=== PATIENT | female | born 1970 | race Caucasian/White ===

== ENCOUNTER → 2022-04-04 | Outpatient (CLI) | payer OTHER | END | disposition home or self-care (01) | LOC: DTH 09:38 | PROVIDERS: ATTEND Surgery | DX: Z71.3 Dietary counseling and surveillance (principal); K76.0 Fatty (change of) liver, not elsewhere classified; I10 Essential (primary) hypertension; E11.9 Type 2 diabetes mellitus without complications; M19.91 Primary osteoarthritis, unspecified site; G47.33 Obstructive sleep apnea (adult) (pediatric); E66.01 Morbid (severe) obesity due to excess calories; Z68.42 Body mass index [BMI] 45.0-49.9, adult | CPT/HCPCS: 97802 ==

== ENCOUNTER 2025-07-16 12:35 | Inpatient (IN) | payer OTHER ==
[2025-07-16] VITALS (21 sets, daily range): BP systolic 158–201; BP diastolic 63–125; PULSE 59–96; RESP 12–34; TEMP 98.3; O2SAT 98
[~2025-07-16] VITALS: Ht 162.6 cm; Wt 110.6 kg
[2025-07-16 12:58] LABS: IMMATURE GRANULOCYTE ABSOLUTE 0.02 K/uL (0-1); NUCLEATED RED BLOOD CELLS 0.0 % (0.0-0.19); PLATELET COUNT (AUTO) 201 K/uL (130-400); RED BLOOD CELL COUNT(AUTO) 4.68 MIL/uL (4.00-5.50); RED CELL DISTRIBUTION WIDTH 12.0 % (11.0-15.5); WHITE BLOOD COUNT (AUTO) 9.1 K/uL (4.8-10.8)
[2025-07-16 13:06] LABS: CREATININE 0.6 mg/dL (0.5-1.0); GLOMERULAR FILTR. RATE CALC 106.0 mL/min (>90); GLUCOSE,RANDOM 129.0 mg/dL (70-105); SODIUM SERUM 144.0 mmol/L (136-145); UREA NITROGEN, BLOOD 10.0 mg/dL (7-18)
[2025-07-16 13:11] LABS: CREATINE KINASE, TOTAL 83.0 U/L (21-232); LDL DIRECT 96.0 mg/dL (0-99)
[2025-07-16 13:17] LABS: INR 0.97 (0.85-1.15)
--- NOTE | 2025-07-16 13:18 | HMCIMG ---
EXAM: CT Head Without IV contrast. CLINICAL HISTORY: stroke, L sided numbness TECHNIQUE: Axial computed tomography images of the head/brain without intravenous contrast. COMPARISON: None provided. FINDINGS: BRAIN: Age-related cerebral atrophy. No evidence of acute haemorrhage. No mass lesion. No CT evidence for acute territorial infarct. No midline shift or extra-axial collections. VENTRICLES: No hydrocephalus. ORBITS: The orbits are unremarkable. SINUSES AND MASTOIDS: Mild left-sided mastoiditis. The paranasal sinuses and right mastoid air cells are clear. BONES: No fracture. SOFT TISSUES: Unremarkable. IMPRESSION: 1. No acute intracranial findings. 2. Mild left-sided mastoiditis. /[place]
--- NOTE | 2025-07-16 13:19 | ERN ---
General Chief Complaint: Stroke Symptoms Stated Complaint: LT SIDED NUMBNESS Time Seen by MD: 12:39 History of Present Illness Initial Comments 55-year-old female, history of hypertension, presents for left-sided arm numbness and leg numbness. Patient reports at 10:30 a.m. on 07/16/2025 she noticed some left-sided arm tingling and numbness. She reports that it radiated down to her leg into her face. No other focal neurologic deficits. No headache or vision changes. No vomiting or diarrhea. She has otherwise been in her normal state of health without any other complaints. Allergies: Coded Allergies: Amoxicillin (Unverified Allergy, Intermediate, HIVES,ITCHING, 02/09/12) Sulfamethoxazole (Unverified Allergy, Intermediate, HIVES,ITCHING, 02/09/12) trimethoprim (Unverified Allergy, Intermediate, HIVES,ITCHING, 02/09/12) Past Medical History Past Medical History: Diabetes-Type II, Hypertension Past Surgical History: Cholecystectomy Surgical History Other: GASTRIC BYPASS ROS Dictation CONSTITUTIONAL: No chills, no fever, no weakness, no diaphoresis, no malaise. HEAD/FACE: No signs of trauma. EENT: No eye pain, no blurred vision, no tearing, no double vision, no ear pain, no ear discharge, no nose pain, no nasal congestion, no throat pain, no throat swelling, no mouth pain. RESPIRATORY: No cough, no orthopnea, no SOB, no stridor, no wheezing. CARDIOVASCULAR: No chest pain, no edema, no palpitations, no syncope. GASTROINTESTINAL/ABDOMINAL: No abdominal pain, no constipation, no diarrhea, no nausea, no vomiting. GENITOURINARY: No abnormal discharge, no dysuria, no frequent urination, no hematuria. No complaints of pain in the genitals. MUSCULOSKELETAL: Arm numbness, leg numbness INTEGUMENTARY: No change in color, no change in hair/nails, no dryness, no lesion, no lumps, no rash. NEUROLOGICAL/PSYCH: No anxiety, not depressed, no emotional problem, no headache, no numbness, no pre-existing deficit, no history of seizures, no tremors, no weakness. HEMATOLOGIC/LYMPHATIC: Not anemic, no history of blood clots, no apparent bleeding, no bruising, glands not swollen. All Systems Negative, Except as Noted. Physical Exam Physical Exam Dictation VITAL SIGNS: Reviewed. GENERAL APPEARANCE: Alert, oriented x3, no acute distress, obese. HEAD AND FACE: Non-traumatic. EYES: PERRL, pink conjunctivas, eyelid no trauma, anterior chamber clear. EARS: Pinnas intact and no signs of trauma or erythema. Ear canals clear and no discharge. TMs no erythema. NOSE: No discharge, no bleeding. OROPHARYNX: Mouth normal, teeth no caries, tongue pink. Pharynx clear, no erythema. Tonsils no exudates, no abscesses noted. Mucous membrane moist. NECK: Supple, non-tender, no thyromegaly, no masses, no JVD, no bruits. BREAST: Deferred. CHEST: No tenderness, no crepitus, no paradoxical movement, no retractions. LUNGS: Clear, well-ventilated, symmetric, no rales, no wheezing, no rhonchi, no stridor, good breath sounds bilaterally. HEART: Regular rate, regular rhythm, no murmur, no gallops. VASCULAR: No peripheral edema. ABDOMEN: Soft, positive bowel sounds, nondistended, no guarding, nontender, no rebound, no masses no hepatomegaly, no splenomegaly, no Jacques's sign, no hernias. RECTAL: Deferred. GENITAL: Deferred. NEUROLOGICAL: Normal speech, gross motor function intact, gross sensory function intact. MUSCULOSKELETAL: Neck nontender, full range of motion, back nontender, full range of motion. EXTREMITIES: Nontender, full range of motion. SKIN: Color pink, dry, no turgor, no rash, no lacerations, no abrasions, no contusions. LYMPHATICS: Deferred. NIH STROKE SCALE: NIH STROKE SCALE Response (Comments) Value Level of Consciousness Alert 0 Ask patient month and their age Answers both correct 0 Command to open eyes, make fist and let go Obeys both correct 0 Best gaze (horizontal eye movement) Normal 0 Visual Field Testing No Visual Field Loss 0 Facial Paresis Normal / Symmetrical 0 Motor Function - Left Arm Normal 0 Motor Function - Right Arm Normal 0 Motor Function - Left Leg Normal 0 Motor Function - Right Leg Normal 0 Limb Ataxia No Ataxia 0 Sensory-pin prick to arms, legs, trunk and face Mild to Moderate Decrease 1 Best Language (describe picture, name items and read) No Aphasia 0 Dysarthria (read several words) Normal Articulation 0 Extinction and Inattention Normal 0 Total 1 Results Laboratory and Microbiology Lab and Micro Result Laboratory Tests Test 07/16/25 12:46 07/16/25 12:53 Whole Blood Glucose 137 MG/DL (70-110) H White Blood Count 9.1 K/uL (4.8-10.8) Red Blood Count 4.68 MIL/uL (4.00-5.50) Hemoglobin 15.5 g/dL (12.0-16.0) Hematocrit 46.4 % (36-48) Mean Corpuscular Volume 99.1 fL (79-99) H Mean Corpuscular Hemoglobin 33.1 pg (27.0-33.0) H Mean Corpuscular Hemoglobin Concent 33.4 g/dL (32.0-36.0) Red Cell Distribution Width 12.0 % (11.0-15.5) Platelet Count 201 K/uL (130-400) Mean Platelet Volume 10.5 fL (7.5-10.5) Immature Granulocyte % (Auto) 0.2 % (0-1) Neutrophils (%) (Auto) 58.1 % (40.0-77.0) Lymphocytes (%) (Auto) 32.3 % (21.0-51.0) Monocytes (%) (Auto) 7.4 % (3.0-13.0) Eosinophils (%) (Auto) 1.5 % (0.0-8.0) Basophils (%) (Auto) 0.5 % (0.0-5.0) Neutrophils # (Auto) 5.3 K/uL (1.8-7.7) Lymphocytes # (Auto) 2.9 K/uL (1.0-4.8) Monocytes # (Auto) 0.7 K/uL (0.1-1.0) Eosinophils # (Auto) 0.14 K/uL (0.00-0.70) Basophils # (Auto) 0.05 K/uL (0.00-0.20) Absolute Immature Granulocyte (auto 0.02 K/uL (0-1) Nucleated Red Blood Cells 0.0 % (0.0-0.19) Prothrombin Time 10.3 SEC (9.6-11.6) Prothromb Time International Ratio 0.97 (0.85-1.15) Activated Partial Thromboplast Time 24.4 SEC (26.3-35.5) L Sodium Level 144 mmol/L (136-145) Potassium Level 3.8 mmol/L (3.5-5.1) Chloride Level 104 mmol/L (101-111) Carbon Dioxide Level 31 mmol/L (21-32) Blood Urea Nitrogen 10 mg/dL (7-18) Creatinine 0.6 mg/dL (0.5-1.0) Glomerular Filtration Rate Calc 106 mL/min (>90) Random Glucose 129 mg/dL (70-105) H Hemoglobin A1c 6.1 % (4.0-6.0) H Estimated Average Glucose (eAG) 128 mg/dL (70-126) H Total Calcium 9.2 mg/dL (8.5-10.1) Total Creatine Kinase 83 U/L (21-232) Troponin I High Sensitivity 11 ng/L (4-50) LDL Cholesterol 96 mg/dL (0-99) Procalcitonin < 0.05 ng/mL (0.05-0.5) L Thyroid Stimulating Hormone (TSH) 1.19 uIU/mL (0.36-3.74) MDM CC: L sided numbness Historian: patient Comorbidities: HTN, obesity Limitations: none Ddx: stroke, TIA, spinal pathology, anxiety, other VS: HTN 229/127, other VSS LKW: 1030am 07/16/25 Initally came in as a code stroke. NIHSS 1. Went to CT scanner, CT head w/o contrast per my independent interpretation shows no acute bleeding. Confirmed with the radiologist no acute bleeding. Spoke with teleneurologist, Dr. Mccain. We agreed that patient has a very low NIHSS, not a good candidate for TNK at this time. He does recommend a full stroke workup including CT you angiogram, MRI, echocardiogram. Patient's blood pressure was still mildly elevated in the ER, given a dose of hydralazine. Given an aspirin. Patient admitted to hospitalist service for full workup. ED Course Orders Procedure Category Date Status Time Cbc With Differential LAB 07/16/25 Complete 12:48 Prothrombin Time With LAB 07/16/25 Complete INR 12:48 Partial LAB 07/16/25 Complete Thromboplastin Time 12:48 Ct Head/Brain W/O CT 07/16/25 Resulted Contrast 12:48 Chest 1vw RAD 07/16/25 Resulted 12:48 12 Lead Ekg Tracing- EKG 07/16/25 Complete Technical 12:48 Creatine Kinase, Total LAB 07/16/25 Complete 12:48 Ldl Direct LAB 07/16/25 Complete 12:48 Troponin I High LAB 07/16/25 Complete Sensitivity 12:48 Urinalysis Profile LAB 07/16/25 Logged 12:48 Bedside Glucose CPOE 07/16/25 Transmitted Fingerstick 12:48 Basic Metabolic Panel LAB 07/16/25 Complete 12:48 Ct Angio Head And Neck CT 07/16/25 Resulted 13:46 Hydralazine 20mg Inj PHA 07/16/25 Complete (Apresoline 20mg In 14:30 Aspirin 325mg Tab PHA 07/16/25 Complete (Aspirin 325mg Tab) 14:30 Iohexol (Omnipaque) PHA 07/16/25 Complete 14:13 Iohexol (Omnipaque) PHA 07/16/25 Complete 14:17 Current Medications Medications (Trade) Dose Ordered Sig/Sanjiv Route PRN Reason Start Time Stop Time Status Last Admin Dose Admin Aspirin (Aspirin 325mg Tab) 325 mg ONCE ONCE PO 07/16/25 14:30 07/16/25 14:31 DC 07/16/25 16:03 Hydralazine HCl (APRESOLine 20MG INJ) 10 mg ONCE ONCE IV 07/16/25 14:30 07/16/25 14:31 DC 07/16/25 16:03 Iohexol (Omnipaque) 75 ml STK-MED ONCE IV 07/16/25 14:13 07/16/25 14:13 DC Iohexol (Omnipaque) 75 ml STK-MED ONCE IV 07/16/25 14:17 07/16/25 14:17 DC Vital Signs Date Time Temp Pulse Resp B/P (MAP) Pulse Ox O2 Delivery O2 Flow Rate FiO2 07/16/25 16:03 185/89 07/16/25 15:10 72 20 175/100 99 Room Air* 0 21 07/16/25 14:00 75 20 196/80 99 Room Air* 0 21 07/16/25 13:07 98.6 89 20 202/80 99 Room Air* 0 21 07/16/25 12:42 98.2 75 16 229/127 97 Room Air 0 DX & DISP Disposition: Inpatient Departure Impression: Primary Impression: Stroke-like symptom Additional Impression: Accelerated hypertension Critical Time: 30 minutes (Critical Care Procedure NoteAuthorized and Performed by: meTotal critical care time: Approximately 36 minutesDue to a high probability of clinically significant, life threatening deterioration, the patient required my highest level of preparedness to intervene emergently and I personally spent this critical care time directly and personally managing the patient. This critical care time included obtaining a history; examining the patient; pulse oximetry; ordering and review of studies; arranging urgent treatment with development of a management plan; evaluation of patient's response to treatment; frequent reassessment; and, discussions with other providers.This critical care time was performed to assess and manage the high probability of imminent, life-threatening deterioration that could result in multi-organ failure. It was exclusive of separately billable procedures and treating other patients and teaching time.Please see MDM section and the rest of the note for further information on patient assessment and treatment.) Condition: Stable SHANNAN BOWEN DO Jul 16, 2025 13:19
--- NOTE | 2025-07-16 13:24 | CONS ---
CONSULT NOTE: [facility] Note # Demographics Consult Type: General Neurology Patient Location: Emergency Room First Name: JACLYN Last Name: MISHA MANZANO Date of : 1970 Age: 55 Gender: Female Facility: [facility] Time of Initial Page (Central Time): 07/16/2025 12:56 First Contact with Site (Central Time): 07/16/2025 12:56 # HPI History: at 1030am, numbness in LUE and LLE and left face. no other deficits. NIHSS 1. h/o HTN and obesity. on beaming in, pt reportedly in scanner. they will notify back when pt is back and ready for eval. mild STRONG. no neck pain. Associated Symptoms: - no light sensitivity - no sound sensitivity - no nausea - no vomiting Quality: - no word finding difficulty - no weakness - no slurred speech # Scores Time of exam and NIHSS (Central Time): 07/16/2025 13:18 Level of Consciousness 1a: [0] = Alert; keenly responsive LOC Questions 1b: [0] = Answers both questions correctly LOC Commands 1c: [0] = Performs both tasks correctly Best Gaze 2: [0] = Normal Visual 3: [0] = No visual loss Facial Palsy 4: [0] = Normal symmetrical movements Motor Arm Left 5a: [0] = No drift Motor Arm Right 5b: [0] = No drift Motor Leg Left 6a: [0] = No drift Motor Leg Right 6b: [0] = No drift Limb Ataxia 7: [0] = Absent Sensory 8: [1] = Bvyu-la-oipempip sensory loss Best Language 9: [0] = No aphasia Dysarthria 10: [0] = Normal Extinction and Inattention 11: [0] = No abnormality NIHSS Total: 1 # Data Time Head CT personally read by me (Central Time): 07/16/2025 13:[address]: - no bleed # Assessment Impression: - Ischemic Stroke (Acute) Differential Diagnosis: - Stroke Mimic # Plan Thrombolytic/Intervention: NOT IV Thrombolysis or IA Intervention candidate Thrombolytic Exclusion (< 3 hour window): - non-disabling deficit Intraarterial Exclusion: - non-disabling Target Blood Pressure: - SBP < 220 - DBP < 120 Labs: - ESR - hemoglobin A1c - lipid panel - TSH - B12 Imaging: (urgency: STAT): - CT Angiogram Head and CT Angiogram Neck AND call back with results if abnormal Imaging: (urgency: routine): - MRI Brain without contrast if possible Diagnostic Test: - echo with bubble study Therapy/Evaluation: - NPO until swallow evaluation Medication: - start statin with goal of LDL < 70 - aspirin 81 mg daily DVT Prophylaxis: - SCD - chemical DVT prophylaxis Other: - If patient has any neurological deterioration please call me back immediately - telemetry monitoring - I have discussed my recommendations with the referring provider - will need event monitor or loop recorder as outpatient if atrial fibrillation not found as inpatient - would not pursue stroke work-up if MRI is negative - permissive hypertension Additional Recommendations: if MRi shows a stroke and no etiology found, recommend Adding plavix for 21 days and life long ASA. # Logistics Attestation of consult completion: The patient is located at: [facility]. Facility staff participated in the visit. I performed this telemedicine visit from my offsite office utilizing interactive 2 way audio and visual telecommunication technology at the request of the onsite emergency room provider. Total time spent in telemedicine encounter: I spent 15 minutes reviewing clinical data and/or imaging, obtaining history, examining the patient, communicating with the onsite care team, and in preparation of this report. # Demographics First Name: JACLYN Last Name: MISHA MANZANO Facility: [facility] MICHELLE HOBSON MD Jul 16, 2025 13:24
--- NOTE | 2025-07-16 13:56 | EKG ---
[facility] Test Date: 2025-07-16 Test Time: 13:22:13 Pat Name: JACLYN MANZANO Department: [facility] Room: 216 Gender: F Adoption Counselor: [id number] : 1970 Requested By: SHANNAN BOWEN Order Number: [id number] Reading MD: Jay Lynne Measurements Intervals [place] Rate: 81 P: 40 CO: 164 QRS: -56 QRSD: 155 T: 0 QT: 434 QTc: 516 Interpretive Statements Sinus rhythm Sinus arhythmia Probable left atrial enlargement RBBB and LAFB No previous ECG available for comparison Electronically Signed On 07-17-2025 06:59:57 CDT by Jay Lynne Please click the below link to view image of tracing.
--- NOTE | 2025-07-16 13:56 | HMCIMG ---
EXAM: CR Chest, 1 View. CLINICAL HISTORY: stroke COMPARISON: None provided. FINDINGS: LUNGS: The lungs show no infiltrate or other acute finding. PLEURAL SPACES: No evidence of pleural effusion or pneumothorax. MEDIASTINUM: Cardiac size and mediastinal contours within normal limits. BONES: No aggressive appearing osseous lesion seen. IMPRESSION: No acute cardiopulmonary pathology is evident. /[place]
[2025-07-16] MEDS ORDERED: IOHEXOL-350 75 ML VIAL IV ONE ×2 (14:13→14:17)
--- NOTE | 2025-07-16 15:59 | HMCIMG ---
EXAM: CTA Head and Neck with and without Intravenous Contrast. CLINICAL HISTORY: stroke symptoms, left sided numbness TECHNIQUE: Axial CTA images of the head and neck performed with and without intravenous contrast in the arterial phase. Coronal and sagittal reformatted images were generated and reviewed. 3-D reformatted images generated on an independent workstation were also reviewed. NASCET criteria were used in assessment of stenosis. CONTRAST: Contrast injected without incident. COMPARISON: None provided. FINDINGS: VASCULATURE:NECK: COMMON CAROTID ARTERIES No significant stenosis. No dissection or occlusion. EXTERNAL CAROTID ARTERIES Patent. INTERNAL CAROTID ARTERIES No stenosis by NASCET criteria. No dissection or occlusion. VERTEBRAL ARTERIES No significant stenosis. No dissection or occlusion. HEAD: ANTERIOR CEREBRAL ARTERIES No significant stenosis. No occlusion. No aneurysm. MIDDLE CEREBRAL ARTERIES No significant stenosis. No occlusion. No aneurysm. POSTERIOR CEREBRAL ARTERIES No significant stenosis. No occlusion. No aneurysm. BASILAR ARTERY No significant stenosis. No occlusion. No aneurysm. OTHER: SOFT TISSUES No acute finding. BONES No acute osseous abnormality. IMPRESSION: Unremarkable CTA of the head and neck. /[place]
[2025-07-16] MEDS: ASPIRIN 325MG TAB PO ONE (16:03)
--- NOTE | 2025-07-16 16:53 | HP ---
[facility] HISTORY [facility] PHYSICAL Date of Service: Jul 16, 2025 Time of Service: 16:42 HISTORY OF PRESENT ILLNESS: 55-year-old female with past medical history of gastric bypass surgery, gastric who presented to the hospital secondary to paresthesias on the left upper and lower extremity. Patient states around 9:45 a.m. today she noted that she was having upper and lower extremity paresthesias. She also felt that her left upper extremity was heavy. She has never had this symptoms before. She was able to ambulate and denied any dysphagia, slurred speech, word-finding difficulty. She did have episode of headache with her symptoms. She denied any upper extremity and lower extremity weakness. Denied any changes in her appetite. Denied any nausea, vomiting, abdominal pain, shortness of breath, chest pain. She does state she had an episode of abdominal pain yesterday which resolved without intervention. Denied any changes in her bowel movement. She does take multivitamins at home but denies any previous history of hypertension. She currently does not take any antihypertensives at home. She did complain of left facial paresthesias but denied any vision changes, swallowing difficulties. Her symptoms improved after she came to the hospital Labs in the ED were notable for white count of 9.1, hemoglobin was 15.5, MCV was 99.1, platelet count was 201 K, sodium was 144, potassium was 3.8, creatinine was 0.6, troponin was negative x1, LDL cholesterol was 96 Patient underwent a chest x-ray which showed no acute abnormality. She underwent a CT head which showed no intracranial findings. Did show mild left- sided mastoiditis, patient underwent a head and neck CT angiogram which showed no acute significant stenosis. Presentation to the ED patient's blood pressure was 229/127, heart rate was 75, oxygen was 97% on room air. Tele neurology was consulted in the ED and patient was noted to have NIH stroke scale of one. She was deemed not to be a candidate for tPA. REVIEW OF SYSTEMS CONSTITUTIONAL: Denies fevers, chills, or night sweats. No unintentional weight loss reported. NEUROLOGICAL: Denies headache, amaurosis fugax, motor weakness, gait abnormalities, or tremors. Positive for paresthesias in the left upper and lower extremity. Positive for decreased strength in the left upper arm ENT: No hearing loss, otalgia, otorrhea, rhinitis, rhinorrhea, hoarseness, or sore throat. CARDIOVASCULAR: Denies any exertional angina, dyspnea on exertion, orthopnea, paroxysmal nocturnal dyspnea, palpitations, life-threatening arrhythmias, claudication. PULMONARY: Denies any shortness of breath, cough, phlegm/sputum, hemoptysis, pleuritic chest pain. GASTROINTESTINAL: Denies any type of dysphagia to either liquids or solids. Denies nausea, vomiting, pyrosis, early satiety, abdominal pain, diarrhea, constipation, or changes in stool consistency or caliber. Denies coffee-ground emesis, hematemesis, hematochezia, or melanotic stools. GENITOURINARY: Denies frequency, urgency, nocturia, hematuria or incontinence (Storage/Irritative symptoms.) Low urinary stream, straining to void, urinary intermittency or hesitancy, splitting of the voiding stream, terminal dribbling. ENDOCRINOLOGIC: Denies polyuria, polydipsia, polyphagia or heat/cold intolerances. HEMATOLOGIC: Denies thrombophilia/previous clots, or coagulopathy/bleeding disorders. ONCOLOGIC: Denies personal history of malignancy. DERMATOLOGIC: Denies rashes or pruritus. PSYCHIATRIC: Denies any suicidal or homicidal ideation. Denies hallucinations. PAST MEDICAL HISTORY: Obesity PAST SURGICAL HISTORY: Gastric bypass surgery, gastric sleeve PAST SOCIAL HISTORY: Denied any smoking, alcohol, drug use FAMILY HISTORY: Denied any pertinent family history Coded Allergies: Amoxicillin (Unverified Allergy, Intermediate, HIVES,ITCHING, 02/09/12) Sulfamethoxazole (Unverified Allergy, Intermediate, HIVES,ITCHING, 02/09/12) trimethoprim (Unverified Allergy, Intermediate, HIVES,ITCHING, 02/09/12) PHYSICAL EXAM GENERAL APPEARANCE: The patient is awake, alert, and oriented, in no acute c ardiopulmonary distress. NEUROLOGICAL: Cranial nerves II-XII grossly intact. Motor is 5/5 in bilateral upper and lower extremities proximal to distal. No sensory deficits. HEENT: Face is symmetric. Pupils are equal and reactive. Extraocular movements are intact. NECK: Supple. No JVD. No thyromegaly. No submental, submandibular, pre- /postauricular, occipital or supraclavicular lymphadenopathy. CHEST: Normal chest expansion. No Telemetry. LUNGS: Absence of any rales, rhonchi or any wheezing. CARDIOVASCULAR: Regular. S1 and S2 normal. No appreciable rubs, murmurs or gallops. ABDOMEN: Soft, nontender, and nondistended. There is no rebound, voluntary guarding, or rigidity. : Deferred. No Wagner. EXTREMITIES: Non-edematous and not cyanotic. No clubbing. Good capillary refill. SKIN: No skin breakdown. Vital Sign (Last 24 Hours) 07/16/25 07/16/25 13:07 16:03 Temp 98.6 Pulse 89 Resp 20 B/P (MAP) 185/89 Pulse Ox 99 O2 Delivery Room Air* O2 Flow Rate 0 FiO2 21 LABS: Laboratory: Test 07/16/25 12:53 07/16/25 12:46 Range/Units White Blood Count 9.1 4.8-10.8 K/uL Red Blood Count 4.68 4.00-5.50 MIL/uL Hemoglobin 15.5 12.0-16.0 g/dL Hematocrit 46.4 36-48 % Mean Corpuscular Volume 99.1 H 79-99 fL Mean Corpuscular Hemoglobin 33.1 H 27.0-33.0 pg Mean Corpuscular Hemoglobin Concent 33.4 32.0-36.0 g/dL Red Cell Distribution Width 12.0 11.0-15.5 % Platelet Count 201 130-400 K/uL Mean Platelet Volume 10.5 7.5-10.5 fL Immature Granulocyte % (Auto) 0.2 0-1 % Neutrophils (%) (Auto) 58.1 40.0-77.0 % Lymphocytes (%) (Auto) 32.3 21.0-51.0 % Monocytes (%) (Auto) 7.4 3.0-13.0 % Eosinophils (%) (Auto) 1.5 0.0-8.0 % Basophils (%) (Auto) 0.5 0.0-5.0 % Neutrophils # (Auto) 5.3 1.8-7.7 K/uL Lymphocytes # (Auto) 2.9 1.0-4.8 K/uL Monocytes # (Auto) 0.7 0.1-1.0 K/uL Eosinophils # (Auto) 0.14 0.00-0.70 K/uL Basophils # (Auto) 0.05 0.00-0.20 K/uL Absolute Immature Granulocyte (auto 0.02 0-1 K/uL Nucleated Red Blood Cells 0.0 0.0-0.19 % Prothrombin Time 10.3 9.6-11.6 SEC Prothromb Time International Ratio 0.97 0.85-1.15 Activated Partial Thromboplast Time 24.4 L 26.3-35.5 SEC Sodium Level 144 136-145 mmol/L Potassium Level 3.8 3.5-5.1 mmol/L Chloride Level 104 101-111 mmol/L Carbon Dioxide Level 31 21-32 mmol/L Blood Urea Nitrogen 10 7-18 mg/dL Creatinine 0.6 0.5-1.0 mg/dL Glomerular Filtration Rate Calc 106 >90 mL/min Random Glucose 129 H 70-105 mg/dL Total Calcium 9.2 8.5-10.1 mg/dL Total Creatine Kinase 83 21-232 U/L Troponin I High Sensitivity 11 4-50 ng/L LDL Cholesterol 96 0-99 mg/dL Whole Blood Glucose 137 H 70-110 MG/DL Current Medications Medications (Trade) Dose Ordered Sig/Sanjiv Route PRN Reason Start Time Stop Time Status Last Admin Dose Admin Acetaminophen (TYLenol 500MG TAB) 500 mg Q6H PRN PO MILD PAIN (1-3) 07/16/25 16:30 08/15/25 16:29 Famotidine (Pepcid 20mg Vial) 20 mg BID IV 07/16/25 21:00 08/15/25 20:59 Hydralazine HCl (APRESOLine 20MG INJ) 10 mg Q6H PRN IV ADMINISTER FOR BP > 220/120 07/16/25 16:30 08/15/25 16:29 Ondansetron HCl (zoFRAN 4MG INJ) 4 mg Q6H PRN IVP NAUSEA/VOMITING 07/16/25 16:30 08/15/25 16:29 DIAGNOSTICS / RADIOLOGY: [ ] ASSESSMENT: left-sided per and lower extremity paresthesia differential: Acute stroke versus TIA versus symptoms secondary to hypertensive emergency Suspected stroke versus TIA Hypertensive emergency POA History of gastric bypass surgery, gastric sleeve, Obesity BMI 42.0 Suspected sleep apnea PLAN: - admit patient to ICU -in reference to suspected stroke versus TIA. We will obtain a brain MRI for further evaluation. We will request consultation with Neurology. The patient to be started on aspirin daily. Obtain echo with bubble study. Patient to be monitored on telemetry. -reference to hypertensive emergency. We will keep patient on permissive hypertension per tele Neurology recommendations. Start hydralazine for blood pressure greater than 220/120. We will gradually decrease blood pressure -check TSH, hemoglobin A1c -obtain home medications which will be reconciled once available -further orders per hospitalization course. Advanced Care Planning Which of the following were discussed: Hospice care: Yes __ No x__ Therapeutic options: Yes __ No __ Advance directives: Yes __ No __ Other discussions: Discussed with who?: patient (Patient, family or surrogates) Voluntary nature of this service was explained to the patient? Yes _x_ No __ Amount of time spent: 25 minutes RULA Weiner MD, MD Jul 16, 2025 16:52
--- NOTE | 2025-07-16 18:39 | NUR ---
REPORT GIVEN TO GENNY AT THIS TIME
--- NOTE | 2025-07-16 20:04 | NUR ---
DR. MONTEJO SPOKE WITH MD AND NOTIFIED OF PATIENT ARRIVAL AND NEW CONSULT. DISCUSSED PATIENT HX AND CT HEAD/ CT HEAD AND NECK ANGIO RESULTS. NIH SCORE OF 1. DECREASED SENSATION. MRI PENDING FOR TOMORROW 07/17/2025. PER MD NO NEW ORDERS.
--- NOTE | 2025-07-16 20:07 | NUR ---
CRITICAL CARE DIE BARBER FERN STATED PATIENT WILL BE SEEN TOMORROW MORNING. NO NEW ORDERS Addendum: 07/16/25 at 2013 by YANNI GALDAMEZ RN RN NOTIFIED DIE BARBER OF NEW CONSULT AND PATIENT ARRIVAL TO UNIT NO NEW ORDERS.
--- NOTE | 2025-07-16 20:11 | NUR ---
CARDIOLOGY NOTIFIED DR. POSADAS OF NEW CONSULT. MD AWARE, NO NEW ORDERS.
--- NOTE | 2025-07-16 22:21 | CONS ---
CONSULT NOTE: CARDIOLOGY Reason for consult: Left arm numbness HPI/story at presentation: This is a pleasant 55-year-old female with past medical history of lupus with complaints of atypical chest discomfort, left arm numbness, facial numbness Eskandar being worked up for possible CVA/TIA. Cardiology was consulted for further evaluation management Past medical history: See below Allergies, Meds See chart Review of systems Review of Systems Constitutional: Negative for chills and fever. HENT: Negative for ear discharge and ear pain. Eyes: Negative for photophobia and discharge. Respiratory: Negative for cough, sputum production and stridor. Cardiovascular: Negative for chest pain and palpitations. Gastrointestinal: Negative for diarrhea and vomiting. Genitourinary: Negative for frequency. Musculoskeletal: Negative for myalgias. Skin: Negative for rash. Neurological: Negative for focal weakness and seizures. Endo/Heme/Allergies: Negative for polydipsia. Psychiatric/Behavioral: Negative for hallucinations. Vitals see chart PHYSICAL EXAMINATION GENERAL: The patient is alert and oriented*3 HEENT: Nonicteric sclerae, non traumatic HEART: Regular rate and rhythm with no murmurs LUNGS: Clear to auscultation bilaterally ABDOMEN: No acute issues, non tender GENITAL, RECTAL: deferred SKIN: No rash NEUROLOGIC: NFND EXTREMITIES: No edema ASSESSMENT LEFT-SIDED NUMBNESS, WEAKNESS TIA/CVA being worked up, 07/16/2025 Echocardiogram, bubble study was negative for any abnormalities, MRI was also negative. PREVIOUS HISTORY OF GASTRIC BYPASS, OBESITY, SLEEP APNEA HYPERTENSION With urgency at presentation CORE MEASURES Pending OTHER MEDICAL PROBLEMS Reviewed PLAN 07/16/2005/28/2025 echocardiogram has been ordered to further evaluate for possible wall source of emboli. MRI is also pending to evaluate for CVA. Numbness has improved. Seen and examined 07/16/2025 around 9 PM. ATTESTATION I was involved substantially in the care of this patient Number and complexity of problems addressed: 1 acute illness with systemic features Amount and or complexity of data Review of prior external note(s) from each unique source: 2+ Ordering of each unique test : 0 Review of the result(s) of each unique test: 2+ Assessment requiring an independent historian(s): No Independent interpretation of test performed by another MD/QHCP/appropriate source (not separately reported) : No Discussion of management or test interpretation with external MD/QHCP/appropriate source (not separately reported) : No Risk status (cardiac, billing related): Moderate CALIN RUVALCABA MD Jul 16, 2025 22:21
--- NOTE | 2025-07-16 22:27 | NUR ---
CARDIOLOGY DR. POSADAS AT BEDSIDE PATIENT SEEN NO NEW ORDERS.
[2025-07-16] MEDS: FAMOTIDINE 20MG VIAL IV SCH (22:55)
[2025-07-17] VITALS (34 sets, daily range): BP systolic 144–216; BP diastolic 65–121; PULSE 56–94; RESP 13–28; TEMP 97.8–98.5; O2SAT 95–99
[2025-07-17 05:38] LABS: IMMATURE GRANULOCYTE ABSOLUTE 0.02 K/uL (0-1); NUCLEATED RED BLOOD CELLS 0.0 % (0.0-0.19); PLATELET COUNT (AUTO) 207 K/uL (130-400); RED BLOOD CELL COUNT(AUTO) 4.54 MIL/uL (4.00-5.50); RED CELL DISTRIBUTION WIDTH 12.0 % (11.0-15.5); WHITE BLOOD COUNT (AUTO) 8.5 K/uL (4.8-10.8)
[2025-07-17 05:42] LABS: CREATININE 0.6 mg/dL (0.5-1.0); GLOMERULAR FILTR. RATE CALC 106.0 mL/min (>90); GLUCOSE,RANDOM 125.0 mg/dL (70-105); SODIUM SERUM 144.0 mmol/L (136-145); UREA NITROGEN, BLOOD 6.0 mg/dL (7-18)
[2025-07-17 07:40] LABS: APPEARANCE,URINE CLEAR (CLEAR); GLUCOSE, URINE (UA) NEGATIVE (NEGATIVE); LEUKOCYTE ESTERASE ,URINE NEGATIVE Leu/uL (NEGATIVE); NITRATE,URINE NEGATIVE (NEGATIVE); OCCULT BLOOD,URINE NEGATIVE (NEGATIVE)
[2025-07-17 07:45] LABS: ADD UA MICROSCOPIC YES
[2025-07-17 07:48] LABS: AMPHET/METH SCREEN,URINE NEGATIVE (NEGATIVE); BARBITURATE SCREEN, URINE NEGATIVE (NEGATIVE); CANNABINOID SCREEN,URINE NEGATIVE (NEGATIVE); COCAINE SCREEN,URINE NEGATIVE (NEGATIVE)
[2025-07-17 07:50] LABS: SQUAMOUS EPITHELIAL CELL,UR FEW /HPF (0-2)
[2025-07-17] MEDS: ASPIRIN 81 MG EC TAB PO SCH (08:08)
--- NOTE | 2025-07-17 09:12 | CONS ---
[facility] CONSULTATION NOTE Date Patient Seen: Jul 17, 2025 Time of Visit: 09:12 Supervising Physician: Seb Ward MD Reason for Consultation: [facility] Primary Care Physician: Tank Ramos MD Outpatient Specialists: [ ] Inpatient Consults: [facility] PROBLEM LIST: Hypertensive emergency, POA Acute CVA ruled out Paresthesia to left side POA resolved Obesity BMI 42.0 Suspected JOYCE STOP-BANG Score 4 points ( High risk) History of gastric bypass surgery, gastric sleeve, HPI: This is a morbidly obese female with a BMI of 42.1 Post gastric bypass who presented to the ED for paresthesia on the left upper and lower extremity on 07/16/25. She also presented with a blood pressure of 229/127 on arrival to the ED, heart rate in the 70s, saturating 96% on room air in no apparent respiratory distress and afebrile. She was admitted to the ICU for hypertensive emergency and stroke workup. We are consulted for critical care management. On assessment patient is awake alert and oriented x3. paresthesia has resolved. Blood pressure of 176/93 with a heart rate in the 90s respiratory rate of 22 saturating 96% on room air and afebrile. Paresthesia has resolved. NIH of 0. CTA of the head and neck unremarkable. CT of the head without contrast shows left-sided mastoiditis. CBC unremarkable, chemistries carbon [id number] creatinine 0.6 GFR of 106 [id number] mg/dL hemoglobin A1c 6.1, vitamin B12 10 40, TSH 1.18. Chest x-ray shows no acute cardiopulmonary pathology is seven empiric troponins were negative. 2D echo was done pending results. Patient denies any chest pain palpitations shortness for breath. She reports being told in 2020 after an occult infection that she had some high blood pressure. She was told to take metoprolol due to tachycardia and hypotension as needed. As per patient she has not been taking anything for hypertension due to she does not have resolved and that it was not that high. She denies any episodes of snoring at night or difficulty sleeping. She does report feeling tired during the day, hypertension, BMI greater than 35 and given the she is55 years old she has been high-risk for JOYCE. Recommended her to follow up with furniture polisher of choice once discharge to be tested for sleep apnea. Patient verbalized understanding. For now we will continue to decrease blood pressure gradually. We will maintain systolic blood pressure less than 180 today. Started patient on lisinopril 10 mg daily and added enalapril 1.25 mg IV q.6 hours PRN systolic blood pressure greater than 180. Otherwise patient can downgrade to PCCU. She is off Cardene. PAST MEDICAL HX: see above PAST SURGICAL HX: noncontributory SOCIAL HISTORY: No tobacco, ETOH, or illicit drug use Coded Allergies: amoxicillin (Unverified Allergy, Intermediate, HIVES,ITCHING, 02/09/12) shellfish derived (Unverified Allergy, Intermediate, HIVES/ITCHING, 07/17/25) sulfamethoxazole (Unverified Allergy, Intermediate, HIVES,ITCHING, 02/09/12) trimethoprim (Unverified Allergy, Intermediate, HIVES,ITCHING, 02/09/12) REVIEW OF SYSTEMS: 12 point ROS reviewed with patient. Pertinent positives mentioned above. Otherwise negative. PHYSICAL EXAM: GENERAL: Alert, weak, awake oriented x 3 HEENT: EOMI, Sclera non icteric, moist mucosa NECK: Supple, no JVD, trachea midline LUNGS: Diminished breath sounds bilaterally. No wheezes HEART: Regular rate and rhythm. Normal S1 and S2, without murmurs ABD: Abdomen soft, nontender. Bowel sounds present EXT: No clubbing cyanosis or edema NEURO: Alert and oriented to person, follows commands Vital Signs (last 8hr) Date Time Temp Pulse Resp B/P (MAP) Pulse Ox O2 Delivery O2 Flow Rate FiO2 07/17/25 08:00 96 Room Air* 0 21 07/17/25 08:00 98.1 94 22 176/93 96 Room Air 07/17/25 07:00 62 13 186/90 96 Room Air 07/17/25 05:55 62 14 173/91 97 07/17/25 05:40 58 15 158/88 96 07/17/25 05:25 64 19 163/90 97 07/17/25 05:10 58 20 164/91 96 07/17/25 04:55 64 19 170/90 96 07/17/25 04:40 64 20 154/83 96 07/17/25 04:25 65 17 162/94 97 07/17/25 04:10 56 18 154/86 95 07/17/25 04:00 95 Room Air* 0 21 07/17/25 04:00 98.2 07/17/25 03:55 61 15 150/67 94 07/17/25 03:40 57 151/85 95 07/17/25 03:40 57 15 151/85 95 07/17/25 03:25 59 15 157/86 94 07/17/25 03:10 64 17 161/84 95 07/17/25 02:55 58 16 151/91 95 07/17/25 02:40 58 17 150/86 96 07/17/25 02:25 58 18 153/86 95 07/17/25 02:10 59 14 152/85 94 07/17/25 01:55 62 15 152/79 95 07/17/25 01:40 61 17 159/82 95 07/17/25 01:25 61 18 159/82 95 LABS: Hematology Labs: Test 07/17/25 03:22 Range/Units White Blood Count 8.5 4.8-10.8 K/uL Red Blood Count 4.54 4.00-5.50 MIL/uL Hemoglobin 15.2 12.0-16.0 g/dL Hematocrit 44.0 36-48 % Mean Corpuscular Volume 96.9 79-99 fL Mean Corpuscular Hemoglobin 33.5 H 27.0-33.0 pg Mean Corpuscular Hemoglobin Concent 34.5 32.0-36.0 g/dL Red Cell Distribution Width 12.0 11.0-15.5 % Platelet Count 207 130-400 K/uL Mean Platelet Volume 11.1 H 7.5-10.5 fL Immature Granulocyte % (Auto) 0.2 0-1 % Neutrophils (%) (Auto) 53.4 40.0-77.0 % Lymphocytes (%) (Auto) 36.2 21.0-51.0 % Monocytes (%) (Auto) 8.1 3.0-13.0 % Eosinophils (%) (Auto) 1.6 0.0-8.0 % Basophils (%) (Auto) 0.5 0.0-5.0 % Neutrophils # (Auto) 4.6 1.8-7.7 K/uL Lymphocytes # (Auto) 3.1 1.0-4.8 K/uL Monocytes # (Auto) 0.7 0.1-1.0 K/uL Eosinophils # (Auto) 0.14 0.00-0.70 K/uL Basophils # (Auto) 0.04 0.00-0.20 K/uL Absolute Immature Granulocyte (auto 0.02 0-1 K/uL Nucleated Red Blood Cells 0.0 0.0-0.19 % Erythrocyte Sedimentation Rate 16 0-30 MM/HR Chemistry Labs: Test 07/17/25 03:22 07/16/25 20:20 07/16/25 12:53 Range/Units Sodium Level 144 136-145 mmol/L Potassium Level 4.8 3.5-5.1 mmol/L Chloride Level 107 101-111 mmol/L Carbon Dioxide Level 28 21-32 mmol/L Blood Urea Nitrogen 6 L 7-18 mg/dL Creatinine 0.6 0.5-1.0 mg/dL Glomerular Filtration Rate Calc 106 >90 mL/min Random Glucose 125 H 70-105 mg/dL Total Calcium 9.3 8.5-10.1 mg/dL Magnesium Level 2.30 1.80-2.40 mg/dL C-Reactive Protein, Quantitative < 0.50 L 0.5-3.0 mg/L Vitamin B12 Level 1040 H 193-986 pg/mL Whole Blood Glucose 146 H 70-110 MG/DL Hemoglobin A1c 6.1 H 4.0-6.0 % Estimated Average Glucose (eAG) 128 H 70-126 mg/dL Total Creatine Kinase 83 21-232 U/L Troponin I High Sensitivity 11 4-50 ng/L LDL Cholesterol 96 0-99 mg/dL Procalcitonin < 0.05 L 0.05-0.5 ng/mL Thyroid Stimulating Hormone (TSH) 1.19 0.36-3.74 uIU/mL Coagulation Labs: Test 07/16/25 12:53 Range/Units Prothrombin Time 10.3 9.6-11.6 SEC Prothromb Time International Ratio 0.97 0.85-1.15 Activated Partial Thromboplast Time 24.4 L 26.3-35.5 SEC DIAGNOSTICS / RADIOLOGY RESULTS: [ [place] [address] [address] IMAGING REPORT Signed PATIENT: JACLYN CHATMAN MR#: [id number] : 1970 SEX: F AGE: 55 LOCATION: 2CH ORDER 1000 STATUS: ADM IN REPORT#: [id number] SERVICE REASON: R/O STROKE ORDERING PHYSICIAN: CHINO DOE PROCEDURE: BRAIN WO - MR BRAIN WO CON EXAM: MR Brain Without IV contrast. CLINICAL HISTORY: R/O STROKE TECHNIQUE: Multisequence, multiplanar magnetic resonance images acquired of the brain. CONTRAST: None. COMPARISON: CT head dated 16 July 2025. FINDINGS: BRAIN: Multiple punctate T2/FLAIR hyperintensities are present along the subcortical white matter of the bilateral fronto-parietal lobe, representing small vessel ischemic changes. There is no restricted diffusion to indicate acute infarction. There is no intracranial mass or hemorrhage. There is no midline shift or extra-axial fluid collection. There is no cerebellar tonsillar ectopia. There is no abnormal enhancement. The central arterial and venous flow voids are patent. VENTRICLES: There is no hydrocephalus. ORBITS: The orbits are normal. SINUSES AND MASTOIDS: The sinuses and mastoid air cells are clear. BONES: There is no acute fracture or aggressively appearing osseous lesion. IMPRESSION: 1. No acute intracranial findings. 2. Chronic small vessel ischemic changes in bilateral fronto-parietal subcortical white matter. /[place] DICTATED BY: JOAQUÍN MULLNE Jr., MD DATE: 07/17/251333 ELECTRONICALLY SIGNED BY: JOAQUÍN MULLEN Jr., MD DATE: 07/17/251333 ] [place] [id number] IMAGING REPORT Addendum PATIENT: JACLYN CHATMAN MR#: [id number] : 1970 SEX: F AGE: 55 LOCATION: [facility] ORDER 46 STATUS: REG ER REPORT#: [id number] SERVICE 134 REASON: stroke symptoms, left sided numbness ORDERING PHYSICIAN: SHANNAN SANDOVAL DO [facility]EDURE[facility] AND [facility]K ADDENDUM REPORT ADDENDUM: Results were shared by telephone at 05:04 PM on 07-16-[address] Jaime Malhotra /[place] EXAM: CTA Head and Neck with and without Intravenous Contrast. CLINICAL HISTORY: stroke symptoms, left sided numbness TECHNIQUE: Axial CTA images of the head and neck performed with and without intravenous contrast in the arterial phase. Coronal and sagittal reformatted images were generated and reviewed. 3-D reformatted images generated on an independent workstation were also reviewed. NASCET criteria were used in assessment of stenosis. CONTRAST: Contrast injected without incident. COMPARISON: None provided. FINDINGS: VASCULATURE:NECK: COMMON CAROTID ARTERIES No significant stenosis. No dissection or occlusion. EXTERNAL CAROTID ARTERIES Patent. INTERNAL CAROTID ARTERIES No stenosis by NASCET criteria. No dissection or occlusion. VERTEBRAL ARTERIES No significant stenosis. No dissection or occlusion. HEAD: ANTERIOR CEREBRAL ARTERIES No significant stenosis. No occlusion. No aneurysm. MIDDLE CEREBRAL ARTERIES No significant stenosis. No occlusion. No aneurysm. POSTERIOR CEREBRAL ARTERIES No significant stenosis. No occlusion. No aneurysm. BASILAR ARTERY No significant stenosis. No occlusion. No aneurysm. OTHER: SOFT TISSUES No acute finding. BONES No acute osseous abnormality. IMPRESSION: Unremarkable CTA of the head and neck. /[place] DICTATED BY: LUDWIN PALACIOS MD DATE: 07/16/251705 ELECTRONICALLY SIGNED BY: DATE: EXAM: CTA Head and Neck with and without Intravenous Contrast. CLINICAL HISTORY: stroke symptoms, left sided numbness TECHNIQUE: Axial CTA images of the head and neck performed with and without intravenous contrast in the arterial phase. Coronal and sagittal reformatted images were generated and reviewed. 3-D reformatted images generated on an independent workstation were also reviewed. NASCET criteria were used in assessment of stenosis. CONTRAST: Contrast injected without incident. COMPARISON: None provided. FINDINGS: VASCULATURE:NECK: COMMON CAROTID ARTERIES No significant stenosis. No dissection or occlusion. EXTERNAL CAROTID ARTERIES Patent. INTERNAL CAROTID ARTERIES No stenosis by NASCET criteria. No dissection or occlusion. VERTEBRAL ARTERIES No significant stenosis. No dissection or occlusion. HEAD: ANTERIOR CEREBRAL ARTERIES No significant stenosis. No occlusion. No aneurysm. MIDDLE CEREBRAL ARTERIES No significant stenosis. No occlusion. No aneurysm. POSTERIOR CEREBRAL ARTERIES No significant stenosis. No occlusion. No aneurysm. BASILAR ARTERY No significant stenosis. No occlusion. No aneurysm. OTHER: SOFT TISSUES No acute finding. BONES No acute osseous abnormality. IMPRESSION: Unremarkable CTA of the head and neck. /[place] DICTATED BY: LUDWIN PALACIOS MD DATE: 07/16/251657 ELECTRONICALLY SIGNED BY: LUDWIN PALACIOS MD DATE: 07/16/251657 [place] [address] [place] [id number] IMAGING REPORT Addendum PATIENT: JACLYN CHATMAN MR#: [id number] : 1970 SEX: F AGE: 55 LOCATION: [facility] ORDER 48 STATUS: REG REPORT#: [id number] SERVICE 47 REASON: stroke, L sided numbness ORDERING PHYSICIAN: SHANNAN SANDOVAL DO PROCEDURE: HEAD WO - CT HEAD/BRAIN W/O CONTRAST ADDENDUM REPORT ADDENDUM: Results were shared by telephone at 2:25pm on 07-16-[address] Shannan Sandoval. /[place] EXAM: CT Head Without IV contrast. CLINICAL HISTORY: stroke, L sided numbness TECHNIQUE: Axial computed tomography images of the head/brain without intravenous contrast. COMPARISON: None provided. FINDINGS: BRAIN: Age-related cerebral atrophy. No evidence of acute haemorrhage. No mass lesion. No CT evidence for acute territorial infarct. No midline shift or extra-axial collections. VENTRICLES: No hydrocephalus. ORBITS: The orbits are unremarkable. SINUSES AND MASTOIDS: Mild left-sided mastoiditis. The paranasal sinuses and right mastoid air cells are clear. BONES: No fracture. SOFT TISSUES: Unremarkable. IMPRESSION: 1. No acute intracranial findings. 2. Mild left-sided mastoiditis. /[place] DICTATED BY: LUDWIN PALACIOS MD DATE: 07/16/251428 ELECTRONICALLY SIGNED BY: DATE: EXAM: CT Head Without IV contrast. CLINICAL HISTORY: stroke, L sided numbness TECHNIQUE: Axial computed tomography images of the head/brain without intravenous contrast. COMPARISON: None provided. FINDINGS: BRAIN: Age-related cerebral atrophy. No evidence of acute haemorrhage. No mass lesion. No CT evidence for acute territorial infarct. No midline shift or extra-axial collections. VENTRICLES: No hydrocephalus. ORBITS: The orbits are unremarkable. SINUSES AND MASTOIDS: Mild left-sided mastoiditis. The paranasal sinuses and right mastoid air cells are clear. BONES: No fracture. SOFT TISSUES: Unremarkable. IMPRESSION: 1. No acute intracranial findings. 2. Mild left-sided mastoiditis. /[place] DICTATED BY: LUDWIN PALACIOS MD DATE: 07/16/251416 ELECTRONICALLY SIGNED BY: LUDWIN PALACIOS MD DATE: 07/16/251416 [place] [id number] IMAGING REPORT Signed PATIENT: JACLYN CHATMAN MR#: [id number] : 1970 SEX: F AGE: 55 LOCATION: [facility] ORDER 48 STATUS: [facility] REPORT#: [id number] SERVICE 47 REASON: stroke ORDERING PHYSICIAN: SHANNAN SANDOVAL DO PROCEDURE: CXR1VW - CHEST 1VW EXAM: CR Chest, 1 View. CLINICAL HISTORY: stroke COMPARISON: None provided. FINDINGS: LUNGS: The lungs show no infiltrate or other acute finding. PLEURAL SPACES: No evidence of pleural effusion or pneumothorax. MEDIASTINUM: Cardiac size and mediastinal contours within normal limits. BONES: No aggressive appearing osseous lesion seen. IMPRESSION: No acute cardiopulmonary pathology is evident. /[place] DICTATED BY: JOAQUÍN MULLEN Jr., MD DATE: 07/16/251454 ELECTRONICALLY SIGNED BY: JOAQUÍN MULLEN Jr., MD DATE: 07/16/251454 PLAN Avoid excessive rapid decreasing blood pressure 2 midnights the risk of cerebral hypoperfusion Follow chest x-ray TSH WNL UA shows protein of 20, ketones of five, urobilinogen six, white count 2 to five, hyaline casts 2-5. UDS negative CTA head and neck WNL CT head without contrast shows left mastoiditis 2D echo pending Start lisinopril 10 mg daily Hydralazine PRN Enalapril PRN Holding off on beta chioma due to episodes of bradycardia in the 50s Renal ultrasound to rule out renal artery stenosis Arrange outpatient pulmonology referral for sleep study, PFT and follow-up sobeida irving upon discharge NEURO: Minimize central acting medications as possible. Fall Precautions. Well lighted room through the day and minimize interruptions through the night to prevent acute delirium. PULMONARY: Supplemental 02 as needed Titrate Fio2 to keep Spo2 > or = 90% DuoNebs and CPT as needed IS hourly while awake for pulmonary hygiene Out of bed to chair as tolerated ABG respiratory failure suspected CARDIOVASCULAR: Follow hemodynamics. Titrate vasopressor to keep MAP >65 or systolic blood pressure >95mmHg LINES: PIV GI & NUTRITION: Continue nutritional support Aspirations precautions Prokinetic agents and laxatives as needed Heart healthy Low-sodium KIDNEYS & ELECTROLYTES: Strict monitoring of intake and output Daily weights Avoid nephrotoxic agents Monitor electrolytes and replace as needed Goal urine output of 30mL/hr or 0.5mL/kg/hr ENDOCRINE: Maintain blood glucose between 100-180 at all times. Insulin sliding scale for blood glucose management TSH within normal limits A1c 6.1 INFECTIOUS DISEASE: Trend temperature. Aguilera-culture if febrile. Micro: [ ] Antibiotics: HEMATOLOGY & COAGULATION: Monitor H&H. Keep Hgb > 7 Transfuse 1 unit of PRBC for Hgb < 7 Transfuse 1 pack of platelets of platelets < 20, 000 Watch for any signs and symptoms of bleeding SKIN: Pressure ulcer prevention per facility protocol Rehab: PT/OT Prophylaxis: GI: [ Famotidine] DVT: [SCDs ] Code Status: Full Resuscitation Disposition: [PCCU Other: Total patient care time exceeds 35 minutes excluding all procedures. Case was discussed and seen with my supervising physician. The above plan was formulated and agreed upon. ATTESTATION BY PHYSICIAN I attest that I reviewed and discussed the case with the Physician Mobility Manager as well as agree with the Physician Mobility Manager's findings, plans of care, and documentation above. Seb Davenport MD, [facility] Jul 17, 2025 09:12
[2025-07-17] MEDS: LISINOPRIL 10 MG TABLET PO ONE ×2 (10:10→21:52)
--- NOTE | 2025-07-17 10:27 | NUR ---
DCP: Home SW met with pt and her Bossman [address] [id number]. Couple own heir home, reported no issues with affording home. Pt stated she was very active and independent, does not work. Pt able to do self care, home management, laundry and cooking for self and family. Uses so provider or HH services. Tank Ramos is her PCP and uses [facility] for her rx needs. DCP is home Addendum: 07/17/25 at 1035 by VERONICA MEADE Amended: Links added.
--- NOTE | 2025-07-17 12:00 | NUR ---
BEDSIDE SWALLOW EVAL COMPLETED. No s/s of aspiration. RECOMMEND: regular solids, thin liquids and pills whole with liquids as tolerated. SWEATER OPERATOR reviewed results and recommendations with patient and nurse Osiris. SWEATER OPERATOR educated patient on risks and consequences of aspiration. Speech therapy not warranted at this time. All questions answered. Addendum: 07/17/[address] JEAN CLAUDE DAVIS Amended: Links added.
--- NOTE | 2025-07-17 12:05 | NUR ---
COGNITIVE-LINGUISTIC EVALUATION COMPLETED. WITHIN FUNCTIONAL LIMITS. EVALUATION: Pt AAOX4. SPEECH, LANGUAGE, AND COGNITIVE LINGUISTICS SKILLS ARE WITHIN FUNCTIONAL LIMITS. Pt REQUESTS WANTS AND NEEDS INDEPENDENTLY WITH CLEAR SPEECH INTELLIGIBILITY. Pt COMMUNICATING AT CONVERSATIONAL LEVEL WITH NO DEFICITS IDENTIFIED AT THIS TIME. Pt COMPLETED COGNITIVE-LINGUISTIC EVALUATION WITH CORRECT AND TIMELY ANSWERS. SPEECH THERAPY NOT WARRANTED. ALL QUESTIONS ANSWERED AT THIS TIME. RADIATION ONCOLOGY MANAGER REVIEWED RESULTS AND RECOMMENDATIONS WITH PATIENT AND NURSE GENNY. Addendum: 07/17/[address] JEAN CLAUDE DAVIS Amended: Links added.
--- NOTE | 2025-07-17 12:35 | HMCIMG ---
EXAM: MR Brain Without IV contrast. CLINICAL HISTORY: R/O STROKE TECHNIQUE: Multisequence, multiplanar magnetic resonance images acquired of the brain. CONTRAST: None. COMPARISON: CT head dated 16 July 2025. FINDINGS: BRAIN: Multiple punctate T2/FLAIR hyperintensities are present along the subcortical white matter of the bilateral fronto-parietal lobe, representing small vessel ischemic changes. There is no restricted diffusion to indicate acute infarction. There is no intracranial mass or hemorrhage. There is no midline shift or extra-axial fluid collection. There is no cerebellar tonsillar ectopia. There is no abnormal enhancement. The central arterial and venous flow voids are patent. VENTRICLES: There is no hydrocephalus. ORBITS: The orbits are normal. SINUSES AND MASTOIDS: The sinuses and mastoid air cells are clear. BONES: There is no acute fracture or aggressively appearing osseous lesion. IMPRESSION: 1. No acute intracranial findings. 2. Chronic small vessel ischemic changes in bilateral fronto-parietal subcortical white matter. /[place]
--- NOTE | 2025-07-17 12:40 | PN ---
[facility] PROGRESS NOTE Date of Service: Jul 17, 2025 Time of Service: 12:40 SUBJECTIVE: H and P: This is a 55-year-old female with past medical history of gastric bypass surgery, gastric who presented to the hospital secondary to paresthesias on the left upper and lower extremity associated with heaviness, headache since yesterday. She was able to ambulate and denied any dysphagia, slurred speech, word-finding difficulty. She denied any upper extremity and lower extremity weakness, changes in her appetite, nausea, vomiting, abdominal pain, shortness of breath, chest pain. She does state she had an episode of abdominal pain yesterday which resolved without intervention. She does take multivitamins at home but denies any previous history of hypertension. She currently does not take any antihypertensives at home. She did complain of left facial paresthesias but denied any vision changes, swallowing difficulties. Her symptoms improved after she came to the hospital. Labs in the ED were notable for white count of 9.1, hemoglobin was 15.5, MCV was 99.1, platelet count was 201 K, sodium was 144, potassium was 3.8, creatinine was 0.6, troponin was negative x1, LDL cholesterol was 96. Patient underwent a chest x-ray which showed no acute abnormality. CT head showed no intracranial findings and mild left-sided mastoiditis, head and neck CT angiogram showed no acute significant stenosis. Tele neurology was consulted in the ED and patient was noted to have NIH stroke scale of one. She was deemed not to be a candidate for tPA. 07/17/2025 Patient is seen and examined at the bedside. Vitals blood pressure ranging in 150s to 170s/80s to 90s, Telemetry showed sinus rhythm. She reported a resolved episode of facial numbness last night. She currently has tension type headaches without eye pain, tearing or photophobia. Her numbness and tingling sensations in the left upper and lower extremities have resolved. She reports occasional left upper extremity numbness and tingling over the past few years. She denies fever, chills, neck pain, nausea, vomiting, chest pain, palpitations, difficulty in breathing, back pain, weakness in upper and lower extremities. Labs CBC, BMP unremarkable,Procalcitonin less than 0.05, TSH 1.19, HbA1c 6.1, t roponins 11, LDL 96, ESR 16, CRP 0.51. MRI brain revealed no acute intracranial findings and Chronic small vessel ischemic changes in bilateral fronto-parietal subcortical white matter. 2D echo showed LVEF of >70% and no valvular abnormalities. REVIEW OF SYSTEMS CONSTITUTIONAL: Denies fevers, chills, or night sweats. No unintentional weight loss reported. NEUROLOGICAL: Denies headache, motor weakness, gait abnormalities, or tremors. Positive for intermittent paresthesias in the left upper and lower extremity ENT: No hearing loss, otalgia, otorrhea, rhinitis, rhinorrhea, hoarseness, or sore throat. CARDIOVASCULAR: Denies any exertional angina, dyspnea on exertion, orthopnea, paroxysmal nocturnal dyspnea, palpitations, life-threatening arrhythmias, claudication. PULMONARY: Denies any shortness of breath, cough, phlegm/sputum, hemoptysis, pleuritic chest pain. GASTROINTESTINAL: Denies any type of dysphagia to either liquids or solids. Denies nausea, vomiting, pyrosis, early satiety, abdominal pain, diarrhea, constipation, or changes in stool consistency or caliber. Denies coffee-ground emesis, hematemesis, hematochezia, or melanotic stools. GENITOURINARY: Denies frequency, urgency, nocturia, hematuria or incontinence (Storage/Irritative symptoms ENDOCRINOLOGIC: Denies polyuria, polydipsia, polyphagia or heat/cold intolerances. HEMATOLOGIC: Denies thrombophilia/previous clots, or coagulopathy/bleeding disorders. ONCOLOGIC: Denies personal history of malignancy. DERMATOLOGIC: Denies rashes or pruritus. PSYCHIATRIC: Denies any suicidal or homicidal ideation. Denies hallucinations. PHYSICAL EXAM GENERAL APPEARANCE: The patient is awake, alert, and oriented, in no acute cardiopulmonary distress. NEUROLOGICAL: Cranial nerves II-XII grossly intact. Motor is 5/5 in bilateral upper and lower extremities proximal to distal. No sensory deficits. HEENT: Face is symmetric. Pupils are equal and reactive. Extraocular movements are intact. NECK: Supple. No JVD. No thyromegaly. No submental, submandibular, pre- /postauricular, occipital or supraclavicular lymphadenopathy. CHEST: Normal chest expansion LUNGS: Absence of any rales, rhonchi or any wheezing. CARDIOVASCULAR: Regular. S1 and S2 normal. No appreciable rubs, murmurs or gallops. ABDOMEN: Soft, nontender, and nondistended. There is no rebound, voluntary guarding, or rigidity. : Deferred. No Wagner. EXTREMITIES: Non-edematous and not cyanotic. No clubbing. Good capillary ref ill. SKIN: No skin breakdown. Vital Signs (last 8hr) Date Time Temp Pulse Resp B/P (MAP) Pulse Ox O2 Delivery O2 Flow Rate FiO2 07/17/25 08:00 96 Room Air* 0 21 07/17/25 08:00 98.1 94 22 176/93 96 Room Air 07/17/25 07:00 62 13 186/90 96 Room Air 07/17/25 05:55 62 14 173/91 97 07/17/25 05:40 58 15 158/88 96 07/17/25 05:25 64 19 163/90 97 07/17/25 05:10 58 20 164/91 96 07/17/25 04:55 64 19 170/90 96 LABS: Laboratory: Test 07/17/25 07:25 07/17/25 03:22 07/16/25 20:20 07/16/25 12:53 Range/Units Urine Color YELLOW YELLOW Urine Appearance CLEAR CLEAR Urine pH 6.5 5.0-8.0 Urine Specific [place] 1.031 1.001-1.031 Urine Protein 20 H NEGATIVE mg/dL Urine Glucose (UA) NEGATIVE NEGATIVE mg/dL Urine Ketones 5 H NEGATIVE mg/dL Urine Occult Blood NEGATIVE NEGATIVE Urine Nitrate NEGATIVE NEGATIVE Urine Bilirubin NEGATIVE NEGATIVE mg/dL Urine Urobilinogen 6 H 0.2-1.0 mg/dL Urine Leukocyte Esterase NEGATIVE NEGATIVE Tarun/uL Urine RBC 0-1 0-1 /HPF Urine WBC 2-5 H 0-1 /HPF Urine Squamous Epithelial Cells FEW 0-2 /HPF Urine Bacteria None None Seen /HPF Urine Hyaline Casts 2-5 H 0-1 /LPF /LPF Urine Opiates Screen NEGATIVE NEGATIVE Urine Barbiturates Screen NEGATIVE NEGATIVE Urine Phencyclidine Screen NEGATIVE NEGATIVE Urine Amphetamines Screen NEGATIVE NEGATIVE Urine Benzodiazepines Screen NEGATIVE NEGATIVE Urine Cocaine Screen NEGATIVE NEGATIVE Urine Marijuana (THC) Screen NEGATIVE NEGATIVE White Blood Count 8.5 4.8-10.8 K/uL Red Blood Count 4.54 4.00-5.50 MIL/uL Hemoglobin 15.2 12.0-16.0 g/dL Hematocrit 44.0 36-48 % Mean Corpuscular Volume 96.9 79-99 fL Mean Corpuscular Hemoglobin 33.5 H 27.0-33.0 pg Mean Corpuscular Hemoglobin Concent 34.5 32.0-36.0 g/dL Red Cell Distribution Width 12.0 11.0-15.5 % Platelet Count 207 130-400 K/uL Mean Platelet Volume 11.1 H 7.5-10.5 fL Immature Granulocyte % (Auto) 0.2 0-1 % Neutrophils (%) (Auto) 53.4 40.0-77.0 % Lymphocytes (%) (Auto) 36.2 21.0-51.0 % Monocytes (%) (Auto) 8.1 3.0-13.0 % Eosinophils (%) (Auto) 1.6 0.0-8.0 % Basophils (%) (Auto) 0.5 0.0-5.0 % Neutrophils # (Auto) 4.6 1.8-7.7 K/uL Lymphocytes # (Auto) 3.1 1.0-4.8 K/uL Monocytes # (Auto) 0.7 0.1-1.0 K/uL Eosinophils # (Auto) 0.14 0.00-0.70 K/uL Basophils # (Auto) 0.04 0.00-0.20 K/uL Absolute Immature Granulocyte (auto 0.02 0-1 K/uL Nucleated Red Blood Cells 0.0 0.0-0.19 % Erythrocyte Sedimentation Rate 16 0-30 MM/HR Sodium Level 144 136-145 mmol/L Potassium Level 4.8 3.5-5.1 mmol/L Chloride Level 107 101-111 mmol/L Carbon Dioxide Level 28 21-32 mmol/L Blood Urea Nitrogen 6 L 7-18 mg/dL Creatinine 0.6 0.5-1.0 mg/dL Glomerular Filtration Rate Calc 106 >90 mL/min Random Glucose 125 H 70-105 mg/dL Total Calcium 9.3 8.5-10.1 mg/dL Magnesium Level 2.30 1.80-2.40 mg/dL C-Reactive Protein, Quantitative < 0.50 L 0.5-3.0 mg/L Vitamin B12 Level 1040 H 193-986 pg/mL Whole Blood Glucose 146 H 70-110 MG/DL Prothrombin Time 10.3 9.6-11.6 SEC Prothromb Time International Ratio 0.97 0.85-1.15 Activated Partial Thromboplast Time 24.4 L 26.3-35.5 SEC Hemoglobin A1c 6.1 H 4.0-6.0 % Estimated Average Glucose (eAG) 128 H 70-126 mg/dL Total Creatine Kinase 83 21-232 U/L Troponin I High Sensitivity 11 4-50 ng/L LDL Cholesterol 96 0-99 mg/dL Procalcitonin < 0.05 L 0.05-0.5 ng/mL Thyroid Stimulating Hormone (TSH) 1.19 0.36-3.74 uIU/mL Current Medications Medications (Trade) Dose Ordered Sig/Sanjiv Route PRN Reason Start Time Stop Time Status Last Admin Dose Admin Acetaminophen (TYLenol 500MG TAB) 500 mg Q6H PRN PO MILD PAIN (1-3) 07/16/25 16:30 08/15/25 16:29 Alprazolam (XANax 0.5MG) 0.5 mg ONCE PRN PO OTHER [SEE ORDER COMMENTS] 07/17/25 10:00 Aspirin (Aspirin 81mg Ec Tab) 81 mg DAILY PO 07/17/25 09:00 08/16/25 08:59 07/17/25 08:08 81 MG Famotidine (Pepcid 20mg Vial) 20 mg BID IV 07/16/25 21:00 08/15/25 20:59 07/17/25 08:08 20 MG Hydralazine HCl (APRESOLine 20MG INJ) 10 mg Q6H PRN IV ADMINISTER FOR BP > 220/120 07/16/25 16:30 08/15/25 16:29 Lisinopril (Prinivil 10mg) 10 mg DAILY PO 07/18/25 09:00 08/17/25 08:59 Ondansetron HCl (zoFRAN 4MG INJ) 4 mg Q6H PRN IVP NAUSEA/VOMITING 07/16/25 16:30 08/15/25 16:29 DIAGNOSTICS / RADIOLOGY: PATIENT: JACLYN CHATMAN MR#: [id number] : 1970 SEX: F AGE: 55 LOCATION: 2CH ORDER 1000 STATUS: ADM IN REPORT#: [id number] SERVICE 7 REASON: R/O STROKE ORDERING PHYSICIAN: CHINO DOE PROCEDURE: BRAIN WO - MR BRAIN WO CON EXAM: MR Brain Without IV contrast. CLINICAL HISTORY: R/O STROKE TECHNIQUE: Multisequence, multiplanar magnetic resonance images acquired of the brain. CONTRAST: None. COMPARISON: CT head dated 16 July 2025. FINDINGS: BRAIN: Multiple punctate T2/FLAIR hyperintensities are present along the subcortical white matter of the bilateral fronto-parietal lobe, representing small vessel ischemic changes. There is no restricted diffusion to indicate acute infarction. There is no intracranial mass or hemorrhage. There is no midline shift or extra-axial fluid collection. There is no cerebellar tonsillar ectopia. There is no abnormal enhancement. The central arterial and venous flow voids are patent. VENTRICLES: There is no hydrocephalus. ORBITS: The orbits are normal. SINUSES AND MASTOIDS: The sinuses and mastoid air cells are clear. BONES: There is no acute fracture or aggressively appearing osseous lesion. IMPRESSION: 1. No acute intracranial findings. 2. Chronic small vessel ischemic changes in bilateral fronto-parietal subcortical white matter. /[place] DICTATED BY: JOAQUÍN MULLEN Jr., MD DATE: 07/17/251333 ELECTRONICALLY SIGNED BY: JOAQUÍN MULLEN Jr., MD DATE: 07/17/251333 PATIENT: JACLYN CHATMAN MR#: [id number] : 1970 SEX: F AGE: 55 LOCATION: 2CH ORDER 25 STATUS: ADM IN REPORT#: [id number] SERVICE 19 REASON: possible stroke, echo with bubble study ORDERING PHYSICIAN: RULA PAYTON MD PROCEDURE: ECHO CMP - ECHO 2-D COMPLETE APPROVED REPORT EXAM: Two-dimensional and M-mode echocardiogram with Doppler and color Doppler. INDICATION ICD: Rule out stroke Contrast Details Indication: Rule out PFO Agent/Amount Used: Agitated Saline 2D Dimensions RVDd 2.8 cm LVEF(%) 73.4 (>50%) LVED Vol(simp.) 63.0 mL IVSd 1.3 (0.7-1.1cm) FS(%) 42 % LVES Vol(simp.) 17.0 mL LVDd 4.5 (3.8-5.6cm) LA (2D) 4.4 (1.6-4.0cm) LVEF(%, simp.) 72 % PWd 1.3 (0.7-1.1cm) Ao Root(2D) 2.7 (2.0-3.7cm) LA ESV INDEX (BP) 16.68 mL/m2 IVSs 1.5 cm LVOT diam 2.0 (1.8-2.4cm) LVDs 2.6 (2.5-4.0cm) PWs 1.8 cm Deformation Strain Apical 4 -18.7 % Apical 2 -18.5 % Apical 3 -19.3 % Global Strain -18.8 % M-Mode Dimensions EPSS 0.6 cm LA (MM) 3.7 (1.6-4.0cm) Ao Root(MM) 2.6 (2.0-3.7cm) Aortic Valve AoV Vmax 2.4 m/s Ao Peak GR 23.4 mmHg LVOT Vmax 1.5 m/s AoV VTI 0.3 m Ao Mean GR 13.2 mmHg LVOT VTI 0.22 m DIANE (VMAX) 1.89 cm2 DIANE (VTI) 1.9 cm2 Mitral Valve MV E Vmax 70.8 cm/s DECEL Time 131 ms MV A Vmax 111.4 cm/s P 1/2 T 23 ms E/A ratio 0.6 MVA (PHT) 9.7 cm2 TDI E/E' Medial 11.5 E/E' Lateral 9.8 Medial E' Peak V 6.16 cm/s Lateral E' Peak V 7.22 cm/s Pulmonary Valve PV Vmax 1.7 m/s PV VTI 0.25 m PV Mean GR 6.2 mmHg PV Peak GR 11.3 mmHg Tricuspid Valve TR Vmax 1.3 m/s RAP (EST) 3 mmHg RVSP 10.4 mmHg TR Peak GR 7.4 mmHg Left Ventricle The left ventricle is normal size. GLS -19.0% There is normal left ventricular wall thickness. LVEF is >70%. The left ventricular diastolic function is normal. Right Ventricle The right ventricle is normal size. The right ventricular systolic function is normal. Atria The left atrium size is normal. Negative bubble study. The right atrium size is normal. Aortic Valve The aortic valve is normal in structure. No aortic regurgitation is present. There is no aortic valvular stenosis. Mitral Valve The mitral valve is normal in structure. There is no evidence of significant mitral regurgitation. Tricuspid Valve The tricuspid valve is normal in structure. There is no tricuspid valve regurgitation noted. Estimated pulmonary pressures are normal. Pulmonic Valve The pulmonary valve is normal in structure. There is no pulmonic valvular regurgitation. Great Vessels The aortic root is normal in size. The IVC is normal in size and collapses >50% with inspiration. Pericardium There is no pericardial effusion. Other Information Quality : Technically difficult study due to body habitus Rhythm : sinus tachycardia Conclusion LVEF is >70%. The left ventricular diastolic function is normal. 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 [07/16], POA Tension type headache, POA Chronic small vessel ischemic changes on MRI HTN PLAN: Hypertensive emergency POA Currently blood pressure ranging in 150s to 170s/80s to 90s Continue IV antihypertensives PRN, as directed Start lisinopril 10 mg as per critical Care consult recommendations Monitor vitals every 4 hours Left-sided upper and lower extremity paresthesia Initial Differential: Acute stroke versus TIA versus symptoms secondary to hypertensive emergency CT head showed no acute abnormalities and mild left mastoiditis, CTA head and neck revealed no acute abnormalities, MRI brain revealed no acute abnormalities and showed chronic small-vessel ischemic changes in bilateral fronto-parietal subcortical white matter Acute stroke ruled out Neurology is consulted and we will follow their recommendations Continue neuro checks every 4 hours We will start Aspirin 81mg daily We will start Atorvastatin med PT/ST/OT We will order B12, folate, thiamine levels and consult nutrition given her history of bariatric surgery Headaches, POA Not associated with tearing of eyes, eye pain, photosensitivity, facial/temporal tenderness Likely stress related or secondary to fatigue Continue acetaminophen p.r.n. 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 I reviewed the documentation, medical decision making, and treatment plan as noted by the resident provider above. I agree with the findings and plan of care. ROSANNE LAURENT MD, PRIYANKA MD Jul 17, 2025 12:40
[2025-07-17] MEDS ORDERED: ENALAPRILAT DIHYDRATE 1.25 MG/ML 2ML VIAL IVP PRN (15:30)
--- NOTE | 2025-07-17 16:21 | HMCSR ---
APPROVED REPORT EXAM: Two-dimensional and M-mode echocardiogram with Doppler and color Doppler. INDICATION ICD: Rule out stroke Contrast Details Indication: Rule out PFO Agent/Amount Used: Agitated Saline 2D Dimensions RVDd2.8 cmLVEF(%)73.4 (>50%)LVED Vol(simp.)63.0 mL IVSd1.3 (0.7-1.1cm)FS(%)42 %LVES Vol(simp.)17.0 mL LVDd4.5 (3.8-5.6cm)LA (2D)4.4 (1.6-4.0cm)LVEF(%, simp.)72 % PWd1.3 (0.7-1.1cm)Ao Root(2D)2.7 (2.0-3.7cm)LA ESV INDEX (BP)16.68 mL/m2 IVSs1.5 cmLVOT diam2.0 (1.8-2.4cm) LVDs2.6 (2.5-4.0cm) PWs1.8 cm Deformation Strain Apical 4-18.7 % Apical 2-18.5 % Apical 3-19.3 % Global Strain-18.8 % M-Mode Dimensions EPSS0.6 cm LA (MM)3.7 (1.6-4.0cm) Ao Root(MM)2.6 (2.0-3.7cm) Aortic Valve AoV Vmax2.4 m/Elder Peak GR23.4 mmHgLVOT Vmax1.5 m/s AoV VTI0.3 mAo Mean GR13.2 mmHgLVOT VTI0.22 m DIANE (VMAX)1.89 cm2AVA (VTI) 1.9 cm2 Mitral Valve MV E Vmax70.8 cm/sDECEL Dglj583 ms MV A Jksl410.4 cm/sP 1/2 T23 ms E/A ratio0.6MVA (PHT)9.7 cm2 TDI E/E' Rwdaqh38.5E/E' Lateral9.8 Medial E' Peak V6.16 cm/sLateral E' Peak V7.22 cm/s Pulmonary Valve PV Vmax1.7 m/sPV VTI0.25 mPV Mean GR6.2 mmHg PV Peak GR11.3 mmHg Tricuspid Valve TR Vmax1.3 m/sRAP (EST) 3 gmTyVPHM58.4 mmHg TR Peak GR7.4 mmHg Left Ventricle The left ventricle is normal size. GLS -19.0% There is normal left ventricular wall thickness. LVEF i s >70%. The left ventricular diastolic function is normal. Right Ventricle The right ventricle is normal size. The right ventricular systolic function is normal. Atria The left atrium size is normal. Negative bubble study. The right atrium size is normal. Aortic Valve The aortic valve is normal in structure. No aortic regurgitation is present. There is no aortic valvu lar stenosis. Mitral Valve The mitral valve is normal in structure. There is no evidence of significant mitral regurgitation. Tricuspid Valve The tricuspid valve is normal in structure. There is no tricuspid valve regurgitation noted. Estimate d pulmonary pressures are normal. Pulmonic Valve The pulmonary valve is normal in structure. There is no pulmonic valvular regurgitation. Great Vessels The aortic root is normal in size. The IVC is normal in size and collapses >50% with inspiration. Pericardium There is no pericardial effusion. Other Information Quality : Technically difficult study due to body habitus Rhythm : sinus tachycardia Conclusion LVEF is >70%. The left ventricular diastolic function is normal. No significant valvular abnormalities Agitated saline study is negative
--- NOTE | 2025-07-17 19:30 | NUR ---
NIKIA DUPREE AT BEDSIDE DISCUSSING MRI AND CT'S WITH PATIENT AND . PER MD, PATIENT WITH NO STROKE. STATES THAT HER DX IS HTN EMERGENCY AND THAT HER SYMPTOMS GET BETTER IF BP IS MORE CONTROLLED. PATIENT CURRENTLY WITH BP SYSTOLIC 170'S. DR MONTEJO IS RECOMMENDING SYSTOLIC TO BE <130. STATES TO COORDINATE WITH HOSPITALIST FOR MEDICATION ADJUSTMENT.
--- NOTE | 2025-07-17 20:08 | NUR ---
DARIAN KEEN NP(HOSPITALIST) RN COORDINATED WITH LEONILA AND INFORMED OF DR MONTEJO'S REC. PER GARRY KEEN TO TREAT SYSTOLIC BP >160 WITH PRN MEDICATION UNTIL EVALUATED IN THE AM. OKAY TO CHANGE ORDER OF HYDRALAZINE PRN Q4HS AND CHANGE SYSTOLIC PARAMETER TO TREAT IF >160.
--- NOTE | 2025-07-17 20:24 | CONS ---
CONSULTATION NOTE Date of Service: Jul 17, 2025 Reason for Consultation: Evaluation of left-sided numbness Requesting Physician: Hospitalist HISTORY OF PRESENT ILLNESS: Ms. Ornelas is a 55-year-old right-handed woman with a history of hypertension, obesity, and gastric bypass who presented with neurological symptoms and very high blood pressure yesterday. Yesterday morning at 7 a.m., the patient got up, had breakfast, and helped her daughter with a school project. She then developed numbness that started in both arms, then moved to her left arm and worsened. The numbness spread across her chest, causing shortness of breath, and then moved up to her jawline. She experienced numbness rather than weakness. Following these symptoms, she developed a mild headache that she rated as 6 out of 10 in severity. She denied light or sound sensitivity, nausea, or vomiting. Her blood pressure was found to be 229/117. The patient's headache resolved this afternoon when her blood pressure was controlled, but she continues to experience heaviness in her arm. She is currently on enalapril and lisinopril for blood pressure management, though her blood pressure remains elevated around 170 despite these medications. Medical History - Hypertension - Obesity - Gastric bypass Surgical History - Gastric bypass surgery Medications and Supplements - Enalapril - Lisinopril Social History - Living Situation: Lives with daughter REVIEW OF SYSTEMS HEENT: Negative for light sensitivity, sound sensitivity. Respiratory: Positive for shortness of breath. Gastrointestinal: Negative for nausea, vomiting. Neurological: Positive for headache (mild, rated 6/10), numbness in both arms initially then left arm, numbness across chest, numbness in jawline. Negative for weakness. PAST MEDICAL HISTORY: As above PAST SURGICAL HISTORY: As above PAST SOCIAL HISTORY: No alcohol recreational drug abuse FAMILY HISTORY: None Coded Allergies: amoxicillin (Unverified Allergy, Intermediate, HIVES,ITCHING, 02/09/12) shellfish derived (Unverified Allergy, Intermediate, HIVES/ITCHING, 07/17/25) sulfamethoxazole (Unverified Allergy, Intermediate, HIVES,ITCHING, 02/09/12) trimethoprim (Unverified Allergy, Intermediate, HIVES,ITCHING, 02/09/12) PHYSICAL EXAM Mental status: The patient is alert, attentive, and oriented. Speech is clear and fluent with good repetition, comprehension, and naming. Pt recalls 3/3 objects at 5 minutes. Cranial nerves: CN II: Visual tejada are full to confrontation. CN III, IV, : At primary gaze, there is no eye deviation. CN V: Facial sensation is intact to pinprick in all 3 divisions bilaterally. Corneal responses are intact. CN VII: Face is symmetric with normal eye closure and smile. CN VIII: Hearing is normal to rubbing fingers CN IX, X: Palate elevates symmetrically. Phonation is normal. CN XI: Head turning and shoulder shrug are intact CN XII: Tongue is midline with normal movements and no atrophy. Motor: There is no pronator drift of out-stretched arms. Muscle bulk and tone are normal. Strength is full bilaterally. Reflexes: Reflexes are 2+ and symmetric at the biceps, triceps, knees, and ankles. Plantar responses are flexor. Sensory: Light touch, pinprick, position sense, and vibration sense are intact in fingers and toes. Coordination: Rapid alternating movements and fine finger movements are intact. There is no dysmetria on [id number] and [id number]. There are no abnormal or extraneous movements. Romberg is absent. Gait/Stance: Not evaluated Vital Sign (Last 24 Hours) 07/17/25 07/17/25 08:00 16:00 Temp 97.9 Pulse 78 Resp 13 B/P (MAP) 177/65 Pulse Ox 97 O2 Delivery Room Air O2 Flow Rate 0 FiO2 21 LABS: Laboratory: Test 07/17/25 07:25 07/17/25 03:22 07/16/25 20:20 07/16/25 12:53 Range/Units Urine Color YELLOW YELLOW Urine Appearance CLEAR CLEAR Urine pH 6.5 5.0-8.0 Urine Specific [place] 1.031 1.001-1.031 Urine Protein 20 H NEGATIVE mg/dL Urine Glucose (UA) NEGATIVE NEGATIVE mg/dL Urine Ketones 5 H NEGATIVE mg/dL Urine Occult Blood NEGATIVE NEGATIVE Urine Nitrate NEGATIVE NEGATIVE Urine Bilirubin NEGATIVE NEGATIVE mg/dL Urine Urobilinogen 6 H 0.2-1.0 mg/dL Urine Leukocyte Esterase NEGATIVE NEGATIVE Tarun/uL Urine RBC 0-1 0-1 /HPF Urine WBC 2-5 H 0-1 /HPF Urine Squamous Epithelial Cells FEW 0-2 /HPF Urine Bacteria None None Seen /HPF Urine Hyaline Casts 2-5 H 0-1 /LPF /LPF Urine Opiates Screen NEGATIVE NEGATIVE Urine Barbiturates Screen NEGATIVE NEGATIVE Urine Phencyclidine Screen NEGATIVE NEGATIVE Urine Amphetamines Screen NEGATIVE NEGATIVE Urine Benzodiazepines Screen NEGATIVE NEGATIVE Urine Cocaine Screen NEGATIVE NEGATIVE Urine Marijuana (THC) Screen NEGATIVE NEGATIVE White Blood Count 8.5 4.8-10.8 K/uL Red Blood Count 4.54 4.00-5.50 MIL/uL Hemoglobin 15.2 12.0-16.0 g/dL Hematocrit 44.0 36-48 % Mean Corpuscular Volume 96.9 79-99 fL Mean Corpuscular Hemoglobin 33.5 H 27.0-33.0 pg Mean Corpuscular Hemoglobin Concent 34.5 32.0-36.0 g/dL Red Cell Distribution Width 12.0 11.0-15.5 % Platelet Count 207 130-400 K/uL Mean Platelet Volume 11.1 H 7.5-10.5 fL Immature Granulocyte % (Auto) 0.2 0-1 % Neutrophils (%) (Auto) 53.4 40.0-77.0 % Lymphocytes (%) (Auto) 36.2 21.0-51.0 % Monocytes (%) (Auto) 8.1 3.0-13.0 % Eosinophils (%) (Auto) 1.6 0.0-8.0 % Basophils (%) (Auto) 0.5 0.0-5.0 % Neutrophils # (Auto) 4.6 1.8-7.7 K/uL Lymphocytes # (Auto) 3.1 1.0-4.8 K/uL Monocytes # (Auto) 0.7 0.1-1.0 K/uL Eosinophils # (Auto) 0.14 0.00-0.70 K/uL Basophils # (Auto) 0.04 0.00-0.20 K/uL Absolute Immature Granulocyte (auto 0.02 0-1 K/uL Nucleated Red Blood Cells 0.0 0.0-0.19 % Erythrocyte Sedimentation Rate 16 0-30 MM/HR Sodium Level 144 136-145 mmol/L Potassium Level 4.8 3.5-5.1 mmol/L Chloride Level 107 101-111 mmol/L Carbon Dioxide Level 28 21-32 mmol/L Blood Urea Nitrogen 6 L 7-18 mg/dL Creatinine 0.6 0.5-1.0 mg/dL Glomerular Filtration Rate Calc 106 >90 mL/min Random Glucose 125 H 70-105 mg/dL Total Calcium 9.3 8.5-10.1 mg/dL Magnesium Level 2.30 1.80-2.40 mg/dL C-Reactive Protein, Quantitative < 0.50 L 0.5-3.0 mg/L Vitamin B12 Level 1040 H 193-986 pg/mL Whole Blood Glucose 146 H 70-110 MG/DL Prothrombin Time 10.3 9.6-11.6 SEC Prothromb Time International Ratio 0.97 0.85-1.15 Activated Partial Thromboplast Time 24.4 L 26.3-35.5 SEC Hemoglobin A1c 6.1 H 4.0-6.0 % Estimated Average Glucose (eAG) 128 H 70-126 mg/dL Total Creatine Kinase 83 21-232 U/L Troponin I High Sensitivity 11 4-50 ng/L LDL Cholesterol 96 0-99 mg/dL Procalcitonin < 0.05 L 0.05-0.5 ng/mL Thyroid Stimulating Hormone (TSH) 1.19 0.36-3.74 uIU/mL DIAGNOSTICS / RADIOLOGY: MRI of the brain without contrast: Negative for stroke ASSESSMENT / PLAN: Ms Ornelas is a 55-year-old female with a history of hypertension, obesity, and gastric bypass presenting with bilateral arm numbness progressing to chest and jaw involvement with shortness of breath and headache in the setting of severely elevated blood pressure. Hypertensive emergency Assessment: Patient presented with blood pressure of 229/117 accompanied by neurological symptoms including bilateral arm numbness that progressed to involve chest and jaw, along with shortness of breath and headache rated 6/10. Symptoms improved with blood pressure control, with headache resolving but arm heaviness persisting. MRI was negative for stroke or TIA, ruling out acute cerebrovascular events. The constellation of extremely elevated blood pressure with stroke-like symptoms that improved with blood pressure reduction is consistent with hypertensive emergency. White matter lesions noted on MRI are common in migraine patients but do not indicate acute pathology in this context. Plan: - Target blood pressure less than 130/80 - Continue enalapril and lisinopril - Consider hydralazine dose given current blood pressure around 170 Thank you for your consultation. I will sign off. MINNA ARMSTRONG MD Jul 17, 2025 20:24
--- NOTE | 2025-07-17 21:25 | NUR ---
DR KENZIE DUPREE DOING BEDSIDE ROUNDS WITH PATIENT. NOTIFED OF DR MONTEJO'S REC AND NEW ORDERS OF DARIAN KEEN NP. PER DR ESPINO, WANTS TO SLOWLY DECREASE SYSTOLIC BP TO 130'S BUT NOT OVER NIGHT. STATED TO CHANGE LISINOPRIL 10MG TO BID INSTEAD OF DAILY. STATED TO GIVE SECOND DOSE OF THE DAY, NOW. CTA OF HEART FOR TOMORROW.
--- NOTE | 2025-07-17 21:31 | PN ---
CARDIOLOGY Reason for consult: Left arm numbness HPI/story at presentation: This is a pleasant 55-year-old female with past medical history of lupus with complaints of atypical chest discomfort, left arm numbness, facial numbness Eskandar being worked up for possible CVA/TIA. Cardiology was consulted for further evaluation management Past medical history: See below Allergies, Meds See chart Review of systems Review of Systems Constitutional: Negative for chills and fever. HENT: Negative for ear discharge and ear pain. Eyes: Negative for photophobia and discharge. Respiratory: Negative for cough, sputum production and stridor. Cardiovascular: Negative for chest pain and palpitations. Gastrointestinal: Negative for diarrhea and vomiting. Genitourinary: Negative for frequency. Musculoskeletal: Negative for myalgias. Skin: Negative for rash. Neurological: Negative for focal weakness and seizures. Endo/Heme/Allergies: Negative for polydipsia. Psychiatric/Behavioral: Negative for hallucinations. Vitals see chart PHYSICAL EXAMINATION GENERAL: The patient is alert and oriented*3 HEENT: Nonicteric sclerae, non traumatic HEART: Regular rate and rhythm with no murmurs LUNGS: Clear to auscultation bilaterally ABDOMEN: No acute issues, non tender GENITAL, RECTAL: deferred SKIN: No rash NEUROLOGIC: NFND EXTREMITIES: No edema ASSESSMENT LEFT-SIDED NUMBNESS, WEAKNESS TIA/CVA being worked up, 07/16/2025 Echocardiogram, bubble study was negative for any abnormalities, MRI was also negative. PREVIOUS HISTORY OF GASTRIC BYPASS, OBESITY, SLEEP APNEA HYPERTENSION With urgency at presentation CORE MEASURES Pending OTHER MEDICAL PROBLEMS Reviewed PLAN 07/16/2005/28/2025 echocardiogram has been ordered to further evaluate for possible wall source of emboli. MRI is also pending to evaluate for CVA. Numbness has improved. Seen and examined 07/16/2025 around 9 PM. 07/17/2025 Neurological workup has been negative. Blood pressures are better. Will need to rule out cardiac etiology of jaw and left arm pain. Will get a CTA coronary tomorrow. Risk benefits addressed. MRI was negative. Seen and examined 07/17/2025 at around 8 PM. ATTESTATION I was involved substantially in the care of this patient Number and complexity of problems addressed: 1 acute illness with systemic features Amount and or complexity of data Review of prior external note(s) from each unique source: 2+ Ordering of each unique test : 0 Review of the result(s) of each unique test: 2+ Assessment requiring an independent historian(s): No Independent interpretation of test performed by another MD/QHCP/appropriate source (not separately reported) : No Discussion of management or test interpretation with external MD/QHCP/appropriate source (not separately reported) : No Risk status (cardiac, billing related): Moderate Vitals/Labs Vital Signs Date Time Temp Pulse Resp B/P (MAP) Pulse Ox O2 Delivery O2 Flow Rate FiO2 07/17/25 20:00 98 Room Air* 0 21 07/17/25 20:00 97.9 64 20 144/88 Laboratory Tests 07/17/25 03:22 Medications Current Medications Hydralazine HCl 10 mg ONCE ONCE IV Last administered on 07/16/25at 16:03; Start 07/16/25 at 14:30; Stop 07/16/25 at 14:31; Status DC Aspirin 325 mg ONCE ONCE PO Last administered on 07/16/25at 16:03; Start 07/16/25 at 14:30; Stop 07/16/25 at 14:31; Status DC Iohexol 75 ml STK-MED ONCE IV; Start 07/16/25 at 14:13; Stop 07/16/25 at 14:13; Status DC Iohexol 75 ml STK-MED ONCE IV; Start 07/16/25 at 14:17; Stop 07/16/25 at 14:17; Status DC Famotidine 20 mg BID IV Last administered on 07/17/25at 08:08; Start 07/16/25 at 21:00; Stop 08/15/25 at 20:59 Hydralazine HCl 10 mg Q6H PRN IV; Start 07/16/25 at 16:30; Stop 07/17/25 at 21:24; Status DC Acetaminophen 500 mg Q6H PRN PO; Start 07/16/25 at 16:30; Stop 08/15/25 at 16:29 Ondansetron HCl 4 mg Q6H PRN IVP; Start 07/16/25 at 16:30; Stop 08/15/25 at 16:29 Aspirin 81 mg DAILY PO Last administered on 07/17/25at 08:08; Start 07/17/25 at 09:00; Stop 08/16/25 at 08:59 Lisinopril 10 mg DAILY PO; Start 07/18/25 at 09:00; Stop 07/17/25 at 20:55; Status DC Alprazolam 0.5 mg ONCE PRN PO; Start 07/17/25 at 10:00 Lisinopril 10 mg ONCE ONCE PO Last administered on 07/17/25at 10:10; Start 07/17/25 at 10:00; Stop 07/17/25 at 10:01; Status DC Enalaprilat 1.25 mg Q6H PRN IVP; Start 07/17/25 at 15:30; Stop 08/16/25 at 15:29 Lisinopril 10 mg DAILY PO; Start 07/18/25 at 09:00; Stop 08/17/25 at 08:59 Hydralazine HCl 10 mg Q4H PRN IV; Start 07/18/25 at 00:00; Stop 08/15/25 at 16:29; Status CALIN SAAVEDRA MD Jul 17, 2025 21:30
[2025-07-18] VITALS (9 sets, daily range): BP systolic 140–169; BP diastolic 72–91; PULSE 59–71; RESP 15–18; TEMP 98–98.6; O2SAT 96–98
[2025-07-18 04:45] LABS: IMMATURE GRANULOCYTE ABSOLUTE 0.02 K/uL (0-1); NUCLEATED RED BLOOD CELLS 0.0 % (0.0-0.19); PLATELET COUNT (AUTO) 202 K/uL (130-400); RED BLOOD CELL COUNT(AUTO) 4.49 MIL/uL (4.00-5.50); RED CELL DISTRIBUTION WIDTH 12.1 % (11.0-15.5); WHITE BLOOD COUNT (AUTO) 8.3 K/uL (4.8-10.8)
[2025-07-18 04:56] LABS: CREATININE 0.6 mg/dL (0.5-1.0); GLOMERULAR FILTR. RATE CALC 106.0 mL/min (>90); GLUCOSE,RANDOM 129.0 mg/dL (70-105); SODIUM SERUM 142.0 mmol/L (136-145); UREA NITROGEN, BLOOD 10.0 mg/dL (7-18)
[2025-07-18 08:06] LABS: LDL DIRECT 101 mg/dL (0-99)
--- NOTE | 2025-07-18 08:21 | NUR ---
consent for cta cardiac signed by pt at this time, pt voiced al risks and agreed to have test performed, pt was also asked bout shellfish allergy , pt voiced has had a cta before and no reaction was noted.
[2025-07-18] MEDS ORDERED: LISINOPRIL 10 MG TABLET PO SCH ×2 (09:00)
[2025-07-18] MEDS ORDERED: IOHEXOL 350 MG/ML 100ML INFUS..BTL IV ONE (09:18)
[2025-07-18] MEDS: FAMOTIDINE 20MG TAB PO SCH (10:12)
[2025-07-18] MEDS: LISINOPRIL 10 MG TABLET PO SCH (10:13)
--- NOTE | 2025-07-18 10:34 | NUR ---
attempted to give report on pt , as per charge nurse adelaide currently giving tempo, will call back
--- NOTE | 2025-07-18 10:50 | NUR ---
report and care given to ally angulo. all questions answered. pt aaox3. no distress noted, vitals as charted. pt continues with numbness to face, arm and radiating to leg left. dr. teixeira aware. no orders given to this nurse at this time.
--- NOTE | 2025-07-18 11:00 | NUR ---
RECEIVED FROM TELE VERBALLY RESPONSIVE PLEASANT DENIES PAIN CALL JEONG WITH IN REACH COND. STABLE
[2025-07-18] MEDS ORDERED: PANT40TA54 PO (12:20)
[2025-07-18] MEDS ORDERED: FAMO40TA7 PO (12:20)
--- NOTE | 2025-07-18 12:29 | NUR ---
Nutrition consult per hc of bariatric Reviewed labs, notes, and medications. Pt with hx of gastric bypass and sleeve, no s/s of aspiration 07/17/25, on phase 4 bariatric + easy to chew, BG 129(H), vit. D 31.7, elevated b12 per chart review. 75%PO intake, wt via bed scale, last BM 07/15/25, no edema, well nourished, no wounds per nursing. in room, sees PCP every 6 months, takes MVI QD, denied N/V, did see a dietitian prior to procedure, last BM 07/15/25, is lactose intolerant, can't tolerate protein shakes, agreeable to prostat jello, will have bring vitamins from home. RD notified kitchen of Pt's allergy to shellfish and lactose intolerance + bariatric restrictions for a phase IV diet. RD reviewed educational material for post-op diet recommendations. Pt was informed of importance of lifelong vitamin/mineral supplementation, choosing protein first during meals (pt was educated on higher protein requirements), choosing low calorie, sugar free, carbonated free and caffeine beverages. RD also informed pt on lifelong commitment to exercise and dietary recommendations for optimal success post surgery. RD encouraged getting blood work every 3 to 6 months, including B-vitamins, Pt verbalized understanding. RD informed Pt on moving around after procedure to prevent DVT, Pt verbalized understanding. Pt was encouraged to contact RD as questions arise and to attend support groups. Fair compliance suspected. Pt will benefit from outpatient bariatric dietitian follow up post procedure. Pt to follow up with PCP for labs. Recommendations: -Provide phase four bariatric + prostat jello tid w/ trays -Texture per NETWORK COMMUNICATIONS ENGINEER -Monitor PO intake -Encourage PO intake as able -Provide chewable MVI QD when medically feasible -Monitor electrolytes -Monitor diet tolerance -Monitor BM -If no BM >3 days consider stool softener -Consider probiotics QD per diarrhea -Monitor electrolytes -Replenish electrolytes per protocol -Monitor wts -Order b-1 labs due to hx of bypass and sleeve -Reweigh as able -Recommend Pt to follow up with PCP -Monitor goals of care RD available for consult per protocol Addendum: 07/18/25 at [address] Amended: Links added.
--- NOTE | 2025-07-18 14:03 | HMCIMG ---
EXAMINATION: ULTRASOUND EXAMINATION OF THE KIDNEYS WITH SPECTRAL DOPPLER OF THE RENAL VESSELS. CLINICAL HISTORY: Renal stenosis. COMPARISON: None provided. TECHNIQUE: Grayscale and color ultrasound images of the kidneys, and spectral Doppler of the renal arteries are submitted. FINDINGS: The kidneys are normal in caliber; the right kidney measures 11.0 x 5.6 x 4.8 cm and the left kidney measures 12.0 x 5.3 x 4.7 cm in craniocaudal, AP, and transverse dimensions respectively. There is normal renal cortical thickness, and cortical echogenicity. There is no renal calculus. There is no hydronephrosis. There is a simple cortical cyst that measures 1.5 x 0.7 x 1.0 cm at the lower pole of the left kidney. The urinary bladder is suboptimally distended normal in caliber and wall thickness (0.5 cm). There are no calculi in the urinary bladder. Right Peak systolic velocities within the proximal, mid, and distal main right renal artery are 171, 138, and 94 cm/s respectively (resistive index of 0.7, 0.7, and 0.7). Peak systolic velocities within the right intrarenal upper, mid, and lower pole arteries are 57, 34, and 42 cm/s respectively (resistive index of 0.7, 0.6, and 0.6). Left Peak systolic velocities within the proximal, mid, and distal main left renal artery are 229, 137, and 94 cm/s respectively (resistive index of 0.7, 0.7, and 0.8). Peak systolic velocities within the left intrarenal upper, mid, and lower pole arteries are 44, 52, and 31 cm/s respectively (resistive index of 0.7, 0.7, and 0.6). Peak systolic velocity within the abdominal aorta at the level of the renal arteries is 126 cm/s. Visualized aspects of the inferior vena cava and bilateral renal veins are unremarkable. Right mid renal artery/aorta ratio: 1.4 Left mid renal artery/aorta ratio: 1.8 Raised velocity in the left main renal artery. IMPRESSION: Raised velocity in the left main renal artery and left mid renal artery/aorta ratio is 1.8, suggesting less than 60% stenosis. Recommend CT or MR angiogram. Left renal simple cortical cyst. /[place]
--- NOTE | 2025-07-18 14:20 | NUR ---
SPEECH NOTE: MEDICAL TRANSCRIPTIONIST coordinated with nurse. As per nurse, patient tolerating diet recommendations of regular solids, thin liquids with no overt s/s of aspiration. Please re-consult speech therapy services if any s/s of aspiration arise. All questions answered. Addendum: 07/18/[address] JEAN CLAUDE DAVIS Amended: Links added.
--- NOTE | 2025-07-18 14:23 | PN ---
[facility] PROGRESS NOTE Date of Service: Jul 18, 2025 Time of Service: 14:16 SUBJECTIVE: H and P: This is a 55-year-old female with past medical history of gastric bypass surgery, gastric who presented to the hospital secondary to paresthesias on the left upper and lower extremity associated with heaviness, headache since yesterday. She was able to ambulate and denied any dysphagia, slurred speech, word-finding difficulty. She denied any upper extremity and lower extremity weakness, changes in her appetite, nausea, vomiting, abdominal pain, shortness of breath, chest pain. She does state she had an episode of abdominal pain yesterday which resolved without intervention. She does take multivitamins at home but denies any previous history of hypertension. She currently does not take any antihypertensives at home. She did complain of left facial paresthesias but denied any vision changes, swallowing difficulties. Her symptoms improved after she came to the hospital. Labs in the ED were notable for white count of 9.1, hemoglobin was 15.5, MCV was 99.1, platelet count was 201 K, sodium was 144, potassium was 3.8, creatinine was 0.6, troponin was negative x1, LDL cholesterol was 96. Patient underwent a chest x-ray which showed no acute abnormality. CT head showed no intracranial findings and mild left-sided mastoiditis, head and neck CT angiogram showed no acute significant stenosis. Tele neurology was consulted in the ED and patient was noted to have NIH stroke scale of one. She was deemed not to be a candidate for tPA. 07/17/2025 Patient is seen and examined at the bedside. Vitals blood pressure ranging in 150s to 170s/80s to 90s, Telemetry showed sinus rhythm. She reported a resolved episode of facial numbness last night. She currently has tension type headaches without eye pain, tearing or photophobia. Her numbness and tingling sensations in the left upper and lower extremities have resolved. She reports occasional left upper extremity numbness and tingling over the past few years. She denies fever, chills, neck pain, nausea, vomiting, chest pain, palpitations, difficulty in breathing, back pain, weakness in upper and lower extremities. Labs CBC, BMP unremarkable,Procalcitonin less than 0.05, TSH 1.19, HbA1c 6.1, troponins 11, LDL 96, ESR 16, CRP 0.51. MRI brain revealed no acute intracranial findings and Chronic small vessel ischemic changes in bilateral fronto-parietal subcortical white matter. 2D echo showed LVEF of >70% and no valvular abnormalities. 07/18/25: Patient is seen and examined at the bedside in room 216. Vitals blood pressure ranging in 140s/70s to 150s/90s, Telemetry showed sinus rhythm. She reported numbness in her left arm. Patient complaints of neck pain. She denies fever, chills, neck pain, nausea, vomiting, chest pain, palpitations, difficulty in breathing, back pain, weakness in upper and lower extremities. Labs CBC, BMP unremarkable,Procalcitonin less than 0.05, TSH 1.19, HbA1c 6.1, troponins 11, LDL 96, ESR 16, CRP 0.51. MRI brain revealed no acute intracranial findings and Chronic small vessel ischemic changes in bilateral fronto-parietal subcortical white matter. 2D echo showed LVEF of >70% and no valvular abnormalities. Coronary angiography Ct was ordered, awaiting results. Ordered CT cervical spine, will follow up with results. REVIEW OF SYSTEMS CONSTITUTIONAL: Denies fevers, chills, or night sweats. No unintentional weight loss reported. NEUROLOGICAL: Denies headache, motor weakness, gait abnormalities, or tremors. Positive for intermittent paresthesias in the left upper and lower extremity ENT: No hearing loss, otalgia, otorrhea, rhinitis, rhinorrhea, hoarseness, or sore throat. CARDIOVASCULAR: Denies any exertional angina, dyspnea on exertion, orthopnea, paroxysmal nocturnal dyspnea, palpitations, life-threatening arrhythmias, claudication. PULMONARY: Denies any shortness of breath, cough, phlegm/sputum, hemoptysis, pleuritic chest pain. GASTROINTESTINAL: Denies any type of dysphagia to either liquids or solids. Denies nausea, vomiting, pyrosis, early satiety, abdominal pain, diarrhea, constipation, or changes in stool consistency or caliber. Denies coffee-ground emesis, hematemesis, hematochezia, or melanotic stools. GENITOURINARY: Denies frequency, urgency, nocturia, hematuria or incontinence (Storage/Irritative symptoms ENDOCRINOLOGIC: Denies polyuria, polydipsia, polyphagia or heat/cold intolerances. HEMATOLOGIC: Denies thrombophilia/previous clots, or coagulopathy/bleeding disorders. ONCOLOGIC: Denies personal history of malignancy. DERMATOLOGIC: Denies rashes or pruritus. PSYCHIATRIC: Denies any suicidal or homicidal ideation. Denies hallucinations. PHYSICAL EXAM GENERAL APPEARANCE: The patient is awake, alert, and oriented, in no acute cardiopulmonary distress. NEUROLOGICAL: Cranial nerves II-XII grossly intact. Motor is 5/5 in bilateral upper and lower extremities proximal to distal. No sensory deficits. HEENT: Face is symmetric. Pupils are equal and reactive. Extraocular movements are intact. NECK: Supple. No JVD. No thyromegaly. No submental, submandibular, pre- /postauricular, occipital or supraclavicular lymphadenopathy. CHEST: Normal chest expansion LUNGS: Absence of any rales, rhonchi or any wheezing. CARDIOVASCULAR: Regular. S1 and S2 normal. No appreciable rubs, murmurs or gallops. ABDOMEN: Soft, nontender, and nondistended. There is no rebound, voluntary guarding, or rigidity. : Deferred. No Wagner. EXTREMITIES: Non-edematous and not cyanotic. No clubbing. Good capillary refill. SKIN: No skin breakdown. Vital Signs (last 8hr) Date Time Temp Pulse Resp B/P (MAP) Pulse Ox O2 Delivery O2 Flow Rate FiO2 07/18/25 12:00 98.4 61 18 147/72 96 Room Air 07/18/25 11:00 97 Room Air* 0 21 07/18/25 10:49 60 18 157/91 98 Room Air 07/18/25 08:00 98.2 64 18 152/74 98 Room Air 07/18/25 08:00 98 Room Air* 0 21 LABS: Laboratory: Test 07/18/25 04:24 07/17/25 07:25 07/17/25 03:22 07/16/25 20:20 Range/Units White Blood Count 8.3 4.8-10.8 K/uL Red Blood Count 4.49 4.00-5.50 MIL/uL Hemoglobin 14.8 12.0-16.0 g/dL Hematocrit 44.2 36-48 % Mean Corpuscular Volume 98.4 79-99 fL Mean Corpuscular Hemoglobin 33.0 27.0-33.0 pg Mean Corpuscular Hemoglobin Concent 33.5 32.0-36.0 g/dL Red Cell Distribution Width 12.1 11.0-15.5 % Platelet Count 202 130-400 K/uL Mean Platelet Volume 10.5 7.5-10.5 fL Immature Granulocyte % (Auto) 0.2 0-1 % Neutrophils (%) (Auto) 50.9 40.0-77.0 % Lymphocytes (%) (Auto) 36.0 21.0-51.0 % Monocytes (%) (Auto) 9.0 3.0-13.0 % Eosinophils (%) (Auto) 3.4 0.0-8.0 % Basophils (%) (Auto) 0.5 0.0-5.0 % Neutrophils # (Auto) 4.2 1.8-7.7 K/uL Lymphocytes # (Auto) 3.0 1.0-4.8 K/uL Monocytes # (Auto) 0.8 0.1-1.0 K/uL Eosinophils # (Auto) 0.28 0.00-0.70 K/uL Basophils # (Auto) 0.04 0.00-0.20 K/uL Absolute Immature Granulocyte (auto 0.02 0-1 K/uL Nucleated Red Blood Cells 0.0 0.0-0.19 % Sodium Level 142 136-145 mmol/L Potassium Level 4.3 3.5-5.1 mmol/L Chloride Level 106 101-111 mmol/L Carbon Dioxide Level 30 21-32 mmol/L Blood Urea Nitrogen 10 7-18 mg/dL Creatinine 0.6 0.5-1.0 mg/dL Glomerular Filtration Rate Calc 106 >90 mL/min Random Glucose 129 H 70-105 mg/dL Total Calcium 8.8 8.5-10.1 mg/dL Triglycerides Level 97 30-200 mg/dL Cholesterol Level 155 <200 mg/dL LDL Cholesterol 101 H 0-99 mg/dL HDL Cholesterol 42 35-85 mg/dL Urine Color YELLOW YELLOW Urine Appearance CLEAR CLEAR Urine pH 6.5 5.0-8.0 Urine Specific Chaplin 1.031 1.001-1.031 Urine Protein 20 H NEGATIVE mg/dL Urine Glucose (UA) NEGATIVE NEGATIVE mg/dL Urine Ketones 5 H NEGATIVE mg/dL Urine Occult Blood NEGATIVE NEGATIVE Urine Nitrate NEGATIVE NEGATIVE Urine Bilirubin NEGATIVE NEGATIVE mg/dL Urine Urobilinogen 6 H 0.2-1.0 mg/dL Urine Leukocyte Esterase NEGATIVE NEGATIVE Tarun/uL Urine RBC 0-1 0-1 /HPF Urine WBC 2-5 H 0-1 /HPF Urine Squamous Epithelial Cells FEW 0-2 /HPF Urine Bacteria None None Seen /HPF Urine Hyaline Casts 2-5 H 0-1 /LPF /LPF Urine Opiates Screen NEGATIVE NEGATIVE Urine Barbiturates Screen NEGATIVE NEGATIVE Urine Phencyclidine Screen NEGATIVE NEGATIVE Urine Amphetamines Screen NEGATIVE NEGATIVE Urine Benzodiazepines Screen NEGATIVE NEGATIVE Urine Cocaine Screen NEGATIVE NEGATIVE Urine Marijuana (THC) Screen NEGATIVE NEGATIVE Erythrocyte Sedimentation Rate 16 0-30 MM/HR Magnesium Level 2.30 1.80-2.40 mg/dL C-Reactive Protein, Quantitative < 0.50 L 0.5-3.0 mg/L Vitamin B12 Level 1040 H 193-986 pg/mL Vitamin D 25-Hydroxy 31.7 30.0-100.0 ng/mL Whole Blood Glucose 146 H 70-110 MG/DL Current Medications Medications (Trade) Dose Ordered Sig/Sanjiv Route PRN Reason Start Time Stop Time Status Last Admin Dose Admin Acetaminophen (TYLenol 500MG TAB) 500 mg Q6H PRN PO MILD PAIN (1-3) 07/16/25 16:30 08/15/25 16:29 Alprazolam (XANax 0.5MG) 0.5 mg ONCE PRN PO OTHER [SEE ORDER COMMENTS] 07/17/25 10:00 Aspirin (Aspirin 81mg Ec Tab) 81 mg DAILY PO 07/17/25 09:00 08/16/25 08:59 07/18/25 10:12 81 MG Enalaprilat (Vasotec Iv) 1.25 mg Q6H PRN IVP SBP > 180 07/17/25 15:30 08/16/25 15:29 Famotidine (Pepcid 20mg Vial) 20 mg BID IV 07/16/25 21:00 07/18/25 09:11 DC 07/17/25 21:52 20 MG Famotidine (Pepcid 20mg Tab) 20 mg BID PO 07/18/25 09:30 08/17/25 09:29 07/18/25 10:12 20 MG Hydralazine HCl (APRESOLine 20MG INJ) 10 mg Q4H PRN IV FOR SYSTOLIC BP > 160 07/18/25 00:00 08/15/25 16:29 Hydralazine HCl (APRESOLine 20MG INJ) 10 mg Q6H PRN IV ADMINISTER FOR BP > 220/120 07/16/25 16:30 07/17/25 21:24 DC Lisinopril (Prinivil 10mg) 10 mg BID PO 07/18/25 09:00 08/17/25 08:59 07/18/25 10:13 10 MG Lisinopril (Prinivil 10mg) 10 mg DAILY PO 07/18/25 09:00 07/17/25 20:55 DC Lisinopril (Prinivil 10mg) 10 mg DAILY PO 07/18/25 09:00 07/17/25 21:40 DC Ondansetron HCl (zoFRAN 4MG INJ) 4 mg Q6H PRN IVP NAUSEA/VOMITING 07/16/25 16:30 08/15/25 16:29 DIAGNOSTICS / RADIOLOGY: [address] [address] IMAGING REPORT Signed PATIENT: JACLYN CHATMAN MR#: [id number] : 1970 SEX: F AGE: 55 LOCATION: 4DH ORDER 1016 STATUS: ADM IN REPORT#: [id number] SERVICE 0500 REASON: renal stenosis? with doppler ORDERING PHYSICIAN: CHINO DOE AGACNP PROCEDURE: SHANE ART DO - US RENAL ARTERY DOPPLER EXAMINATION: ULTRASOUND EXAMINATION OF THE KIDNEYS WITH SPECTRAL DOPPLER OF THE RENAL VESSELS. CLINICAL HISTORY: Renal stenosis. COMPARISON: None provided. TECHNIQUE: Grayscale and color ultrasound images of the kidneys, and spectral Doppler of the renal arteries are submitted. FINDINGS: The kidneys are normal in caliber; the right kidney measures 11.0 x 5.6 x 4.8 cm and the left kidney measures 12.0 x 5.3 x 4.7 cm in craniocaudal, AP, and transverse dimensions respectively. There is normal renal cortical thickness, and cortical echogenicity. There is no renal calculus. There is no hydronephrosis. There is a simple cortical cyst that measures 1.5 x 0.7 x 1.0 cm at the lower pole of the left kidney. The urinary bladder is suboptimally distended normal in caliber and wall thickness (0.5 cm). There are no calculi in the urinary bladder. Right Peak systolic velocities within the proximal, mid, and distal main right renal artery are 171, 138, and 94 cm/s respectively (resistive index of 0.7, 0.7, and 0.7). Peak systolic velocities within the right intrarenal upper, mid, and lower pole arteries are 57, 34, and 42 cm/s respectively (resistive index of 0.7, 0.6, and 0.6). Left Peak systolic velocities within the proximal, mid, and distal main left renal artery are 229, 137, and 94 cm/s respectively (resistive index of 0.7, 0.7, and 0.8). Peak systolic velocities within the left intrarenal upper, mid, and lower pole arteries are 44, 52, and 31 cm/s respectively (resistive index of 0.7, 0.7, and 0.6). Peak systolic velocity within the abdominal aorta at the level of the renal arteries is 126 cm/s. Visualized aspects of the inferior vena cava and bilateral renal veins are unremarkable. Right mid renal artery/aorta ratio: 1.4 Left mid renal artery/aorta ratio: 1.8 Raised velocity in the left main renal artery. IMPRESSION: Raised velocity in the left main renal artery and left mid renal artery/aorta ratio is 1.8, suggesting less than 60% stenosis. Recommend CT or MR angiogram. Left renal simple cortical cyst. 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 [07/16], POA Tension type headache, POA Chronic small vessel ischemic changes on MRI HTN PLAN: Hypertensive emergency POA Currently blood pressure ranging in 140s/70s to 150s/90s, Continue IV antihypertensives PRN, as directed Start lisinopril 10 mg as per critical Care consult recommendations Monitor vitals every 4 hours Left-sided upper and lower extremity paresthesia Initial Differential: Acute stroke versus TIA versus symptoms secondary to hypertensive emergency CT head showed no acute abnormalities and mild left mastoiditis, CTA head and neck revealed no acute abnormalities, MRI brain revealed no acute abnormalities and showed chronic small-vessel ischemic changes in bilateral fronto-parietal subcortical white matter Acute stroke ruled out ESR-16, CRP-<0.[address] was ordered, awaiting results. Ordered CT cervical spine, will follow up with results. Neurology is consulted and we will follow their recommendations Continue neuro checks every 4 hours We will start Aspirin 81mg daily We will start Atorvastatin med PT/ST/OT We will order B12, folate, thiamine levels and consult nutrition given her history of bariatric surgery. Vitamin B12- 1040 Headaches, POA Not associated with tearing of eyes, eye pain, photosensitivity, facial/temporal tenderness Likely stress related or secondary to fatigue Continue acetaminophen p.r.n. 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 I reviewed the documentation, medical decision making, and treatment plan as noted by the resident physician above. I agree with the findings and plan of care. ROSANNE LAURENT MD, SHAJI MD Jul 18, 2025 14:23
--- NOTE | 2025-07-18 17:14 | NUR ---
Reflexes, sensation and MMT WNL to BLE and BUE. Pt able to walk 400 ft unassisted with slight BONE. Vitals ranging uppers 170's/100 through out session. No other s/s at this moment.
--- NOTE | 2025-07-18 19:06 | PN ---
[facility] PROGRESS NOTE Date Patient Seen: Jul 18, 2025 Time of Visit: 09:00 Supervising Physician: Seb Ward MD Primary Care Physician: Tank Ramos MD Outpatient Specialists: [ ] Inpatient Consults: [facility] PROBLEM LIST: Hypertensive emergency, POA, resolved Acute CVA ruled out Paresthesia to left side POA resolved Obesity BMI 42.0 Suspected JOYCE STOP-BANG Score 4 points ( High risk) History of gastric bypass surgery, gastric sleeve, INTERVAL HISTORY: Pt is awake alert and oriented. No major overnight events. Labs unremarkable. Pt reports left arm paraesthesia to left arm but no focal weakness. CT cervical spine ordered by primary team. She is hemodynamically stable. Blood pressures are better controlled. Lisinopril has been increased to 10 mg PO BID per cardiology team. CCTA ordered per cardiology team and pending. REVIEW OF SYSTEMS: 12 point ROS reviewed with patient. Pertinent positives mentioned above. Otherwise negative. PHYSICAL EXAM: GENERAL: Alert, weak, awake oriented x 3 HEENT: EOMI, Sclera non icteric, moist mucosa NECK: Supple, no JVD, trachea midline LUNGS: Clear breath sounds bilaterally. No wheezes HEART: Regular rate and rhythm. Normal S1 and S2, without murmurs ABD: Abdomen soft, nontender. Bowel sounds present EXT: No clubbing cyanosis or edema NEURO: Alert and oriented to person, follows commands Vital Signs (last 8hr) Date Time Temp Pulse Resp B/P (MAP) Pulse Ox O2 Delivery O2 Flow Rate FiO2 07/18/25 16:00 98.6 62 18 169/80 98 Room Air 07/18/25 12:00 98.4 61 18 147/72 96 Room Air 07/18/25 11:00 97 Room Air* 0 21 LABS: Hematology Labs: Test 07/18/25 04:24 07/17/25 03:22 Range/Units White Blood Count 8.3 4.8-10.8 K/uL Red Blood Count 4.49 4.00-5.50 MIL/uL Hemoglobin 14.8 12.0-16.0 g/dL Hematocrit 44.2 36-48 % Mean Corpuscular Volume 98.4 79-99 fL Mean Corpuscular Hemoglobin 33.0 27.0-33.0 pg Mean Corpuscular Hemoglobin Concent 33.5 32.0-36.0 g/dL Red Cell Distribution Width 12.1 11.0-15.5 % Platelet Count 202 130-400 K/uL Mean Platelet Volume 10.5 7.5-10.5 fL Immature Granulocyte % (Auto) 0.2 0-1 % Neutrophils (%) (Auto) 50.9 40.0-77.0 % Lymphocytes (%) (Auto) 36.0 21.0-51.0 % Monocytes (%) (Auto) 9.0 3.0-13.0 % Eosinophils (%) (Auto) 3.4 0.0-8.0 % Basophils (%) (Auto) 0.5 0.0-5.0 % Neutrophils # (Auto) 4.2 1.8-7.7 K/uL Lymphocytes # (Auto) 3.0 1.0-4.8 K/uL Monocytes # (Auto) 0.8 0.1-1.0 K/uL Eosinophils # (Auto) 0.28 0.00-0.70 K/uL Basophils # (Auto) 0.04 0.00-0.20 K/uL Absolute Immature Granulocyte (auto 0.02 0-1 K/uL Nucleated Red Blood Cells 0.0 0.0-0.19 % Erythrocyte Sedimentation Rate 16 0-30 MM/HR Chemistry Labs: Test 07/18/25 04:24 07/17/25 03:22 07/16/25 20:20 Range/Units Sodium Level 142 136-145 mmol/L Potassium Level 4.3 3.5-5.1 mmol/L Chloride Level 106 101-111 mmol/L Carbon Dioxide Level 30 21-32 mmol/L Blood Urea Nitrogen 10 7-18 mg/dL Creatinine 0.6 0.5-1.0 mg/dL Glomerular Filtration Rate Calc 106 >90 mL/min Random Glucose 129 H 70-105 mg/dL Total Calcium 8.8 8.5-10.1 mg/dL Triglycerides Level 97 30-200 mg/dL Cholesterol Level 155 <200 mg/dL LDL Cholesterol 101 H 0-99 mg/dL HDL Cholesterol 42 35-85 mg/dL Magnesium Level 2.30 1.80-2.40 mg/dL C-Reactive Protein, Quantitative < 0.50 L 0.5-3.0 mg/L Vitamin B12 Level 1040 H 193-986 pg/mL Vitamin D 25-Hydroxy 31.7 30.0-100.0 ng/mL Whole Blood Glucose 146 H 70-110 MG/DL DIAGNOSTICS / RADIOLOGY RESULTS: [ [facility] [address] [place], [place] [id number] IMAGING REPORT Signed PATIENT: JACLYN CHATMAN MR#: [id number] : 1970 SEX: F AGE: 55 LOCATION: 4DH ORDER 1016 STATUS: ADM IN REPORT#: [id number] SERVICE 0500 REASON: renal stenosis? with doppler ORDERING PHYSICIAN: CHINO DOE PROCEDURE: SHANE ART DO - US RENAL ARTERY DOPPLER EXAMINATION: ULTRASOUND EXAMINATION OF THE KIDNEYS WITH SPECTRAL DOPPLER OF THE RENAL VESSELS. CLINICAL HISTORY: Renal stenosis. COMPARISON: None provided. TECHNIQUE: Grayscale and color ultrasound images of the kidneys, and spectral Doppler of the renal arteries are submitted. FINDINGS: The kidneys are normal in caliber; the right kidney measures 11.0 x 5.6 x 4.8 cm and the left kidney measures 12.0 x 5.3 x 4.7 cm in craniocaudal, AP, and transverse dimensions respectively. There is normal renal cortical thickness, and cortical echogenicity. There is no renal calculus. There is no hydronephrosis. There is a simple cortical cyst that measures 1.5 x 0.7 x 1.0 cm at the lower pole of the left kidney. The urinary bladder is suboptimally distended normal in caliber and wall thickness (0.5 cm). There are no calculi in the urinary bladder. Right Peak systolic velocities within the proximal, mid, and distal main right renal artery are 171, 138, and 94 cm/s respectively (resistive index of 0.7, 0.7, and 0.7). Peak systolic velocities within the right intrarenal upper, mid, and lower pole arteries are 57, 34, and 42 cm/s respectively (resistive index of 0.7, 0.6, and 0.6). Left Peak systolic velocities within the proximal, mid, and distal main left renal artery are 229, 137, and 94 cm/s respectively (resistive index of 0.7, 0.7, and 0.8). Peak systolic velocities within the left intrarenal upper, mid, and lower pole arteries are 44, 52, and 31 cm/s respectively (resistive index of 0.7, 0.7, and 0.6). Peak systolic velocity within the abdominal aorta at the level of the renal arteries is 126 cm/s. Visualized aspects of the inferior vena cava and bilateral renal veins are unremarkable. Right mid renal artery/aorta ratio: 1.4 Left mid renal artery/aorta ratio: 1.8 Raised velocity in the left main renal artery. IMPRESSION: Raised velocity in the left main renal artery and left mid renal artery/aorta ratio is 1.8, suggesting less than 60% stenosis. Recommend CT or MR angiogram. Left renal simple cortical cyst. /[place] DICTATED BY: JOAQUÍN MULLEN Jr., MD DATE: 07/18/251501 ELECTRONICALLY SIGNED BY: JOAQUÍN MULLEN Jr., MD DATE: 07/18/251501 ] PLAN MRI of the brain shows: -No acte intracranial findings. -Chronic small vessel ischemic changes in bilateral fronto-parietal subcortical white matter.CTA head and neck WNL CT head without contrast shows left mastoiditis 2D echo pending lisinopril 10 mg po bid Hydralazine PRN IVP Enalapril PRN IVP Holding off on beta chioma due to episodes of bradycardia in the 50s Arrange outpatient pulmonology referral for sleep study, PFT and follow-up management upon discharge Continue to follow cardiology recommendations NEURO: Minimize central acting medications as possible. Maintain fall precautions, adequate lighting during the day PULMONARY: Supplemental 02 as needed. Maintain aspiration precautions at all times CARDIOVASCULAR: Follow hemodynamics. Vital signs per facility protocol GI & NUTRITION: Continue with nutritional support. Continue stool softeners and laxatives as needed. KIDNEYS & ELECTROLYTES: Strict monitoring of intake, output and overall fluid balance. Avoid nephrotoxic medications to the extent possible. Medications to be dosed according to renal function. Monitor electrolytes and replace as needed ENDOCRINE: Maintain blood glucose between 100-180 at all times. Hypoglycemia protocol in place INFECTIOUS DISEASE: Trend temperature, WBC and procalcitonin level Follow cultures, deescalate antibiotics as soon as possible. Panculture if new onset fever ONCOLOGY/HEMATOLOGY/COAGULATION: Monitor for s/s of bleeding Monitor hemoglobin, coagulation studies as needed SKIN: Pressure ulcer prevention per facility protocol Specialty mattress ORTHO/REHAB: Continue PT/OT Prophylaxis: Continue GI and DVT prophylaxis Code Status: Full Resuscitation Disposition: TBD Other: ATTESTATION BY PHYSICIAN I attest that I reviewed and discussed the case with the Physician Family Assessment Worker as well as agree with the Physician Family Assessment Worker's findings, plans of care, and documentation above. Seb Davenport MD, [facility] Jul 18, 2025 19:06
[2025-07-19] VITALS (7 sets, daily range): BP systolic 128–187; BP diastolic 67–87; PULSE 59–73; RESP 18; TEMP 97.7–98.4; O2SAT 98
[2025-07-19 04:20] LABS: IMMATURE GRANULOCYTE ABSOLUTE 0.03 K/uL (0-1); NUCLEATED RED BLOOD CELLS 0.0 % (0.0-0.19); PLATELET COUNT (AUTO) 221 K/uL (130-400); RED BLOOD CELL COUNT(AUTO) 4.60 MIL/uL (4.00-5.50); RED CELL DISTRIBUTION WIDTH 12.2 % (11.0-15.5); WHITE BLOOD COUNT (AUTO) 9.6 K/uL (4.8-10.8)
[2025-07-19 04:35] LABS: CREATININE 0.7 mg/dL (0.5-1.0); GLOMERULAR FILTR. RATE CALC 102.0 mL/min (>90); GLUCOSE,RANDOM 125.0 mg/dL (70-105); SODIUM SERUM 143.0 mmol/L (136-145); UREA NITROGEN, BLOOD 12.0 mg/dL (7-18)
--- NOTE | 2025-07-19 06:51 | CARDIOLOGY ---
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 A dedicated, limited window, coronary imaging protocol was used, with single breath-hold, retrospective ECG gating, and automated arrhythmia rejection. 100 cc of low osmolar contrast agent: Omnipaque 350 was delivered via a 18-gauge IV catheter in the right antecubital fossa, using a power injector and followed by 60 cc of normal saline bolus as a chaser. Collimated images were reformatted at 0.5 mm intervals, and sent to an offline independent workstation for interpretation, using 3D anatomic reconstructions: Curved multiplanar reconstructions, maximum intensity projections, and multiplanar imaging. No metoprolol was administered prior to scanning due to low baseline heart rate. 0.4 mg SL nitroglycerin was given. CORONARY ARTERY DESCRIPTIONS: The coronary arteries arise in normal position. Left main coronary artery: Normal caliber vessel that bifurcates into the LAD and LCx. No stenosis. Left anterior descending coronary artery: Normal caliber vessel and gives rise to diagonal and septal branches. No stenosis. Left circumflex coronary artery: Normal caliber, nondominant and gives rise to a large OM branch. No stenosis. Right coronary artery: Large, dominant vessel giving rise to the PL and PDA branches. No stenosis. CONCLUSION Negative coronary CTA without evidence of significant stenosis CALIN RUVALCABA MD Jul 19, 2025 06:51
--- NOTE | 2025-07-19 13:24 | PN ---
[facility] PROGRESS NOTE Date of Service: Jul 19, 2025 Time of Service: 13:07 SUBJECTIVE: H and P: This is a 55-year-old female with past medical history of gastric bypass surgery, gastric who presented to the hospital secondary to paresthesias on the left upper and lower extremity associated with heaviness, headache since yesterday. She was able to ambulate and denied any dysphagia, slurred speech, word-finding difficulty. She denied any upper extremity and lower extremity weakness, changes in her appetite, nausea, vomiting, abdominal pain, shortness of breath, chest pain. She does state she had an episode of abdominal pain yesterday which resolved without intervention. She does take multivitamins at home but denies any previous history of hypertension. She currently does not take any antihypertensives at home. She did complain of left facial paresthesias but denied any vision changes, swallowing difficulties. Her symptoms improved after she came to the hospital. Labs in the ED were notable for white count of 9.1, hemoglobin was 15.5, MCV was 99.1, platelet count was 201 K, sodium was 144, potassium was 3.8, creatinine was 0.6, troponin was negative x1, LDL cholesterol was 96. Patient underwent a chest x-ray which showed no acute abnormality. CT head showed no intracranial findings and mild left-sided mastoiditis, head and neck CT angiogram showed no acute significant stenosis. Tele neurology was consulted in the ED and patient was noted to have NIH stroke scale of one. She was deemed not to be a candidate for tPA. 07/17/2025 Patient is seen and examined at the bedside. Vitals blood pressure ranging in 150s to 170s/80s to 90s, Telemetry showed sinus rhythm. She reported a resolved episode of facial numbness last night. She currently has tension type headaches without eye pain, tearing or photophobia. Her numbness and tingling sensations in the left upper and lower extremities have resolved. She reports occasional left upper extremity numbness and tingling over the past few years. She denies fever, chills, neck pain, nausea, vomiting, chest pain, palpitations, difficulty in breathing, back pain, weakness in upper and lower extremities. Labs CBC, BMP unremarkable,Procalcitonin less than 0.05, TSH 1.19, HbA1c 6.1, troponins 11, LDL 96, ESR 16, CRP 0.51. MRI brain revealed no acute intracranial findings and Chronic small vessel ischemic changes in bilateral fronto-parietal subcortical white matter. 2D echo showed LVEF of >70% and no valvular abnormalities. 07/18/25: Patient is seen and examined at the bedside in room 216. Vitals blood pressure ranging in 140s/70s to 150s/90s, Telemetry showed sinus rhythm. She reported numbness in her left arm. Patient complaints of neck pain. She denies fever, chills, neck pain, nausea, vomiting, chest pain, palpitations, difficulty in breathing, back pain, weakness in upper and lower extremities. Labs CBC, BMP unremarkable,Procalcitonin less than 0.05, TSH 1.19, HbA1c 6.1, troponins 11, LDL 96, ESR 16, CRP 0.51. MRI brain revealed no acute intracranial findings and Chronic small vessel ischemic changes in bilateral fronto-parietal subcortical white matter. 2D echo showed LVEF of >70% and no valvular abnormalities. Coronary angiography Ct was ordered, awaiting results. Ordered CT cervical spine, will follow up with results. 07/18/25: Patient is seen and examined at the bedside in room 426. She reports of having another episode of left sided numbness in her left upper extremity, lower extremity and left side of face today in the morning around 8 AM. After the episode she noticed decreased motor strength in graasping things for like 10 minutes. She also noticed her blood pressure rise to 162/87 during the episode. Labs CBC, BMP unremarkable,Procalcitonin less than 0.05, TSH 1.19, HbA1c 6.1, troponins 11, LDL 96, ESR 16, CRP 0.51. MRI brain revealed no acute intracranial findings and Chronic small vessel ischemic changes in bilateral fronto-parietal subcortical white matter. 2D echo showed LVEF of >70% and no valvular abnormalities. Coronary angiography Ct was ordered, results were unremarkable without any evidence of stenosis. Ordered CT cervical spine, will follow up with results. REVIEW OF SYSTEMS CONSTITUTIONAL: Denies fevers, chills, or night sweats. No unintentional weight loss reported. NEUROLOGICAL: Denies headache, motor weakness, gait abnormalities, or tremors. Positive for intermittent paresthesias in the left upper and lower extremity ENT: No hearing loss, otalgia, otorrhea, rhinitis, rhinorrhea, hoarseness, or sore throat. CARDIOVASCULAR: Denies any exertional angina, dyspnea on exertion, orthopnea, paroxysmal nocturnal dyspnea, palpitations, life-threatening arrhythmias, claudication. PULMONARY: Denies any shortness of breath, cough, phlegm/sputum, hemoptysis, pleuritic chest pain. GASTROINTESTINAL: Denies any type of dysphagia to either liquids or solids. Denies nausea, vomiting, pyrosis, early satiety, abdominal pain, diarrhea, constipation, or changes in stool consistency or caliber. Denies coffee-ground emesis, hematemesis, hematochezia, or melanotic stools. GENITOURINARY: Denies frequency, urgency, nocturia, hematuria or incontinence (Storage/Irritative symptoms ENDOCRINOLOGIC: Denies polyuria, polydipsia, polyphagia or heat/cold intolerances. HEMATOLOGIC: Denies thrombophilia/previous clots, or coagulopathy/bleeding disorders. ONCOLOGIC: Denies personal history of malignancy. DERMATOLOGIC: Denies rashes or pruritus. PSYCHIATRIC: Denies any suicidal or homicidal ideation. Denies hallucinations. PHYSICAL EXAM GENERAL APPEARANCE: The patient is awake, alert, and oriented, in no acute cardiopulmonary distress. NEUROLOGICAL: Cranial nerves II-XII grossly intact. Motor is 5/5 in bilateral upper and lower extremities proximal to distal. No sensory deficits. HEENT: Face is symmetric. Pupils are equal and reactive. Extraocular movements are intact. NECK: Supple. No JVD. No thyromegaly. No submental, submandibular, pre- /postauricular, occipital or supraclavicular lymphadenopathy. CHEST: Normal chest expansion LUNGS: Absence of any rales, rhonchi or any wheezing. CARDIOVASCULAR: Regular. S1 and S2 normal. No appreciable rubs, murmurs or gallops. ABDOMEN: Soft, nontender, and nondistended. There is no rebound, voluntary guarding, or rigidity. : Deferred. No Wagner. EXTREMITIES: Non-edematous and not cyanotic. No clubbing. Good capillary refill. SKIN: No skin breakdown. Vital Signs (last 8hr) Date Time Temp Pulse Resp B/P (MAP) Pulse Ox O2 Delivery O2 Flow Rate FiO2 07/19/25 12:00 98.2 60 18 128/86 97 Room Air 07/19/25 09:00 Room Air* 0 21 07/19/25 08:00 98.1 59 18 162/87 96 Room Air LABS: Laboratory: Test 07/19/25 04:16 07/18/25 04:24 Range/Units White Blood Count 9.6 4.8-10.8 K/uL Red Blood Count 4.60 4.00-5.50 MIL/uL Hemoglobin 15.5 12.0-16.0 g/dL Hematocrit 44.6 36-48 % Mean Corpuscular Volume 97.0 79-99 fL Mean Corpuscular Hemoglobin 33.7 H 27.0-33.0 pg Mean Corpuscular Hemoglobin Concent 34.8 32.0-36.0 g/dL Red Cell Distribution Width 12.2 11.0-15.5 % Platelet Count 221 130-400 K/uL Mean Platelet Volume 10.6 H 7.5-10.5 fL Immature Granulocyte % (Auto) 0.3 0-1 % Neutrophils (%) (Auto) 50.6 40.0-77.0 % Lymphocytes (%) (Auto) 37.3 21.0-51.0 % Monocytes (%) (Auto) 7.9 3.0-13.0 % Eosinophils (%) (Auto) 3.5 0.0-8.0 % Basophils (%) (Auto) 0.4 0.0-5.0 % Neutrophils # (Auto) 4.8 1.8-7.7 K/uL Lymphocytes # (Auto) 3.6 1.0-4.8 K/uL Monocytes # (Auto) 0.8 0.1-1.0 K/uL Eosinophils # (Auto) 0.34 0.00-0.70 K/uL Basophils # (Auto) 0.04 0.00-0.20 K/uL Absolute Immature Granulocyte (auto 0.03 0-1 K/uL Nucleated Red Blood Cells 0.0 0.0-0.19 % Sodium Level 143 136-145 mmol/L Potassium Level 4.5 3.5-5.1 mmol/L Chloride Level 106 101-111 mmol/L Carbon Dioxide Level 30 21-32 mmol/L Blood Urea Nitrogen 12 7-18 mg/dL Creatinine 0.7 0.5-1.0 mg/dL Glomerular Filtration Rate Calc 102 >90 mL/min Random Glucose 125 H 70-105 mg/dL Total Calcium 9.1 8.5-10.1 mg/dL Triglycerides Level 97 30-200 mg/dL Cholesterol Level 155 <200 mg/dL LDL Cholesterol 101 H 0-99 mg/dL HDL Cholesterol 42 35-85 mg/dL Current Medications Medications (Trade) Dose Ordered Sig/Sanjiv Route PRN Reason Start Time Stop Time Status Last Admin Dose Admin Acetaminophen (TYLenol 500MG TAB) 500 mg Q6H PRN PO MILD PAIN (1-3) 07/16/25 16:30 08/15/25 16:29 Alprazolam (XANax 0.5MG) 0.5 mg ONCE PRN PO OTHER [SEE ORDER COMMENTS] 07/17/25 10:00 Aspirin (Aspirin 81mg Ec Tab) 81 mg DAILY PO 07/17/25 09:00 08/16/25 08:59 07/19/25 08:02 81 MG Atorvastatin Calcium (LIPItor 20MG) 20 mg DAILY PO 07/20/25 09:00 08/19/25 08:59 Enalaprilat (Vasotec Iv) 1.25 mg Q6H PRN IVP SBP > 180 07/17/25 15:30 08/16/25 15:29 Famotidine (Pepcid 20mg Vial) 20 mg BID IV 07/16/25 21:00 07/18/25 09:11 DC 07/17/25 21:52 20 MG Famotidine (Pepcid 20mg Tab) 20 mg BID PO 07/18/25 09:30 08/17/25 09:29 07/19/25 08:02 20 MG Hydralazine HCl (APRESOLine 20MG INJ) 10 mg Q4H PRN IV FOR SYSTOLIC BP > 160 07/18/25 00:00 08/15/25 16:29 Hydralazine HCl (APRESOLine 20MG INJ) 10 mg Q6H PRN IV ADMINISTER FOR BP > 220/120 07/16/25 16:30 07/17/25 21:24 DC Lisinopril (Prinivil 10mg) 10 mg BID PO 07/18/25 09:00 08/17/25 08:59 07/19/25 08:02 10 MG Lisinopril (Prinivil 10mg) 10 mg DAILY PO 07/18/25 09:00 07/17/25 20:55 DC Lisinopril (Prinivil 10mg) 10 mg DAILY PO 07/18/25 09:00 10/9/25 21:40 DC Ondansetron HCl (zoFRAN 4MG INJ) 4 mg Q6H PRN IVP NAUSEA/VOMITING 07/16/25 16:30 08/15/25 16:29 DIAGNOSTICS / RADIOLOGY: [place] 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 A dedicated, limited window, coronary imaging protocol was used, with single breath-hold, retrospective ECG gating, and automated arrhythmia rejection. 100 cc of low osmolar contrast agent: Omnipaque 350 was delivered via a 18-gauge IV catheter in the right antecubital fossa, using a power injector and followed by 60 cc of normal saline bolus as a chaser. Collimated images were reformatted at 0.5 mm intervals, and sent to an offline independent workstation for interpretation, using 3D anatomic reconstructions: Curved multiplanar reconstructions, maximum intensity projections, and multiplanar imaging. No metoprolol was administered prior to scanning due to low baseline heart rate. 0.4 mg SL nitroglycerin was given. CORONARY ARTERY DESCRIPTIONS: The coronary arteries arise in normal position. Left main coronary artery: Normal caliber vessel that bifurcates into the LAD and LCx. No stenosis. Left anterior descending coronary artery: Normal caliber vessel and gives rise to diagonal and septal branches. No stenosis. Left circumflex coronary artery: Normal caliber, nondominant and gives rise to a large OM branch. No stenosis. Right coronary artery: Large, dominant vessel giving rise to the PL and PDA branches. No stenosis. 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 Continue IV antihypertensives PRN, as directed Start lisinopril 10 mg as per critical Care consult recommendations Monitor vitals every 4 hours Left-sided upper and lower extremity paresthesia Initial Differential: Acute stroke versus TIA versus symptoms secondary to hypertensive emergency CT head showed no acute abnormalities and mild left mastoiditis, CTA head and neck revealed no acute abnormalities, MRI brain revealed no acute abnormalities and showed chronic small-vessel ischemic changes in bilateral fronto-parietal subcortical white matter Acute stroke ruled out ESR-16, CRP-<0.[address] was ordered, results were unremarkable without any evidence of stenosis. Ordered CT cervical spine, waiting for report. Neurology is consulted and we will follow their recommendations Continue neuro checks every 4 hours We will start Aspirin 81mg daily PT/ST/OT We will order B12, folate, thiamine levels and consult nutrition given her his tory of bariatric surgery. Vitamin B12- 1040 Headaches, POA Not associated with tearing of eyes, eye pain, photosensitivity, facial/temporal tenderness Likely stress related or secondary to fatigue Continue acetaminophen p.r.n. 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 ATTESTATION BY PHYSICIAN I have seen and examined the patient. I reviewed the documentation, medical decision making, and treatment plan as noted by the resident physician above. I agree with the findings and plan of care. ROSANNE LAURENT MD, SHAJI MD Jul 19, 2025 13:24
--- NOTE | 2025-07-19 13:36 | PN ---
CARDIOLOGY Reason for consult: Left arm numbness HPI/story at presentation: This is a pleasant 55-year-old female with past medical history of lupus with complaints of atypical chest discomfort, left arm numbness, facial numbness Eskandar being worked up for possible CVA/TIA. Cardiology was consulted for further evaluation management Past medical history: See below Allergies, Meds See chart Review of systems Review of Systems Constitutional: Negative for chills and fever. HENT: Negative for ear discharge and ear pain. Eyes: Negative for photophobia and discharge. Respiratory: Negative for cough, sputum production and stridor. Cardiovascular: Negative for chest pain and palpitations. Gastrointestinal: Negative for diarrhea and vomiting. Genitourinary: Negative for frequency. Musculoskeletal: Negative for myalgias. Skin: Negative for rash. Neurological: Negative for focal weakness and seizures. Endo/Heme/Allergies: Negative for polydipsia. Psychiatric/Behavioral: Negative for hallucinations. Vitals see chart PHYSICAL EXAMINATION GENERAL: The patient is alert and oriented*3 HEENT: Nonicteric sclerae, non traumatic HEART: Regular rate and rhythm with no murmurs LUNGS: Clear to auscultation bilaterally ABDOMEN: No acute issues, non tender GENITAL, RECTAL: deferred SKIN: No rash NEUROLOGIC: NFND EXTREMITIES: No edema ASSESSMENT LEFT-SIDED NUMBNESS, WEAKNESS TIA/CVA being worked up, 07/16/2025 Echocardiogram, bubble study was negative for any abnormalities, MRI was also negative. PREVIOUS HISTORY OF GASTRIC BYPASS, OBESITY, SLEEP APNEA HYPERTENSION With urgency at presentation CORE MEASURES Pending OTHER MEDICAL PROBLEMS Reviewed PLAN 07/16/2005/28/2025 echocardiogram has been ordered to further evaluate for possible wall source of emboli. MRI is also pending to evaluate for CVA. Numbness has improved. Seen and examined 07/16/2025 around 9 PM. 07/17/2025 Neurological workup has been negative. Blood pressures are better. Will need to rule out cardiac etiology of jaw and left arm pain. Will get a CTA coronary tomorrow. Risk benefits addressed. MRI was negative. Seen and examined 07/17/2025 at around 8 PM. 07/18/2025 no active cardiac complaints, did have another episode of left-sided arm numbness, facial numbness and tingling in her tongue. CT spine has been ordered and pending, will await results. Potentially, spinal issues versus complex migraine in the differential. No coronary etiology identified. Seen and examined 07/19/2025 at around 1:30 PM. ATTESTATION I was involved substantially in the care of this patient Number and complexity of problems addressed: 1 acute illness with systemic features Amount and or complexity of data Review of prior external note(s) from each unique source: 2+ Ordering of each unique test : 0 Review of the result(s) of each unique test: 2+ Assessment requiring an independent historian(s): No Independent interpretation of test performed by another MD/QHCP/appropriate source (not separately reported) : No Discussion of management or test interpretation with external MD/QHCP/appropriate source (not separately reported) : No Risk status (cardiac, billing related): Moderate Vitals/Labs Vital Signs Date Time Temp Pulse Resp B/P (MAP) Pulse Ox O2 Delivery O2 Flow Rate FiO2 07/19/25 12:00 98.2 60 18 128/86 97 Room Air 07/19/25 09:00 0 21 Laboratory Tests 07/19/25 04:16 Medications Current Medications Hydralazine HCl 10 mg ONCE ONCE IV Last administered on 07/16/25at 16:03; Start 07/16/25 at 14:30; Stop 07/16/25 at 14:31; Status DC Aspirin 325 mg ONCE ONCE PO Last administered on 07/16/25at 16:03; Start 07/16/25 at 14:30; Stop 07/16/25 at 14:31; Status DC Iohexol 75 ml STK-MED ONCE IV; Start 07/16/25 at 14:13; Stop 07/16/25 at 14:13; Status DC Iohexol 75 ml STK-MED ONCE IV; Start 07/16/25 at 14:17; Stop 07/16/25 at 14:17; Status DC Famotidine 20 mg BID IV Last administered on 07/17/25at 21:52; Start 07/16/25 at 21:00; Stop 07/18/25 at 09:11; Status DC Hydralazine HCl 10 mg Q6H PRN IV; Start 07/16/25 at 16:30; Stop 07/17/25 at 21:24; Status DC Acetaminophen 500 mg Q6H PRN PO; Start 07/16/25 at 16:30; Stop 08/15/25 at 16:29 Ondansetron HCl 4 mg Q6H PRN IVP; Start 07/16/25 at 16:30; Stop 08/15/25 at 16:29 Aspirin 81 mg DAILY PO Last administered on 07/19/25at 08:02; Start 07/17/25 at 09:00; Stop 08/16/25 at 08:59 Lisinopril 10 mg DAILY PO; Start 07/18/25 at 09:00; Stop 07/17/25 at 20:55; Status DC Alprazolam 0.5 mg ONCE PRN PO; Start 07/17/25 at 10:00 Lisinopril 10 mg ONCE ONCE PO Last administered on 07/17/25at 10:10; Start 07/17/25 at 10:00; Stop 07/17/25 at 10:01; Status DC Enalaprilat 1.25 mg Q6H PRN IVP; Start 07/17/25 at 15:30; Stop 08/16/25 at 15:29 Lisinopril 10 mg DAILY PO; Start 07/18/25 at 09:00; Stop 07/17/25 at 21:40; Status DC Hydralazine HCl 10 mg Q4H PRN IV; Start 07/18/25 at 00:00; Stop 08/15/25 at 16:29 Lisinopril 10 mg BID PO Last administered on 07/19/25at 08:02; Start 07/18/25 at 09:00; Stop 08/17/25 at 08:59 Lisinopril 10 mg ONCE ONCE PO Last administered on 07/17/25at 21:52; Start 07/17/25 at 22:00; Stop 07/17/25 at 22:01; Status DC Famotidine 20 mg BID PO Last administered on 07/19/25at 08:02; Start 07/18/25 at 09:30; Stop 08/17/25 at 09:29 Iohexol 35,000 mg STK-MED ONCE IV; Start 07/18/25 at 09:18; Stop 07/18/25 at 09:18; Status DC Metoprolol Tartrate 5 mg STK-MED ONCE IV; Start 07/18/25 at 09:31; Stop 07/18/25 at 09:31; Status DC Atorvastatin Calcium 20 mg DAILY PO; Start 07/20/25 at 09:00; Stop 08/19/25 at 08:59 CALIN RUVALCABA MD Jul 19, 2025 13:36
--- NOTE | 2025-07-19 15:04 | PN ---
[facility] PROGRESS NOTE Date Patient Seen: Jul 19, 2025 Time of Visit: 1157 Supervising Physician: Dr. Dean Primary Care Physician: Tank Ramos MD Outpatient Specialists: [ ] Inpatient Consults: [facility] PROBLEM LIST: Hypertensive emergency, POA, resolved Acute CVA ruled out Paresthesia to left side POA resolved Obesity BMI 42.0 Suspected JOYCE STOP-BANG Score 4 points ( High risk) History of gastric bypass surgery, gastric sleeve, INTERVAL HISTORY: Pt is awake alert and oriented. No major overnight events. Labs unremarkable. Pt reports left arm paraesthesia to left arm but no focal weakness. CT cervical spine ordered by primary team. She is hemodynamically stable. Blood pressures are better controlled. Lisinopril has been increased to 10 mg PO BID per cardiology team. CCTA ordered per cardiology team and pending. 07/19 patient was seen and examined at bedside with family present. Patient is awake alert able to answer simple questions appropriately. Patient denies any chest pain or shortness of breadth. Denies any nausea vomiting or abdominal pain. Remains on room air is tolerating well. Patient's blood pressure has remained stable. We will continue to follow recommendations from Cardiology. Patient's MRI was unremarkable. Patient currently pending CT cervical spine along with CT coronary angio we will continue to monitor patient closely and follow up with results. REVIEW OF SYSTEMS: 12 point ROS reviewed with patient. Pertinent positives mentioned above. Otherwise negative. PHYSICAL EXAM: GENERAL: Alert, weak, awake oriented x 3 HEENT: EOMI, Sclera non icteric, moist mucosa NECK: Supple, no JVD, trachea midline LUNGS: Clear breath sounds bilaterally. No wheezes HEART: Regular rate and rhythm. Normal S1 and S2, without murmurs ABD: Abdomen soft, nontender. Bowel sounds present EXT: No clubbing cyanosis or edema NEURO: Alert and oriented to person, follows commands Vital Signs (last 8hr) Date Time Temp Pulse Resp B/P (MAP) Pulse Ox O2 Delivery O2 Flow Rate FiO2 07/19/25 12:00 98.2 60 18 128/86 97 Room Air 07/19/25 09:00 Room Air* 0 21 07/19/25 08:00 98.1 59 18 162/87 96 Room Air LABS: Hematology Labs: Test 07/19/25 04:16 Range/Units White Blood Count 9.6 4.8-10.8 K/uL Red Blood Count 4.60 4.00-5.50 MIL/uL Hemoglobin 15.5 12.0-16.0 g/dL Hematocrit 44.6 36-48 % Mean Corpuscular Volume 97.0 79-99 fL Mean Corpuscular Hemoglobin 33.7 H 27.0-33.0 pg Mean Corpuscular Hemoglobin Concent 34.8 32.0-36.0 g/dL Red Cell Distribution Width 12.2 11.0-15.5 % Platelet Count 221 130-400 K/uL Mean Platelet Volume 10.6 H 7.5-10.5 fL Immature Granulocyte % (Auto) 0.3 0-1 % Neutrophils (%) (Auto) 50.6 40.0-77.0 % Lymphocytes (%) (Auto) 37.3 21.0-51.0 % Monocytes (%) (Auto) 7.9 3.0-13.0 % Eosinophils (%) (Auto) 3.5 0.0-8.0 % Basophils (%) (Auto) 0.4 0.0-5.0 % Neutrophils # (Auto) 4.8 1.8-7.7 K/uL Lymphocytes # (Auto) 3.6 1.0-4.8 K/uL Monocytes # (Auto) 0.8 0.1-1.0 K/uL Eosinophils # (Auto) 0.34 0.00-0.70 K/uL Basophils # (Auto) 0.04 0.00-0.20 K/uL Absolute Immature Granulocyte (auto 0.03 0-1 K/uL Nucleated Red Blood Cells 0.0 0.0-0.19 % Chemistry Labs: Test 07/19/25 04:16 07/18/25 04:24 Range/Units Sodium Level 143 136-145 mmol/L Potassium Level 4.5 3.5-5.1 mmol/L Chloride Level 106 101-111 mmol/L Carbon Dioxide Level 30 21-32 mmol/L Blood Urea Nitrogen 12 7-18 mg/dL Creatinine 0.7 0.5-1.0 mg/dL Glomerular Filtration Rate Calc 102 >90 mL/min Random Glucose 125 H 70-105 mg/dL Total Calcium 9.1 8.5-10.1 mg/dL Triglycerides Level 97 30-200 mg/dL Cholesterol Level 155 <200 mg/dL LDL Cholesterol 101 H 0-99 mg/dL HDL Cholesterol 42 35-85 mg/dL DIAGNOSTICS / RADIOLOGY RESULTS: na PLAN MRI of the brain shows: -No acte intracranial findings. -Chronic small vessel ischemic changes in bilateral fronto-parietal subcortical white matter.CTA head and neck WNL CT head without contrast shows left mastoiditis lisinopril 10 mg po bid Hydralazine PRN IVP Enalapril PRN IVP Holding off on beta chioma due to episodes of bradycardia in the 50s Arrange outpatient pulmonology referral for sleep study, PFT and follow-up management upon discharge Continue to follow cardiology recommendations NEURO: Minimize central acting medications as possible. Maintain fall precautions, adequate lighting during the day PULMONARY: Supplemental 02 as needed. Maintain aspiration precautions at all times CARDIOVASCULAR: Follow hemodynamics. Vital signs per facility protocol GI & NUTRITION: Continue with nutritional support. Continue stool softeners and laxatives as needed. KIDNEYS & ELECTROLYTES: Strict monitoring of intake, output and overall fluid balance. Avoid nephrotoxic medications to the extent possible. Medications to be dosed according to renal function. Monitor electrolytes and replace as needed ENDOCRINE: Maintain blood glucose between 100-180 at all times. Hypoglycemia protocol in place INFECTIOUS DISEASE: Trend temperature, WBC and procalcitonin level Follow cultures, deescalate antibiotics as soon as possible. Panculture if new onset fever ONCOLOGY/HEMATOLOGY/COAGULATION: Monitor for s/s of bleeding Monitor hemoglobin, coagulation studies as needed SKIN: Pressure ulcer prevention per facility protocol Specialty mattress ORTHO/REHAB: Continue PT/OT Prophylaxis: Continue GI and DVT prophylaxis Code Status: Full Resuscitation Disposition: TBD Other: Case discussed with supervising physician plan of care agreed upon DULCE CHAVIS Jul 19, 2025 15:04
[2025-07-19] MEDS: LISINOPRIL 10 MG TABLET PO SCH (20:18)
[2025-07-20] VITALS (7 sets, daily range): BP systolic 139–177; BP diastolic 75–92; PULSE 60–106; RESP 18–19; TEMP 97.7–99.1; O2SAT 0–97
[2025-07-20 04:40] LABS: IMMATURE GRANULOCYTE ABSOLUTE 0.02 K/uL (0-1); NUCLEATED RED BLOOD CELLS 0.0 % (0.0-0.19); PLATELET COUNT (AUTO) 223 K/uL (130-400); RED BLOOD CELL COUNT(AUTO) 4.49 MIL/uL (4.00-5.50); RED CELL DISTRIBUTION WIDTH 12.1 % (11.0-15.5); WHITE BLOOD COUNT (AUTO) 8.4 K/uL (4.8-10.8)
[2025-07-20 04:58] LABS: CREATININE 0.6 mg/dL (0.5-1.0); GLOMERULAR FILTR. RATE CALC 106.0 mL/min (>90); GLUCOSE,RANDOM 132.0 mg/dL (70-105); SODIUM SERUM 142.0 mmol/L (136-145); UREA NITROGEN, BLOOD 14.0 mg/dL (7-18)
[2025-07-20] MEDS: LISINOPRIL 20 MG TABLET PO SCH (08:42)
--- NOTE | 2025-07-20 13:42 | PN ---
[facility] PROGRESS NOTE Date Patient Seen: Jul 20, 2025 Time of Visit: 1153 Supervising Physician: Dr. Cardozo Primary Care Physician: Tank Ramos MD Outpatient Specialists: [ ] Inpatient Consults: [facility] PROBLEM LIST: Hypertensive emergency, POA, resolved Acute CVA ruled out Paresthesia to left side POA resolved Obesity BMI 42.0 Suspected JOYCE STOP-BANG Score 4 points ( High risk) History of gastric bypass surgery, gastric sleeve, INTERVAL HISTORY: Pt is awake alert and oriented. No major overnight events. Labs unremarkable. Pt reports left arm paraesthesia to left arm but no focal weakness. CT cervical spine ordered by primary team. She is hemodynamically stable. Blood pressures are better controlled. Lisinopril has been increased to 10 mg PO BID per cardiology team. CCTA ordered per cardiology team and pending. 07/19 patient was seen and examined at bedside with family present. Patient is awake alert able to answer simple questions appropriately. Patient denies any chest pain or shortness of breadth. Denies any nausea vomiting or abdominal pain. Remains on room air is tolerating well. Patient's blood pressure has remained stable. We will continue to follow recommendations from Cardiology. Patient's MRI was unremarkable. Patient currently pending CT cervical spine along with CT coronary angio we will continue to monitor patient closely and follow up with results. 07/20 patient was seen and examined at bedside with no family present. At time of visit patient has no specific complaints. Remains on room air is tolerating well. Denies any chest pain or shortness of breadth. Has remained hemodynamically stable. sHe is tolerating p.o. diet. Denies any nausea vomiting abdominal pain. Dispo per primary team. From a pulmonary standpoint patient has remained stable therefore pulmonology to sign off feel free to reconsult any change in condition thank you for allowing us to participate in e care of this patient REVIEW OF SYSTEMS: 12 point ROS reviewed with patient. Pertinent positives mentioned above. Otherwise negative. PHYSICAL EXAM: GENERAL: Alert, weak, awake oriented x 3 HEENT: EOMI, Sclera non icteric, moist mucosa NECK: Supple, no JVD, trachea midline LUNGS: Clear breath sounds bilaterally. No wheezes HEART: Regular rate and rhythm. Normal S1 and S2, without murmurs ABD: Abdomen soft, nontender. Bowel sounds present EXT: No clubbing cyanosis or edema NEURO: Alert and oriented to person, follows commands Vital Signs (last 8hr) Date Time Temp Pulse Resp B/P (MAP) Pulse Ox O2 Delivery O2 Flow Rate FiO2 07/20/25 12:00 99.1 96 18 149/91 100 Room Air 07/20/25 08:00 0 Room Air* 0 21 07/20/25 08:00 98.2 106 18 146/76 97 LABS: Hematology Labs: Test 07/20/25 04:11 Range/Units White Blood Count 8.4 4.8-10.8 K/uL Red Blood Count 4.49 4.00-5.50 MIL/uL Hemoglobin 15.0 12.0-16.0 g/dL Hematocrit 43.6 36-48 % Mean Corpuscular Volume 97.1 79-99 fL Mean Corpuscular Hemoglobin 33.4 H 27.0-33.0 pg Mean Corpuscular Hemoglobin Concent 34.4 32.0-36.0 g/dL Red Cell Distribution Width 12.1 11.0-15.5 % Platelet Count 223 130-400 K/uL Mean Platelet Volume 10.7 H 7.5-10.5 fL Immature Granulocyte % (Auto) 0.2 0-1 % Neutrophils (%) (Auto) 52.4 40.0-77.0 % Lymphocytes (%) (Auto) 34.5 21.0-51.0 % Monocytes (%) (Auto) 8.2 3.0-13.0 % Eosinophils (%) (Auto) 4.2 0.0-8.0 % Basophils (%) (Auto) 0.5 0.0-5.0 % Neutrophils # (Auto) 4.4 1.8-7.7 K/uL Lymphocytes # (Auto) 2.9 1.0-4.8 K/uL Monocytes # (Auto) 0.7 0.1-1.0 K/uL Eosinophils # (Auto) 0.35 0.00-0.70 K/uL Basophils # (Auto) 0.04 0.00-0.20 K/uL Absolute Immature Granulocyte (auto 0.02 0-1 K/uL Nucleated Red Blood Cells 0.0 0.0-0.19 % Chemistry Labs: Test 07/20/25 04:11 Range/Units Sodium Level 142 136-145 mmol/L Potassium Level 4.2 3.5-5.1 mmol/L Chloride Level 105 101-111 mmol/L Carbon Dioxide Level 28 21-32 mmol/L Blood Urea Nitrogen 14 7-18 mg/dL Creatinine 0.6 0.5-1.0 mg/dL Glomerular Filtration Rate Calc 106 >90 mL/min Random Glucose 132 H 70-105 mg/dL Total Calcium 9.2 8.5-10.1 mg/dL DIAGNOSTICS / RADIOLOGY RESULTS: na PLAN Pulmonology to sign off feel free to reconsult with any change in respiratory deconditioned thank you for allowing us to participate in the care of this patient MRI of the brain shows: -No acte intracranial findings. -Chronic small vessel ischemic changes in bilateral fronto-parietal subcortical white matter.CTA head and neck WNL CT head without contrast shows left mastoiditis lisinopril 10 mg po bid Hydralazine PRN IVP Enalapril PRN IVP Holding off on beta chioma due to episodes of bradycardia in the 50s Arrange outpatient pulmonology referral for sleep study, PFT and follow-up management upon discharge Continue to follow cardiology recommendations NEURO: Minimize central acting medications as possible. Maintain fall precautions, adequate lighting during the day PULMONARY: Supplemental 02 as needed. Maintain aspiration precautions at all times CARDIOVASCULAR: Follow hemodynamics. Vital signs per facility protocol GI & NUTRITION: Continue with nutritional support. Continue stool softeners and laxatives as needed. KIDNEYS & ELECTROLYTES: Strict monitoring of intake, output and overall fluid balance. Avoid nephrotoxic medications to the extent possible. Medications to be dosed according to renal function. Monitor electrolytes and replace as needed ENDOCRINE: Maintain blood glucose between 100-180 at all times. Hypoglycemia protocol in place INFECTIOUS DISEASE: Trend temperature, WBC and procalcitonin level Follow cultures, deescalate antibiotics as soon as possible. Panculture if new onset fever ONCOLOGY/HEMATOLOGY/COAGULATION: Monitor for s/s of bleeding Monitor hemoglobin, coagulation studies as needed SKIN: Pressure ulcer prevention per facility protocol Specialty mattress ORTHO/REHAB: Continue PT/OT Prophylaxis: Continue GI and DVT prophylaxis Code Status: Full Resuscitation Disposition: TBD Other: Case discussed with supervising physician plan of care agreed upon DULCE CHAVIS Jul 20, 2025 13:41
[2025-07-20 13:55] LABS: % IRON SATURATION 37.9 % (22-44); IRON, SERUM 115.0 mcg/dL (50-170)
--- NOTE | 2025-07-20 14:41 | PN ---
[facility] PROGRESS NOTE Date of Service: Jul 20, 2025 Time of Service: 9:00 SUBJECTIVE: H and P: This is a 55-year-old female with past medical history of gastric bypass surgery, gastric who presented to the hospital secondary to paresthesias on the left upper and lower extremity associated with heaviness, headache since yesterday. She was able to ambulate and denied any dysphagia, slurred speech, word-finding difficulty. She denied any upper extremity and lower extremity weakness, changes in her appetite, nausea, vomiting, abdominal pain, shortness of breath, chest pain. She does state she had an episode of abdominal pain yesterday which resolved without intervention. She does take multivitamins at home but denies any previous history of hypertension. She currently does not take any antihypertensives at home. She did complain of left facial paresthesias but denied any vision changes, swallowing difficulties. Her symptoms improved after she came to the hospital. Labs in the ED were notable for white count of 9.1, hemoglobin was 15.5, MCV was 99.1, platelet count was 201 K, sodium was 144, potassium was 3.8, creatinine was 0.6, troponin was negative x1, LDL cholesterol was 96. Patient underwent a chest x-ray which showed no acute abnormality. CT head showed no intracranial findings and mild left-sided mastoiditis, head and neck CT angiogram showed no acute significant stenosis. Tele neurology was consulted in the ED and patient was noted to have NIH stroke scale of one. She was deemed not to be a candidate for tPA. 07/17/2025 Patient is seen and examined at the bedside. Vitals blood pressure ranging in 150s to 170s/80s to 90s, Telemetry showed sinus rhythm. She reported a resolved episode of facial numbness last night. She currently has tension type headaches without eye pain, tearing or photophobia. Her numbness and tingling sensations in the left upper and lower extremities have resolved. She reports occasional left upper extremity numbness and tingling over the past few years. She denies fever, chills, neck pain, nausea, vomiting, chest pain, palpitations, difficulty in breathing, back pain, weakness in upper and lower extremities. Labs CBC, BMP unremarkable,Procalcitonin less than 0.05, TSH 1.19, HbA1c 6.1, t roponins 11, LDL 96, ESR 16, CRP 0.51. MRI brain revealed no acute intracranial findings and Chronic small vessel ischemic changes in bilateral fronto-parietal subcortical white matter. 2D echo showed LVEF of >70% and no valvular abnormalities. 07/18/25: Patient is seen and examined at the bedside in room 216. Vitals blood pressure ranging in 140s/70s to 150s/90s, Telemetry showed sinus rhythm. She reported numbness in her left arm. Patient complaints of neck pain. She denies fever, chills, neck pain, nausea, vomiting, chest pain, palpitations, difficulty in breathing, back pain, weakness in upper and lower extremities. Labs CBC, BMP unremarkable,Procalcitonin less than 0.05, TSH 1.19, HbA1c 6.1, troponins 11, LDL 96, ESR 16, CRP 0.51. MRI brain revealed no acute intracranial findings and Chronic small vessel ischemic changes in bilateral fronto-parietal subcortical white matter. 2D echo showed LVEF of >70% and no valvular abnormalities. Coronary angiography Ct was ordered, awaiting results. Ordered CT cervical spine, will follow up with results. 07/19/25: Patient is seen and examined at the bedside in room 426. She reports of having another episode of left sided numbness in her left upper extremity, lower extremity and left side of face today in the morning around 8 AM. After the episode she noticed decreased motor strength in graasping things for like 10 minutes. She also noticed her blood pressure rise to 162/87 during the episode. Labs CBC, BMP unremarkable,Procalcitonin less than 0.05, TSH 1.19, HbA1c 6.1, troponins 11, LDL 96, ESR 16, CRP 0.51. MRI brain revealed no acute intracranial findings and Chronic small vessel ischemic changes in bilateral fronto-parietal subcortical white matter. 2D echo showed LVEF of >70% and no valvular abnormalities. Coronary angiography Ct was ordered, results were unremarkable without any evidence of stenosis. Ordered CT cervical spine, will follow up with results. 07/20/25: Patient is seen and examined at the bedside in room 426. She seems anxious and states that she had an episode of left sided numbness in her left upper extremity, lower extremity and left side of face in the morning. She states that she has had gastric surgery twice in the past and she is on multivitamins. She denies any gross motor weakness during the numbness episode. Proprioception is intact in the lower extremities bilaterally. Patient does report having headaches but she states they are not migraines and more tension oriented. Her inflammatory markers have been unremarkable. We are still pending on the cervical spine CT results. After adjusting her lisinopril, her blood pressure is 158/78 this morning. We will continue to monitor it. REVIEW OF SYSTEMS CONSTITUTIONAL: Denies fevers, chills, or night sweats. No unintentional weight loss reported. NEUROLOGICAL: Denies headache, motor weakness, gait abnormalities, or tremors. Positive for intermittent paresthesias in the left upper and lower extremity ENT: No hearing loss, otalgia, otorrhea, rhinitis, rhinorrhea, hoarseness, or sore throat. CARDIOVASCULAR: Denies any exertional angina, dyspnea on exertion, orthopnea, paroxysmal nocturnal dyspnea, palpitations, life-threatening arrhythmias, claudication. PULMONARY: Denies any shortness of breath, cough, phlegm/sputum, hemoptysis, pleuritic chest pain. GASTROINTESTINAL: Denies any type of dysphagia to either liquids or solids. Denies nausea, vomiting, pyrosis, early satiety, abdominal pain, diarrhea, constipation, or changes in stool consistency or caliber. Denies coffee-ground emesis, hematemesis, hematochezia, or melanotic stools. GENITOURINARY: Denies frequency, urgency, nocturia, hematuria or incontinence (Storage/Irritative symptoms ENDOCRINOLOGIC: Denies polyuria, polydipsia, polyphagia or heat/cold intolerances. HEMATOLOGIC: Denies thrombophilia/previous clots, or coagulopathy/bleeding disorders. ONCOLOGIC: Denies personal history of malignancy. DERMATOLOGIC: Denies rashes or pruritus. PSYCHIATRIC: Denies any suicidal or homicidal ideation. Denies hallucinations. PHYSICAL EXAM GENERAL APPEARANCE: The patient is awake, alert, and oriented, in no acute cardiopulmonary distress. NEUROLOGICAL: Cranial nerves II-XII grossly intact. Motor is 5/5 in bilateral upper and lower extremities proximal to distal. No sensory deficits. HEENT: Face is symmetric. Pupils are equal and reactive. Extraocular movements are intact. NECK: Supple. No JVD. No thyromegaly. No submental, submandibular, pre- /postauricular, occipital or supraclavicular lymphadenopathy. CHEST: Normal chest expansion LUNGS: Absence of any rales, rhonchi or any wheezing. CARDIOVASCULAR: Regular. S1 and S2 normal. No appreciable rubs, murmurs or gallops. ABDOMEN: Soft, nontender, and nondistended. There is no rebound, voluntary guarding, or rigidity. : Deferred. No Wagner. EXTREMITIES: Non-edematous and not cyanotic. No clubbing. Good capillary refill. SKIN: No skin breakdown. Vital Signs (last 8hr) Date Time Temp Pulse Resp B/P (MAP) Pulse Ox O2 Delivery O2 Flow Rate FiO2 07/20/25 12:00 99.1 96 18 149/91 100 Room Air 07/20/25 08:00 0 Room Air* 0 21 07/20/25 08:00 98.2 106 18 146/76 97 LABS: Laboratory: Test 07/20/25 13:19 07/20/25 04:11 Range/Units Iron Level 115 50-170 mcg/dL Total Iron Binding Capacity 303 250-450 mcg/dL Percent Iron Saturation 37.9 22-44 % White Blood Count 8.4 4.8-10.8 K/uL Red Blood Count 4.49 4.00-5.50 MIL/uL Hemoglobin 15.0 12.0-16.0 g/dL Hematocrit 43.6 36-48 % Mean Corpuscular Volume 97.1 79-99 fL Mean Corpuscular Hemoglobin 33.4 H 27.0-33.0 pg Mean Corpuscular Hemoglobin Concent 34.4 32.0-36.0 g/dL Red Cell Distribution Width 12.1 11.0-15.5 % Platelet Count 223 130-400 K/uL Mean Platelet Volume 10.7 H 7.5-10.5 fL Immature Granulocyte % (Auto) 0.2 0-1 % Neutrophils (%) (Auto) 52.4 40.0-77.0 % Lymphocytes (%) (Auto) 34.5 21.0-51.0 % Monocytes (%) (Auto) 8.2 3.0-13.0 % Eosinophils (%) (Auto) 4.2 0.0-8.0 % Basophils (%) (Auto) 0.5 0.0-5.0 % Neutrophils # (Auto) 4.4 1.8-7.7 K/uL Lymphocytes # (Auto) 2.9 1.0-4.8 K/uL Monocytes # (Auto) 0.7 0.1-1.0 K/uL Eosinophils # (Auto) 0.35 0.00-0.70 K/uL Basophils # (Auto) 0.04 0.00-0.20 K/uL Absolute Immature Granulocyte (auto 0.02 0-1 K/uL Nucleated Red Blood Cells 0.0 0.0-0.19 % Sodium Level 142 136-145 mmol/L Potassium Level 4.2 3.5-5.1 mmol/L Chloride Level 105 101-111 mmol/L Carbon Dioxide Level 28 21-32 mmol/L Blood Urea Nitrogen 14 7-18 mg/dL Creatinine 0.6 0.5-1.0 mg/dL Glomerular Filtration Rate Calc 106 >90 mL/min Random Glucose 132 H 70-105 mg/dL Total Calcium 9.2 8.5-10.1 mg/dL Current Medications Medications (Trade) Dose Ordered Sig/Sanjiv Route PRN Reason Start Time Stop Time Status Last Admin Dose Admin Acetaminophen (TYLenol 500MG TAB) 500 mg Q6H PRN PO MILD PAIN (1-3) 07/16/25 16:30 08/15/25 16:29 Alprazolam (XANax 0.5MG) 0.5 mg ONCE PRN PO OTHER [SEE ORDER COMMENTS] 07/17/25 10:00 Aspirin (Aspirin 81mg Ec Tab) 81 mg DAILY PO 07/17/25 09:00 08/16/25 08:59 07/20/25 08:42 81 MG Atorvastatin Calcium (LIPItor 20MG) 20 mg DAILY PO 07/20/25 09:00 08/19/25 08:59 07/20/25 08:42 20 MG Enalaprilat (Vasotec Iv) 1.25 mg Q6H PRN IVP SBP > 180 07/17/25 15:30 08/16/25 15:29 Famotidine (Pepcid 20mg Vial) 20 mg BID IV 07/16/25 21:00 07/18/25 09:11 DC 07/17/25 21:52 20 MG Famotidine (Pepcid 20mg Tab) 20 mg BID PO 07/18/25 09:30 08/17/25 09:29 07/20/25 08:42 20 MG Hydralazine HCl (APRESOLine 20MG INJ) 10 mg Q4H PRN IV FOR SYSTOLIC BP > 160 07/18/25 00:00 08/15/25 16:29 07/19/25 18:06 10 MG Hydralazine HCl (APRESOLine 20MG INJ) 10 mg Q6H PRN IV ADMINISTER FOR BP > 220/120 07/16/25 16:30 07/17/25 21:24 DC Lisinopril (Prinivil 10mg) 10 mg BID PO 07/18/25 09:00 07/19/25 18:59 DC 07/19/25 08:02 10 MG Lisinopril (Prinivil 10mg) 10 mg DAILY PO 07/18/25 09:00 07/17/25 20:55 DC Lisinopril (Prinivil 10mg) 10 mg DAILY PO 07/18/25 09:00 07/17/25 21:40 DC Lisinopril (Prinivil 10mg) 10 mg PM PO 07/19/25 21:00 08/18/25 20:59 07/19/25 20:18 10 MG Lisinopril (Prinivil 20mg) 20 mg AM PO 07/20/25 09:00 08/19/25 08:59 07/20/25 08:42 20 MG Magnesium Oxide (Mag-Ox) 400 mg DAILY PO 07/21/25 09:00 08/20/25 08:59 Ondansetron HCl (zoFRAN 4MG INJ) 4 mg Q6H PRN IVP NAUSEA/VOMITING 07/16/25 16:30 08/15/25 16:29 Zinc Sulfate (Zinc Sulfate 220 Cap) 220 mg DAILY PO 07/21/25 09:00 08/20/25 08:59 DIAGNOSTICS / RADIOLOGY: RAD REPORT: CORNARY CT ANGIO RADIOLOGY REPORT: CORONARY CT ANGIOGRAPHY DATE: Jul 19, 2025 QUALITY: Excellent CLINICAL HISTORY AND INDICATION: TECHNIQUE: After obtaining a preliminary district resource officer image, contrast imaging performed on an [employer] [id number] scanner. A dedicated, limited window, coronary imaging protocol was used, with single breath-hold, retrospective ECG gating, and automated arrhythmia rejection. 100 cc of low osmolar contrast agent: Omnipaque 350 was delivered via a 18-gauge IV catheter in the right antecubital fossa, using a power injector and followed by 60 cc of normal saline bolus as a chaser. Collimated images were reformatted at 0.5 mm intervals, and sent to an offline independent workstation for interpretation, using 3D anatomic reconstructions: Curved multiplanar reconstructions, maximum intensity projections, and multiplanar imaging. No metoprolol was administered prior to scanning due to low baseline heart rate. 0.4 mg SL nitroglycerin was given. CORONARY ARTERY DESCRIPTIONS: The coronary arteries arise in normal position. Left main coronary artery: Normal caliber vessel that bifurcates into the LAD and LCx. No stenosis. Left anterior descending coronary artery: Normal caliber vessel and gives rise to diagonal and septal branches. No stenosis. Left circumflex coronary artery: Normal caliber, nondominant and gives rise to a large OM branch. No stenosis. Right coronary artery: Large, dominant vessel giving rise to the PL and PDA b ranches. No stenosis. CONCLUSION Negative coronary CTA without evidence of significant stenosis CALIN RUVALCABA MD Jul 19, 2025 06:51 ASSESSMENT: Left-sided upper and lower extremity paresthesia differential: Acute stroke versus TIA versus symptoms secondary to hypertensive emergency Suspected stroke versus TIA, POA Hypertensive emergency POA Post gastric bypass/gastric sleeve status Mild Left sided mastoiditis, as per CT head on 07/16 Obesity BMI 42.0 Suspected Obstructive sleep apnea Sinus arrhythmia, RBBB and LAFB on EKG [07/16], POA Tension type headache, POA Chronic small vessel ischemic changes on MRI HTN Hyperlipidemia PLAN: Hypertensive emergency POA Currently blood pressure ranging in 150s/70s to 160s/90s. Patient's lisinopril dose was adjusted with 20 mg in the morning and 10 mg in the evening. Continue IV antihypertensives PRN, as directed Monitor vitals every 4 hours Left-sided upper and lower extremity paresthesia Initial Differential: Acute stroke versus TIA versus symptoms secondary to hypertensive emergency CT head showed no acute abnormalities and mild left mastoiditis, CTA head and neck revealed no acute abnormalities, MRI brain revealed no acute abnormalities and showed chronic small-vessel ischemic changes in bilateral fronto-parietal subcortical white matter Acute stroke ruled out ESR-16, CRP-<0.[address] was ordered, results were unremarkable without any evidence of stenosis. Ordered CT cervical spine, waiting for report. Neurology is consulted and we will follow their recommendations Continue neuro checks every 4 hours We will start Aspirin 81mg daily PT/ST/OT B12, folate, thiamine levels were ordered given her history of bariatric surgery. Vitamin B12- 1040. Patient is started on zinc and magnesium today. Follow up with nutrition evaluation request. Headaches, POA Not associated with tearing of eyes, eye pain, photosensitivity, facial/temporal tenderness Likely stress related or secondary to fatigue Continue acetaminophen p.r.n. as needed We will monitor any changes in pattern/severity or frequency Post gastric bypass/sleeve surgery status We will consult nutrition for comprehensive supplementation plan insulin patient is started on magnesium and zinc. Vitamin B12- 1040. Follow up with serum folate levels. Follow up with iron panel studies Mild mastoiditis, left-sided No fever no pain noted, asymptomatic No need for IV antibiotics We will observe for any new symptoms for now Chronic small vessel ischemic changes on MRI Likely age related or secondary to chronic hypertension Sinus arrhythmia, RBBB and LAFB on EKG [07/16], POA Telemetry shows sinus rhythm currently Cardiology is consulted and we will follow their recommendations Continue monitoring for arrhythmia syncope or palpitations 2D echo showed preserved LV function with EF greater than 70% Hyperlipemia * Patient ASCVD score 7.8, LDL - 101 * Patient was started on moderate intensity statin, atorvastatin 20 mg. ATTESTATION BY PHYSICIAN I have seen and examined the patient. I reviewed the documentation, medical decision making, and treatment plan as noted by the resident physician above. I agree with the findings and plan of care. ROSANNE LAURENT MD, MUHAMMAD H MD Jul 20, 2025 14:41
--- NOTE | 2025-07-20 16:01 | PN ---
CARDIOLOGY Reason for consult: Left arm numbness HPI/story at presentation: This is a pleasant 55-year-old female with past medical history of lupus with complaints of atypical chest discomfort, left arm numbness, facial numbness Eskandar being worked up for possible CVA/TIA. Cardiology was consulted for further evaluation management Past medical history: See below Allergies, Meds See chart Review of systems Review of Systems Constitutional: Negative for chills and fever. HENT: Negative for ear discharge and ear pain. Eyes: Negative for photophobia and discharge. Respiratory: Negative for cough, sputum production and stridor. Cardiovascular: Negative for chest pain and palpitations. Gastrointestinal: Negative for diarrhea and vomiting. Genitourinary: Negative for frequency. Musculoskeletal: Negative for myalgias. Skin: Negative for rash. Neurological: Negative for focal weakness and seizures. Endo/Heme/Allergies: Negative for polydipsia. Psychiatric/Behavioral: Negative for hallucinations. Vitals see chart PHYSICAL EXAMINATION GENERAL: The patient is alert and oriented*3 HEENT: Nonicteric sclerae, non traumatic HEART: Regular rate and rhythm with no murmurs LUNGS: Clear to auscultation bilaterally ABDOMEN: No acute issues, non tender GENITAL, RECTAL: deferred SKIN: No rash NEUROLOGIC: NFND EXTREMITIES: No edema ASSESSMENT LEFT-SIDED NUMBNESS, WEAKNESS TIA/CVA being worked up, 07/16/2025 Echocardiogram, bubble study was negative for any abnormalities, MRI was also negative. PREVIOUS HISTORY OF GASTRIC BYPASS, OBESITY, SLEEP APNEA HYPERTENSION With urgency at presentation CORE MEASURES Pending OTHER MEDICAL PROBLEMS Reviewed PLAN 07/16/2005/28/2025 echocardiogram has been ordered to further evaluate for possible wall source of emboli. MRI is also pending to evaluate for CVA. Numbness has improved. Seen and examined 07/16/2025 around 9 PM. 07/17/2025 Neurological workup has been negative. Blood pressures are better. Will need to rule out cardiac etiology of jaw and left arm pain. Will get a CTA coronary tomorrow. Risk benefits addressed. MRI was negative. Seen and examined 07/17/2025 at around 8 PM. 07/18/2025 no active cardiac complaints, did have another episode of left-sided arm numbness, facial numbness and tingling in her tongue. CT spine has been ordered and pending, will await results. Potentially, spinal issues versus complex migraine in the differential. No coronary etiology identified. Seen and examined 07/19/2025 at around 1:30 PM. 07/19/2025 no active cardiac complaints at this time, continues have issues with numbness of the left sided face tongue and arm. Cervical spine CT has been ordered and is pending. No active cardiovascular issues, CTA coronary was negative. Consider complicated migraine? If CT is negative. Seen and examined 07/20/2025 at around 1600. ATTESTATION I was involved substantially in the care of this patient Number and complexity of problems addressed: 1 acute illness with systemic features Amount and or complexity of data Review of prior external note(s) from each unique source: 2+ Ordering of each unique test : 0 Review of the result(s) of each unique test: 2+ Assessment requiring an independent historian(s): No Independent interpretation of test performed by another MD/QHCP/appropriate source (not separately reported) : No Discussion of management or test interpretation with external MD/QHCP/appropriate source (not separately reported) : No Risk status (cardiac, billing related): Moderate Vitals/Labs Vital Signs Date Time Temp Pulse Resp B/P (MAP) Pulse Ox O2 Delivery O2 Flow Rate FiO2 07/20/25 12:00 99.1 96 18 149/91 100 Room Air 07/20/25 08:00 0 21 Laboratory Tests 07/20/25 04:11 Medications Current Medications Hydralazine HCl 10 mg ONCE ONCE IV Last administered on 07/16/25at 16:03; Start 07/16/25 at 14:30; Stop 07/16/25 at 14:31; Status DC Aspirin 325 mg ONCE ONCE PO Last administered on 07/16/25at 16:03; Start 07/16/25 at 14:30; Stop 07/16/25 at 14:31; Status DC Iohexol 75 ml STK-MED ONCE IV; Start 07/16/25 at 14:13; Stop 07/16/25 at 14:13; Status DC Iohexol 75 ml STK-MED ONCE IV; Start 07/16/25 at 14:17; Stop 07/16/25 at 14:17; Status DC Famotidine 20 mg BID IV Last administered on 07/17/25at 21:52; Start 07/16/25 at 21:00; Stop 07/18/25 at 09:11; Status DC Hydralazine HCl 10 mg Q6H PRN IV; Start 07/16/25 at 16:30; Stop 07/17/25 at 21:24; Status DC Acetaminophen 500 mg Q6H PRN PO; Start 07/16/25 at 16:30; Stop 08/15/25 at 16:29 Ondansetron HCl 4 mg Q6H PRN IVP; Start 07/16/25 at 16:30; Stop 08/15/25 at 16:29 Aspirin 81 mg DAILY PO Last administered on 07/20/25at 08:42; Start 07/17/25 at 09:00; Stop 08/16/25 at 08:59 Lisinopril 10 mg DAILY PO; Start 07/18/25 at 09:00; Stop 07/17/25 at 20:55; Status DC Alprazolam 0.5 mg ONCE PRN PO; Start 07/17/25 at 10:00 Lisinopril 10 mg ONCE ONCE PO Last administered on 07/17/25at 10:10; Start 07/17/25 at 10:00; Stop 07/17/25 at 10:01; Status DC Enalaprilat 1.25 mg Q6H PRN IVP; Start 07/17/25 at 15:30; Stop 08/16/25 at 15:29 Lisinopril 10 mg DAILY PO; Start 07/18/25 at 09:00; Stop 07/17/25 at 21:40; Status DC Hydralazine HCl 10 mg Q4H PRN IV Last administered on 07/19/25at 18:06; Start 07/18/25 at 00:00; Stop 08/15/25 at 16:29 Lisinopril 10 mg BID PO Last administered on 07/19/25at 08:02; Start 07/18/25 at 09:00; Stop 07/19/25 at 18:59; Status DC Lisinopril 10 mg ONCE ONCE PO Last administered on 07/17/25at 21:52; Start 07/17/25 at 22:00; Stop 07/17/25 at 22:01; Status DC Famotidine 20 mg BID PO Last administered on 07/20/25at 08:42; Start 07/18/25 at 09:30; Stop 08/17/25 at 09:29 Iohexol 35,000 mg STK-MED ONCE IV; Start 07/18/25 at 09:18; Stop 07/18/25 at 09:18; Status DC Metoprolol Tartrate 5 mg STK-MED ONCE IV; Start 07/18/25 at 09:31; Stop 07/18/25 at 09:31; Status DC Atorvastatin Calcium 20 mg DAILY PO Last administered on 07/20/25at 08:42; Start 07/20/25 at 09:00; Stop 08/19/25 at 08:59 Lisinopril 20 mg AM PO Last administered on 07/20/25at 08:42; Start 07/20/25 at 09:00; Stop 08/19/25 at 08:59 Lisinopril 10 mg PM PO Last administered on 07/19/25at 20:18; Start 07/19/25 at 21:00; Stop 08/18/25 at 20:59 Zinc Sulfate 220 mg DAILY PO; Start 07/21/25 at 09:00; Stop 08/20/25 at 08:59 Magnesium Oxide 400 mg DAILY PO; Start 07/21/25 at 09:00; Stop 08/20/25 at 08:59 CALIN RUVALCABA MD Jul 20, 2025 16:01
[2025-07-21 00:15] VITALS: BP 128/67; PULSE 73; RESP 18; TEMP 98
[2025-07-21 04:08] VITALS: BP 125/67; PULSE 63; RESP 18; TEMP 97.9
[2025-07-21 05:15] LABS: NUCLEATED RED BLOOD CELLS 0.0 % (0.0-0.19); PLATELET COUNT (AUTO) 209.0 K/uL (130-400); RED BLOOD CELL COUNT(AUTO) 4.44 MIL/uL (4.00-5.50); RED CELL DISTRIBUTION WIDTH 12.0 % (11.0-15.5); WHITE BLOOD COUNT (AUTO) 9.4 K/uL (4.8-10.8)
[2025-07-21 05:38] LABS: CREATININE 0.6 mg/dL (0.5-1.0); GLOMERULAR FILTR. RATE CALC 106.0 mL/min (>90); GLUCOSE,RANDOM 127.0 mg/dL (70-105); SODIUM SERUM 140.0 mmol/L (136-145); UREA NITROGEN, BLOOD 8.0 mg/dL (7-18)
[2025-07-21 07:52] VITALS: BP 134/89; PULSE 68; RESP 20; TEMP 98.1
[2025-07-21] MEDS: MAGNESIUM OXIDE 400 MG TABLET PO SCH (10:30)
[2025-07-21] MEDS: ZINC SULFATE 220 CAPSULE PO SCH (10:30)
[2025-07-21 11:47] VITALS: BP 169/89; PULSE 94; RESP 20; TEMP 97.8
--- NOTE | 2025-07-21 11:57 | NUR ---
RECEIVED VOICEMAIL FROM JACLYN WITH [facility] [employer]; ANY DC NEEDS CALL [phone]
--- NOTE | 2025-07-21 12:00 | NUR ---
PHYSICIAN ROUNDING Dr. Alves and Dr. Topete at bedside. Discharge recommendations for follow up with cardiology, neurology, and PCP discussed. New prescriptions reviewed with patient. Anticipate discharge orders. Addendum: 07/21/25 at 1938 by GEE FONTANEZ RN RN Amended: Links added.
--- NOTE | 2025-07-21 12:30 | NUR ---
PATIENT ASSESSMENT All systems within normal limits with exception to: Patient continues with complaints of numbness/tingling to left side of face, left upper extremity. Patient states that at times the left side of her mouth will droop. Denies history of Fu's Palsy. No history of stroke. Also denies pain or need for pharmacological intervention for relief of symptoms. Patient is adamant about discharge [facility]. Informed patient that nurse would call for follow up appointments recommended by hospitalist; once discharge orders received, will begin working on discharge paperwork within reasonable timeframe of orders received. Patient verbalized understanding.
[2025-07-21] MEDS ORDERED: LISI20TA24 PO (12:54)
[2025-07-21] MEDS ORDERED: AMLO5TAB6 PO (12:54)
--- NOTE | 2025-07-21 13:19 | DS ---
Discharge Summary Hospital Course Summary: Patient Information: *Name: Denton Delvalle *Date of : 70 *Admission Date: 07/16/25 *Discharge Date: 07/21/2025 Attending Physician:Dr Lacho Alves Admitting Diagnosis:Left-sided upper and lower extremity paresthesia differential: Acute stroke versus TIA versus symptoms secondary to hypertensive emergency, Suspected stroke versus TIA, POA Hypertensive emergency POA Course in Hospital: This is a 55-year-old female with past medical history of gastric bypass surgery, gastric who presented to the hospital secondary to paresthesias on the left upper and lower extremity associated with heaviness, headache . She was able to ambulate and denied any dysphagia, slurred speech, word-finding difficulty. She denied any upper extremity and lower extremity weakness, changes in her appetite, nausea, vomiting, abdominal pain, shortness of breath, chest pain. She does state she had an episode of abdominal pain yesterday which resolved without intervention. She does take multivitamins at home but denies any previous history of hypertension. She currently does not take any antihypertensives at home. She did complain of left facial paresthesias but denied any vision changes, swallowing difficulties. Her symptoms improved after she came to the hospital. Labs in the ED were notable for white count of 9.1, hemoglobin was 15.5, MCV was 99.1, platelet count was 201 K, sodium was 144, potassium was 3.8, creatinine was 0.6, troponin was negative x1, LDL cholesterol was 96. Patient underwent a chest x-ray which showed no acute abnormality. CT head showed no intracranial findings and mild left-sided mastoiditis, head and neck CT angiogram showed no acute significant stenosis. Tele neurology was consulted in the ED and patient was noted to have NIH stroke scale of one. She was deemed not to be a candidate for tPA. During her hospitalization patient continued with the symptoms. MRI brain revealed no acute intracranial findings and Chronic small vessel ischemic changes in bilateral fronto-parietal subcortical white matter. 2D echo showed LVEF of >70% and no valvular abnormalities. Coronary angiography CT and CT cervical spine, was ordered. Coronary CT was negative without evidence of sig nificant stenosis. At this time patient's vital signs are stable . Most recent labs. show WBC 4.6 Hb. 7.6 BUN 15 Cr 1.7 Patient continues with episodes of numbness. She is however clinically stable for discharge with close outpatient follow-up: Neurology, cardiology and primary care for chronic medical conditions. She is discharged home in stable conditions. Discussed with the patient and spouse about the need to follow up with neurology since she still has some numbness and with cardiology because of he fluctuating BP. Patient verbalized understanding of instructions. Will send prescriptions : Lisinopril 20mg and Norvasc 5mg to patient's pharmacy of choice. Procedures performed: CBC, CMP, CXR, Blood cultures Medications on Discharge: Lisinopril 20mg daily and Norvasc 5mg daily' Discharge Instructions: *Follow up with your primary care physician in 2 - 3 days after discharge. *Follow up with neurology and cardiology a week after discharge for further evaluation and management. *Continue all medications as prescribed. Do not discontinue or change dosages without consulting your PCP. *Gradually resume normal activities as tolerated. *Continue a balanced diet . Reduce salt intake to help manage BP. *Seek immediate medical attention if you experience chest pain, SOB or severe headache. *Smoking cessation is strongly advised. Resources for quitting smoking are available upon request. Discharged to: Home Condition on Discharge: Stable [employer] Internship(s): Critical care : Tank Ramos MD Neurology: Bradly Rosen MD Procedure(s): CT cervical spine Coronary Angiography Assessment/Plan: ASSESSMENT: Left-sided upper and lower extremity paresthesia differential: Acute stroke versus TIA versus symptoms secondary to hypertensive emergency Suspected stroke versus TIA, POA Hypertensive emergency POA Post gastric bypass/gastric sleeve status Mild Left sided mastoiditis, as per CT head on 07/16 Obesity BMI 42.0 Suspected Obstructive sleep apnea Sinus arrhythmia, RBBB and LAFB on EKG [07/16], POA Tension type headache, POA Chronic small vessel ischemic changes on MRI HTN Hyperlipidemia PLAN: Hypertensive emergency POA Currently blood pressure ranging in 150s/70s to 160s/90s. Patient's lisinopril dose was adjusted with 20 mg in the morning and 10 mg in the evening. Continue IV antihypertensives PRN, as directed Monitor vitals every 4 hours Left-sided upper and lower extremity paresthesia Initial Differential: Acute stroke versus TIA versus symptoms secondary to hypertensive emergency CT head showed no acute abnormalities and mild left mastoiditis, CTA head and neck revealed no acute abnormalities, MRI brain revealed no acute abnormalities and showed chronic small-vessel ischemic changes in bilateral fronto-parietal subcortical white matter Acute stroke ruled out ESR-16, CRP-<0.[address] was ordered, results were unremarkable without any evidence of stenosis. Ordered CT cervical spine, waiting for report. Neurology is consulted and we will follow their recommendations Continue neuro checks every 4 hours We will start Aspirin 81mg daily PT/ST/OT B12, folate, thiamine levels were ordered given her history of bariatric surgery. Vitamin B12- 1040. Patient is started on zinc and magnesium today. Follow up with nutrition evaluation request. Headaches, POA Not associated with tearing of eyes, eye pain, photosensitivity, facial/temporal tenderness Likely stress related or secondary to fatigue Continue acetaminophen p.r.n. as needed We will monitor any changes in pattern/severity or frequency Post gastric bypass/sleeve surgery status We will consult nutrition for comprehensive supplementation plan insulin patient is started on magnesium and zinc. Vitamin B12- 1040. Follow up with serum folate levels. Follow up with iron panel studies Mild mastoiditis, left-sided No fever no pain noted, asymptomatic No need for IV antibiotics We will observe for any new symptoms for now Chronic small vessel ischemic changes on MRI Likely age related or secondary to chronic hypertension Sinus arrhythmia, RBBB and LAFB on EKG [07/16], POA Telemetry shows sinus rhythm currently Cardiology is consulted and we will follow their recommendations Continue monitoring for arrhythmia syncope or palpitations 2D echo showed preserved LV function with EF greater than 70% Hyperlipemia * Patient ASCVD score 7.8, LDL - 101 * Patient was started on moderate intensity statin, atorvastatin 20 mg. Discharge Instructions: Discharge Instructions: *Follow up with your primary care physician in 2 - 3 days after discharge. *Follow up with neurology and cardiology as instructed. *Continue all medications as prescribed. Do not discontinue or change dosages without consulting your PCP. *Gradually resume normal activities as tolerated. *Continue a balanced diet . Reduce salt intake to help manage BP. *Seek immediate medical attention if you experience chest pain, SOB or severe headache. *Smoking cessation is strongly advised. Resources for quitting smoking are available upon request. Home Medications: Active Scripts Amlodipine Besylate (Norvasc) 5 Mg Tablet, 1 TAB PO DAILY for 30 Days, #30 TAB 0 Refills Prov:EMANUEL GARVEY MD 07/21/25 Lisinopril (Lisinopril) 20 Mg Tablet, 1 TAB PO DAILY for 30 Days, #30 TAB 0 Refills Prov:EMANUEL GARVEY MD 07/21/25 Reported Medications Famotidine (Famotidine) 40 Mg Tablet, 1 TAB PO HS for 30 Days, #30 TAB 0 Refills 07/18/25 Pantoprazole Sodium (Pantoprazole Sodium) 40 Mg Tablet.dr, 1 TAB PO DAILY for 30 Days, #30 TAB 0 Refills 07/18/25 Time spent arranging discharge: 1-30 minutes ATTESTATION BY PHYSICIAN I have seen and examined the patient. I reviewed the documentation, medical decision making, and treatment plan as noted by the resident physician above. I agree with the findings and plan of care. LACHO ALVES MD, OBI, ULOMA E MD Jul 21, 2025 13:19
--- NOTE | 2025-07-21 14:44 | HMCIMG ---
EXAM: CT Cervical Spine Without IV contrast. CLINICAL HISTORY: parasthesia in left upper extremity, neck pain TECHNIQUE: Axial computed tomography images of the cervical spine without intravenous contrast. Sagittal and coronal reformatted images were generated. COMPARISON: None provided. FINDINGS: ALIGNMENT: There is a straightening of the cervical spine that may reflect paraspinal muscle spasm. DEGENERATIVE CHANGES: Cervical spondylosis is evident by anterior osteophytes, uncovertebral joint hypertrophy, and multilevel facet joint osteoarthritis. There is mild to moderate multilevel degenerative disc disease, more pronounced at C5-C7. No significant canal stenosis or neural foraminal narrowing is evident. SOFT TISSUES: The prevertebral soft tissues are within normal limits. BONES: No acute fracture or aggressive appearing osseous lesion. IMPRESSION: 1. No acute osseous injury. 2. Cervical spondylosis with mild to moderate multilevel degenerative disc disease, more pronounced at C5-C7. /[place]
--- NOTE | 2025-07-21 18:40 | NUR ---
DISCHARGE NOTE IV and ID bands removed. Discharge instructions reviewed with patient and spouse at bedside. Attempted to schedule follow up appointments with Cardiology and Primary Care Physician. Both offices insist that they call patient to schedule follow up appointment. Patient taken down to personal vehicle with spouse.
== END 2025-07-21 14:10 | disposition home or self-care (01) | DRG 305 ==
LOC: EDH 12:35 → EDHIP 16:20 → 2CH 19:27 → 4DH 07-18 11:10
PROVIDERS: ADMIT Internal Medicine; ATTEND Internal Medicine
DX: I16.1 Hypertensive emergency (principal); G45.9 Transient cerebral ischemic attack, unspecified; I45.2 Bifascicular block; Z68.41 Body mass index [BMI] 40.0-44.9, adult; E66.01 Morbid (severe) obesity due to excess calories; G44.209 Tension-type headache, unspecified, not intractable; H70.92 Unspecified mastoiditis, left ear; E11.9 Type 2 diabetes mellitus without complications; E78.5 Hyperlipidemia, unspecified; G51.0 Bell's palsy; G43.909 Migraine, unspecified, not intractable, without status migrainosus; I10 Essential (primary) hypertension; Z86.73 Personal history of transient ischemic attack (TIA), and cerebral infarction without residual deficits; Z98.84 Bariatric surgery status; Z51.5 Encounter for palliative care; Z79.899 Other long term (current) drug therapy
CPT/HCPCS: 36415; 70450; 70496; 70498; 70551; 71045; 72125; 75574; 80048; 80061; 80305; 81001; 82306; 82550; 82607; 82746; 82948; 83036; 83540; 83550; 83721; 83735; 84145; 84443; 84484; 85025; 85027; 85610; 85651; 85730; 86140; 92522; 92610; 93005; 93306; 93356; 93975; 96374; 99291; G0378; J0360; J3490; Q9967; A4216; J1308